=== PATIENT | male | born 1970 | race Caucasian/White ===

== ENCOUNTER 2020-07-18 14:45 | Emergency (ER) | payer MEDICAID, SELFPAY ==
--- NOTE | ~2020-07-18 | US_ITS ---
EXAMINATION: US VENOUS ULTRASOUND WITH DOPPLER LOWER EXTREMITY, BILATERAL CLINICAL INFORMATION: Bilateral lower extremity edema and pain COMPARISON: None TECHNIQUE: Ultrasound of the deep veins is performed from the hip to the calf with compression sonography and color and pulse Doppler assessment. Spectral analysis with color-flow imaging is performed. FINDINGS: RIGHT: There is normal venous compression and respiratory variation and augmented flow. The visualized common femoral vein, superficial femoral vein, profunda femoral vein, popliteal vein, and the trifurcation region shows no evidence of deep venous thrombosis. There is no significant popliteal fossa cyst. LEFT: There is normal venous compression and respiratory variation and augmented flow. The visualized common femoral vein, superficial femoral vein, profunda femoral vein, popliteal vein, and the trifurcation region shows no evidence of deep venous thrombosis. There is no significant popliteal fossa cyst. If the patient's symptoms persist, followup ultrasound in 5 days 7 days might be of value to exclude proximal propagation from a non-visualized calf vein. US/US venous duplex LE BI IMPRESSION: No DVT demonstrated in either lower extremity.
[2020-07-18 14:56] VITALS: BP 135/71; PULSE 97; RESP 18; TEMP 36.8; O2SAT 97; BMI 25.2
--- NOTE | 2020-07-18 15:02 | ED.GENADULT ---
HPI - General Adult General Chief complaint: General Medical <Armin Grullon NP - Last Filed: 07/18/20 16:54> Stated complaint: leg swelling <Armin Grullon NP - Last Filed: 07/18/20 16:54> Time Seen by Provider: 07/18/20 15:02 <Armin Grullon NP - Last Filed: 07/18/20 16:54> Source: patient <Armin Grullon NP - Last Filed: 07/18/20 16:54> Mode of arrival: ambulatory <Armin Grullon NP - Last Filed: 07/18/20 16:54> Limitations: no limitations <Armin Grullon NP - Last Filed: 07/18/20 16:54> History of Present Illness HPI narrative: Pleasant 50-year-old male with prior history of alcohol abuse has been sober for several weeks now he is in a senior living house and history of anxiety and depression who presents today with complaint of bilateral lower extremity swelling from the ankle down couple days and now up to his null. He otherwise denies any history of chest pain or shortness of breath, no redness or rash to the feet. No fever. No trouble with urination. No back pain. No headache or dizziness. <Armin Grullon NP - Last Filed: 07/18/20 16:54> Onset (ago): day(s) <Armin Grullon NP - Last Filed: 07/18/20 16:54> Location: lower extremity <Armin Grullon NP - Last Filed: 07/18/20 16:54> Radiation: non-radiation <Armin Grullon NP - Last Filed: 07/18/20 16:54> Severity: mild and moderate <Armin Grullon NP - Last Filed: 07/18/20 16:54> Quality: burning and aching <Armin Grullon NP - Last Filed: 07/18/20 16:54> Pain Consistency: constant <Armin Grullon NP - Last Filed: 07/18/20 16:54> Relieving factors: immobilization and other (Elevation) <Armin Grullon NP - Last Filed: 07/18/20 16:54> Exacerbating factors: none <Armin Grullon NP - Last Filed: 07/18/20 16:54> Associated symptoms: denies other symptoms <Armin Grullon NP - Last Filed: 07/18/20 16:54> Treatments prior to arrival: none <YADIRA Gaona Last Filed: 07/18/20 16:54> Related Data Home medications: Previous Rx's Medication Instructions Recorded furosemide [Lasix] 10 mg PO QAM #14 tab 07/18/20 <YADIRA Gaona Last Filed: 07/18/20 16:54> Allergies/adverse reactions: Allergies Allergy/AdvReac Type Severity Reaction Status Date / Time No Known Allergies Allergy Unverified 01/24/20 16:25 [No Known Allergies*] <YADIRA Gaona Last Filed: 07/18/20 16:54> Review of Systems Review of Systems: Constitutional: No Weight loss, No Fever, No Chills, No Night Sweats, No Fatigue, No Malaise ENT/Mouth: No Hearing loss, No Ear Pain, No Nasal Congestion, No Sinus Pain, No Hoarseness, No sore throat, No Rhinorrhea, No Swallowing Difficulty Eyes: No Eye Pain, No Swelling, No Redness, No Foreign Body, No Discharge, No Vision Changes Cardiovascular: No Chest Pain, No SOB, No Dyspnea on Exertion, No Orthopnea, No Palpitations Respiratory: No Cough, No Sputum, No Wheezing, No Smoke Exposure, No Dyspnea Gastrointestinal: No Nausea, No Vomiting, No Diarrhea, No Constipation, No abdominal Pain, No Hematochezia, No Melena Genitourinary: No Dysuria, No Urinary Frequency, No Hematuria, No Urinary Incontinence, No Urgency, No Flank Pain, No Urinary Flow Changes, No Hesitancy Musculoskeletal: No joint pain, No Myalgias, No Joint Swelling Skin: No Skin Lesions, No rash Neuro: No Weakness, No Numbness, No Paresthesias, No Loss of Consciousness, No Dizziness, No Headache Psych: No Anxiety/Panic, No Depression, No SI/HI/AH/VH, No Social Issues Heme/Lymph: No Bruising, No Bleeding,No Lymphadenopathy Endocrine: No Polyuria, No Polydipsia, No Temperature Intolerance <YADIRA Gaona Last Filed: 07/18/20 16:54> Yes all other systems are reviewed and are negative <Armin Grullon NP - Last Filed: 07/18/20 16:54> [facility] Past Medical History Medical History: Medical History (Updated 07/18/20 @ 17:40 by Alma Gomez NP) Alcohol abuse Anxiety Depression <Armin Grullon NP - Last Filed: 07/18/20 16:54> Social History Social History: Social History Advance Directives: No Advance Directives Information Provided: Yes <Armin rGullon NP - Last Filed: 07/18/20 16:54> Physical Exam Vital Signs: Vital Signs: Last Vital Signs Temp 98.2 F 07/18/20 14:56 Pulse 60 07/18/20 17:25 Resp 16 07/18/20 17:25 BP 142/69 H 07/18/20 17:25 Pulse Ox 98 07/18/20 17:25 Body Mass Index 25.2 Reviewed <Armin Grullon NP - Last Filed: 07/18/20 16:54> Vital Signs: Last Vital Signs Temp 98.2 F 07/18/20 14:56 Pulse 60 07/18/20 17:25 Resp 16 07/18/20 17:25 BP 142/69 H 07/18/20 17:25 Pulse Ox 98 07/18/20 17:25 Body Mass Index 25.2 <Alma Gomez NP - Last Filed: 07/18/20 17:46> Const: General: cooperative and healthy appearing; No acute distress or intoxicated appearing <Armin Grullon NP - Last Filed: 07/18/20 16:54> Nutritional Appearance: average body habitus <Armin Grullon NP - Last Filed: 07/18/20 16:54> Orientation/consciousness: patient oriented x3 <Armin Grullon NP - Last Filed: 07/18/20 16:54> HENMT: Head: Yes normal to inspection <Armin Grullon NP - Last Filed: 07/18/20 16:54> Ears: hearing grossly normal bilaterally <Armin Grullon NP - Last Filed: 07/18/20 16:54> Eyes: General: appearance normal, both eyes and all related structures <Armin Grullon NP - Last Filed: 07/18/20 16:54> Visual Enrique: normal visual enrique by confrontation <Armin Grullon NP - Last Filed: 07/18/20 16:54> Neck: Neck: Yes normal visual inspection, No positive Brudzinski's sign, No positive Kernig's sign and No tender <[facility] Mitchel - Last Filed: 07/18/20 16:54> Thyroid: Thyroid normal <[facility] Mitchel [facility] Last Filed: 07/18/20 16:54> Chest: Chest palpation & inspection: normal inspection of the chest <[facility] Grullon - Last Filed: 07/18/20 16:54> Resp: Effort & Inspection: normal respiratory effort <[facility] Grullon - Last Filed: 07/18/20 16:54> Auscultation: clear to auscultation bilaterally <[facility] Grullon - Last Filed: 07/18/20 16:54> Cardio: Jugular venous distension: no JVD <[facility] Mitchel [facility] Last Filed: 07/18/20 16:54> Rhythm: regular rhythm <[facility] Grullon - Last Filed: 07/18/20 16:54> Heart sounds: S1 normal heart sound present and S2 normal heart sound present [facility] Last Filed: 07/18/20 16:54> GI: Inspection: Yes normal to inspection <[facility] Grullon - Last Filed: 07/18/20 16:54> Palpation (GI): Soft to palpation [facility] - Last Filed: 07/18/20 16:54> Percussion: Yes normal to percussion <[facility] Grullon - Last Filed: 07/18/20 16:54> Auscultation: normal bowel sounds <[facility] - Last Filed: 07/18/20 16:54> : General: Yes no CVA tenderness <[facility] Grullon - Last Filed: 07/18/20 16:54> Back/Spine/Pelvis: Back: no CVA tenderness <[facility] Grullon - Last Filed: 07/18/20 16:54> Skin: General skin exam: no rashes or lesions noted <[facility] Grullon - Last Filed: 07/18/20 16:54> Neuro: General: patient oriented x3 <Armin Grullon NP - Last Filed: 07/18/20 16:54> Extrem: General: Yes normal to inspection <Armin Grullon NP - Last Filed: 07/18/20 16:54> Left lower extremity: full ROM, normal capillary refill and lower leg (Bilateral extremities skin tone, pulses and reflexes wnl. ) Details: non-pitting edema (Mid null down to the ankle bilateral lower extremity.) Details: 1+; no abrasions, no ecchymosis, no crepitus, no foreign bodies, no penetrating wound and no unusual warmth; no cyanosis <Armin Grullon NP - Last Filed: 07/18/20 16:54> Course Course Course Narrative: 5:30 p.m., discussion with patient regarding negative duplex and that he needs follow-up with primary care physician as he may need further diuresis for his bilateral lower extremity edema. Patient verbalized understanding of plan, states that he will do his best to make it to his primary care which may be complicated as he is in detox at this moment. Will prescribe Lasix 10 mg daily for the next 15 days. Patient does understand that he must follow up with PCP. Patient verbalized understanding of and agrees to plan of care discharge home. <Alma Gomez NP - Last Filed: 07/18/20 17:46> Reevaluation(s) Reevaluation #1: Does not report any nephrotoxic drugs, exam without any evidence of significant edema or infection. Will check labs, UA, bilateral lower extremity ultrasound rule out DVT. Differential diagnosis include but not limited to sodium retention, idiopathic venous obstruction versus sufficiency. <Armin Grullon NP - Last Filed: 07/18/20 16:54> Reevaluation #2: 1640 At this time ultrasound bilateral extremity are pending patient is in the ultrasound department labs otherwise look stable. UA without protein or ketone. Sign-out at this time pending the ultrasound results if this is negative anticipation will be for patient be discharged with elevation and sodium restriction. Case discussed with Swathi pending disposition. <Armin Grullon NP - Last Filed: 07/18/20 16:54> Medical Decision Making Lab Data Result diagrams: : 07/18/20 15:24 07/18/20 15:24 <Armin Grullon NP - Last Filed: 07/18/20 16:54> Labs: Lab Results 07/18/20 07/18/20 07/18/20 Range/Units 15:24 15:24 15:24 WBC 7.2 (4.8-10.8) X10*3/uL RBC 3.92 L (4.60-5.80) X10*6/uL Hgb 12.3 L (14.0-18.0) g/dl Hct 36.4 L (42-52) % MCV 92.9 (80-98) fL MCH 31.4 (27.0-33.0) pg MCHC 33.8 (31.0-36.0) g/dl RDW 14.0 (11.0-16.0) % Plt Count 248 (160-400) X10*3/uL MPV 8.7 L (9.4-12.4) fL Immature Gran % (Auto) 0.1 (0.0-0.4) % Neut % (Auto) 49.8 (45-73) % Lymph % (Auto) 37.8 (20-40) % [place] % (Auto) 8.3 (2-11) % Eos % (Auto) 3.3 (0-4) % Baso % (Auto) 0.7 (0-2) % Lymph # (Auto) 2.7 (1.2-4.9) X10*3/uL [place] # (Auto) 0.6 (0.1-1.2) X10*3/uL Eos # (Auto) 0.2 (0.0-0.4) X10*3/uL Baso # (Auto) 0.1 (0.0-0.2) X10*3/uL Abs Immat Gran (auto) 0.01 (0.00-0.03) X10*3/uL Absolute Neuts (auto) 3.6 (2.0-8.3) X10*3/uL Absolute Nucleated RBC 0.000 (0.0-0.012) X10*3/uL Nucleated RBC % (auto) 0.0 (0.0-0.2) /100WBC PT 11.0 (10.8-13.0) SEC INR 0.9 (0.9-1.1) APTT 33.9 (24.1-38.0) SEC Sodium 142 (135-145) mmol/L Potassium 4.2 (3.3-5.1) mmol/L Chloride 103 (96-108) mmol/L Carbon Dioxide 30 H (22-29) mmol/L Anion Gap 13 (12-20) BUN 22 H (9-16) mg/dL Creatinine 1.24 (0.5-1.4) mg/dL Estim Creat Clear Calc 67.4 Estimated GFR > 60 Random Glucose 99 (60-115) mg/dL Calcium 9.6 (8.4-10.2) mg/dL Magnesium 1.8 (1.6-2.6) mg/dL Total Bilirubin 0.2 (0.0-1.0) mg/dL AST 25 (5-37) U/L ALT 16 (0-40) U/L Alkaline Phosphatase 70 (39-117) U/L Total Creatine Kinase 187 H (38-174) U/L B-Natriuretic Peptide (<100) pg/mL Total Protein 7.1 (6.5-8.0) g/dL Albumin 4.4 (3.5-5.0) g/dL Urine Color Urine Appearance Urine pH (5.0-8.0) Ur Specific [place] (1.005-1.025) Urine Protein (NEG-TRACE) MG/DL Urine Glucose (UA) (NEG) MG/DL Urine Ketones (NEG) MG/DL Urine Blood (NEG) Urine Nitrite (NEG) Ur Leukocyte Esterase (NEG) Urine RBC (0) /HPF Urine WBC (0-4) /HPF Ur Squamous Epith Cells /LPF Urine Bacteria /LPF Urine Opiates Screen (Not Detect) Ur Barbiturates Screen (Not Detect) Ur Phencyclidine Scrn (Not Detect) Ur Amphetamines Screen (Not Detect) U Benzodiazepines Scrn (Not Detect) Urine Cocaine Screen (Not Detect) U Marijuana (THC) Screen (Not Detect) 07/18/20 07/18/20 07/18/20 Range/Units 15:24 15:31 15:31 WBC (4.8-10.8) X10*3/uL RBC (4.60-5.80) X10*6/uL Hgb (14.0-18.0) g/dl Hct (42-52) % MCV (80-98) fL MCH (27.0-33.0) pg MCHC (31.0-36.0) g/dl RDW (11.0-16.0) % Plt Count (160-400) X10*3/uL MPV (9.4-12.4) fL Immature Gran % (Auto) (0.0-0.4) % Neut % (Auto) (45-73) % Lymph % (Auto) (20-40) % [place] % (Auto) (2-11) % Eos % (Auto) (0-4) % Baso % (Auto) (0-2) % Lymph # (Auto) (1.2-4.9) X10*3/uL [place] # (Auto) (0.1-1.2) X10*3/uL Eos # (Auto) (0.0-0.4) X10*3/uL Baso # (Auto) (0.0-0.2) X10*3/uL Abs Immat Gran (auto) (0.00-0.03) X10*3/uL Absolute Neuts (auto) (2.0-8.3) X10*3/uL Absolute Nucleated RBC (0.0-0.012) X10*3/uL Nucleated RBC % (auto) (0.0-0.2) /100WBC PT (10.8-13.0) SEC INR (0.9-1.1) APTT (24.1-38.0) SEC Sodium (135-145) mmol/L Potassium (3.3-5.1) mmol/L Chloride (96-108) mmol/L Carbon Dioxide (22-29) mmol/L Anion Gap (12-20) BUN (9-16) mg/dL Creatinine (0.5-1.4) mg/dL Estim Creat Clear Calc Estimated GFR Random Glucose (60-115) mg/dL Calcium (8.4-10.2) mg/dL Magnesium (1.6-2.6) mg/dL Total Bilirubin (0.0-1.0) mg/dL AST (5-37) U/L ALT (0-40) U/L Alkaline Phosphatase (39-117) U/L Total Creatine Kinase (38-174) U/L B-Natriuretic Peptide 66 (<100) pg/mL Total Protein (6.5-8.0) g/dL Albumin (3.5-5.0) g/dL Urine Color YELLOW Urine Appearance CLEAR Urine pH 7.0 (5.0-8.0) Ur Specific [place] 1.010 (1.005-1.025) Urine Protein NEG (NEG-TRACE) MG/DL Urine Glucose (UA) NEG (NEG) MG/DL Urine Ketones NEG (NEG) MG/DL Urine Blood NEG (NEG) Urine Nitrite NEG (NEG) Ur Leukocyte Esterase NEG (NEG) Urine RBC 0 (0) /HPF Urine WBC 0 (0-4) /HPF Ur Squamous Epith Cells NONE /LPF Urine Bacteria NONE /LPF Urine Opiates Screen Not Detected (Not Detect) Ur Barbiturates Screen POSITIVE H (Not Detect) Ur Phencyclidine Scrn Not Detected (Not Detect) Ur Amphetamines Screen Not Detected (Not Detect) U Benzodiazepines Scrn Not Detected (Not Detect) Urine Cocaine Screen Not Detected (Not Detect) U Marijuana (THC) Screen Not Detected (Not Detect) <Armin Grullon, [employer] - Last Filed: 07/18/20 16:54> Lab Results 07/18/20 07/18/20 07/18/20 Range/Units 15:24 15:24 15:24 WBC 7.2 (4.8-10.8) X10*3/uL RBC 3.92 L (4.60-5.80) X10*6/uL Hgb 12.3 L (14.0-18.0) g/dl Hct 36.4 L (42-52) % MCV 92.9 (80-98) fL MCH 31.4 (27.0-33.0) pg MCHC 33.8 (31.0-36.0) g/dl RDW 14.0 (11.0-16.0) % Plt Count 248 (160-400) X10*3/uL MPV 8.7 L (9.4-12.4) fL Immature Gran % (Auto) 0.1 (0.0-0.4) % Neut % (Auto) 49.8 (45-73) % Lymph % (Auto) 37.8 (20-40) % [place] % (Auto) 8.3 (2-11) % Eos % (Auto) 3.3 (0-4) % Baso % (Auto) 0.7 (0-2) % Lymph # (Auto) 2.7 (1.2-4.9) X10*3/uL [place] # (Auto) 0.6 (0.1-1.2) X10*3/uL Eos # (Auto) 0.2 (0.0-0.4) X10*3/uL Baso # (Auto) 0.1 (0.0-0.2) X10*3/uL Abs Immat Gran (auto) 0.01 (0.00-0.03) X10*3/uL Absolute Neuts (auto) 3.6 (2.0-8.3) X10*3/uL Absolute Nucleated RBC 0.000 (0.0-0.012) X10*3/uL Nucleated RBC % (auto) 0.0 (0.0-0.2) /100WBC PT 11.0 (10.8-13.0) SEC INR 0.9 (0.9-1.1) APTT 33.9 (24.1-38.0) SEC Sodium 142 (135-145) mmol/L Potassium 4.2 (3.3-5.1) mmol/L Chloride 103 (96-108) mmol/L Carbon Dioxide 30 H (22-29) mmol/L Anion Gap 13 (12-20) BUN 22 H (9-16) mg/dL Creatinine 1.24 (0.5-1.4) mg/dL Estim Creat Clear Calc 67.4 Estimated GFR > 60 Random Glucose 99 (60-115) mg/dL Calcium 9.6 (8.4-10.2) mg/dL Magnesium 1.8 (1.6-2.6) mg/dL Total Bilirubin 0.2 (0.0-1.0) mg/dL AST 25 (5-37) U/L ALT 16 (0-40) U/L Alkaline Phosphatase 70 (39-117) U/L Total Creatine Kinase 187 H (38-174) U/L B-Natriuretic Peptide (<100) pg/mL Total Protein 7.1 (6.5-8.0) g/dL Albumin 4.4 (3.5-5.0) g/dL Urine Color Urine Appearance Urine pH (5.0-8.0) Ur Specific [place] (1.005-1.025) Urine Protein (NEG-TRACE) MG/DL Urine Glucose (UA) (NEG) MG/DL Urine Ketones (NEG) MG/DL Urine Blood (NEG) Urine Nitrite (NEG) Ur Leukocyte Esterase (NEG) Urine RBC (0) /HPF Urine WBC (0-4) /HPF Ur Squamous Epith Cells /LPF Urine Bacteria /LPF Urine Opiates Screen (Not Detect) Ur Barbiturates Screen (Not Detect) Ur Phencyclidine Scrn (Not Detect) Ur Amphetamines Screen (Not Detect) U Benzodiazepines Scrn (Not Detect) Urine Cocaine Screen (Not Detect) U Marijuana (THC) Screen (Not Detect) 07/18/20 07/18/20 07/18/20 Range/Units 15:24 15:31 15:31 WBC (4.8-10.8) X10*3/uL RBC (4.60-5.80) X10*6/uL Hgb (14.0-18.0) g/dl Hct (42-52) % MCV (80-98) fL MCH (27.0-33.0) pg MCHC (31.0-36.0) g/dl RDW (11.0-16.0) % Plt Count (160-400) X10*3/uL MPV (9.4-12.4) fL Immature Gran % (Auto) (0.0-0.4) % Neut % (Auto) (45-73) % Lymph % (Auto) (20-40) % [place] % (Auto) (2-11) % Eos % (Auto) (0-4) % Baso % (Auto) (0-2) % Lymph # (Auto) (1.2-4.9) X10*3/uL [place] # (Auto) (0.1-1.2) X10*3/uL Eos # (Auto) (0.0-0.4) X10*3/uL Baso # (Auto) (0.0-0.2) X10*3/uL Abs Immat Gran (auto) (0.00-0.03) X10*3/uL Absolute Neuts (auto) (2.0-8.3) X10*3/uL Absolute Nucleated RBC (0.0-0.012) X10*3/uL Nucleated RBC % (auto) (0.0-0.2) /100WBC PT (10.8-13.0) SEC INR (0.9-1.1) APTT (24.1-38.0) SEC Sodium (135-145) mmol/L Potassium (3.3-5.1) mmol/L Chloride (96-108) mmol/L Carbon Dioxide (22-29) mmol/L Anion Gap (12-20) BUN (9-16) mg/dL Creatinine (0.5-1.4) mg/dL Estim Creat Clear Calc Estimated GFR Random Glucose (60-115) mg/dL Calcium (8.4-10.2) mg/dL Magnesium (1.6-2.6) mg/dL Total Bilirubin (0.0-1.0) mg/dL AST (5-37) U/L ALT (0-40) U/L Alkaline Phosphatase (39-117) U/L Total Creatine Kinase (38-174) U/L B-Natriuretic Peptide 66 (<100) pg/mL Total Protein (6.5-8.0) g/dL Albumin (3.5-5.0) g/dL Urine Color YELLOW Urine Appearance CLEAR Urine pH 7.0 (5.0-8.0) Ur Specific [place] 1.010 (1.005-1.025) Urine Protein NEG (NEG-TRACE) MG/DL Urine Glucose (UA) NEG (NEG) MG/DL Urine Ketones NEG (NEG) MG/DL Urine Blood NEG (NEG) Urine Nitrite NEG (NEG) Ur Leukocyte Esterase NEG (NEG) Urine RBC 0 (0) /HPF Urine WBC 0 (0-4) /HPF Ur Squamous Epith Cells NONE /LPF Urine Bacteria NONE /LPF Urine Opiates Screen Not Detected (Not Detect) Ur Barbiturates Screen POSITIVE H (Not Detect) Ur Phencyclidine Scrn Not Detected (Not Detect) Ur Amphetamines Screen Not Detected (Not Detect) U Benzodiazepines Scrn Not Detected (Not Detect) Urine Cocaine Screen Not Detected (Not Detect) U Marijuana (THC) Screen Not Detected (Not Detect) <Alma Gomez NP - Last Filed: 07/18/20 17:46> Imaging Data Venous US: Attestation: I personally reviewed and interpreted this imaging study as follows: <Alma Gomez NP - Last Filed: 07/18/20 17:46> Radiologist's impression: EXAMINATION: US VENOUS ULTRASOUND WITH DOPPLER LOWER EXTREMITY, BILATERAL CLINICAL INFORMATION: Bilateral lower extremity edema and pain COMPARISON: None TECHNIQUE: Ultrasound of the deep veins is performed from the hip to the calf with compression sonography and color and pulse Doppler assessment. Spectral analysis with color-flow imaging is performed. FINDINGS: RIGHT: There is normal venous compression and respiratory variation and augmented flow. The visualized common femoral vein, superficial femoral vein, profunda femoral vein, popliteal vein, and the trifurcation region shows no evidence of deep venous thrombosis. There is no significant popliteal fossa cyst. LEFT: There is normal venous compression and respiratory variation and augmented flow. The visualized common femoral vein, superficial femoral vein, profunda femoral vein, popliteal vein, and the trifurcation region shows no evidence of deep venous thrombosis. There is no significant popliteal fossa cyst. If the patient's symptoms persist, followup ultrasound in 5 days 7 days might be of value to exclude proximal propagation from a non-visualized calf vein. US/US venous duplex LE BI IMPRESSION: No DVT demonstrated in either lower extremity. <Alma Gomez NP - Last Filed: 07/18/20 17:46> Discharge Plan Discharge Clinical Impression: Edema Qualifiers: Edema type: unspecified Qualified Code(s): R60.9 - Edema, unspecified <Armin Grullon NP - Last Filed: 07/18/20 16:54> Patient Disposition: Home, Self-Care <Armin Grullon NP - Last Filed: 07/18/20 16:54> Instructions: Edema (ED) <Armin Grullon NP - Last Filed: 07/18/20 16:54> Additional Instructions: You were evaluated for bilateral lower extremity edema. Your venous duplex is negative for blood clots. Please follow-up with your primary care physician. We prescribed Lasix, which is a diuretic. Please take this in the morning to help decrease lower leg swelling. You must make an appointment with your primary care physician for further care as you may need continued diuretics as well as continued follow-up for your lower extremity edema. Thank you for choosing this emergency department for evaluation. Please follow-up with primary care physician as needed. Return to the emergency department for any new, concerning, or worsening symptoms. <Armin Grullon NP - Last Filed: 07/18/20 16:54> Prescriptions: New furosemide [Lasix] 20 mg tablet 10 mg PO QAM Qty: 14 RF: 0 <Armin Grullon NP - Last Filed: 07/18/20 16:54>
[2020-07-18 15:28] LABS: MANUAL DIFF FLAG NO
[2020-07-18 15:31] LABS: Basophils Absolute Auto 0.1 X10*3/uL (0.0-0.2); Basophils Percent Auto 0.7 % (0-2); Eosinophils Absolute Auto 0.2 X10*3/uL (0.0-0.4); Eosinophils Percent Auto 3.3 % (0-4); Hematocrit 36.4 % (42-52); Hemoglobin 12.3 g/dl (14.0-18.0); Imm Gran Abs Auto 0.01 X10*3/uL (0.00-0.03); Imm Gran Pct Auto 0.1 % (0.0-0.4); Lymphocytes Absolute Auto 2.7 X10*3/uL (1.2-4.9); Lymphocytes Percent Auto 37.8 % (20-40); Mean Corpuscular HGB Conc 33.8 g/dl (31.0-36.0); Mean Corpuscular Hemoglobin 31.4 pg (27.0-33.0); Mean Corpuscular Volume 92.9 fL (80-98); Mean Platelet Volume 8.7 fL (9.4-12.4); Monocytes Absolute Auto 0.6 X10*3/uL (0.1-1.2); Monocytes Percent Auto 8.3 % (2-11); Neutrophils Absolute Auto 3.6 X10*3/uL (2.0-8.3); Neutrophils Percent Auto 49.8 % (45-73); Platelet Count 248 X10*3/uL (160-400); Red Blood Count 3.92 X10*6/uL (4.60-5.80); White Blood Count 7.2 X10*3/uL (4.8-10.8)
[2020-07-18 15:39] LABS: Glucose Urine UA NEG (NEG); Leukocyte Esterase Urine NEG (NEG); Nitrite Urine NEG (NEG); Urine Blood NEG (NEG); Urine Ketones NEG (NEG); Urine Protein NEG (NEG-TRACE)
[2020-07-18 15:45] LABS: Appearance Urine CLEAR; Color Urine YELLOW
[2020-07-18 15:49] LABS: INTERNATIONAL NORM RATIO 0.9 (0.9-1.1)
--- NOTE | 2020-07-18 15:49 | PC.NURSE ---
SLOW STEADY GAIT MOVING ALL EXTREMITIES TO BATHROOM AND BACK TO ROOM, AMBULATED 40 FT. NO SOB OR DIFF BREATHING, A+OX3, COOPERATIVE, AWAITING US.
[2020-07-18 15:52] LABS: Partial Thromboplastin Time 33.9 SEC (24.1-38.0)
[2020-07-18 15:54] LABS: RBC Urine 0 /HPF (0); WBC Urine 0 /HPF (0-4)
[2020-07-18 15:58] LABS: Alanine Aminotransferase 16 U/L (0-40); Albumin Level 4.4 g/dL (3.5-5.0); Alkaline Phosphatase 70 U/L (39-117); Anion Gap 13 (12-20); Aspartate Amino Transferase 25 U/L (5-37); Bilirubin Total 0.2 mg/dL (0.0-1.0); Blood Urea Nitrogen 22 mg/dL (9-16); Calcium 9.6 mg/dL (8.4-10.2); Carbon Dioxide 30 mmol/L (22-29); Chloride 103 mmol/L (96-108); Creatinine Clr Calc Pharmacy 67.4; Estimated Glomerular Filt Rate > 60; Glucose Random 99 mg/dL (60-115); Magnesium 1.8 mg/dL (1.6-2.6); Potassium 4.2 mmol/L (3.3-5.1); Sodium 142 mmol/L (135-145); Total Protein 7.1 g/dL (6.5-8.0)
[2020-07-18 16:02] LABS: B Type Natriuretic Peptide 66 pg/mL (<100)
[2020-07-18 16:08] LABS: Amphetamine Screen Urine Not Detected (Not Detect); Barbiturates, Urine POSITIVE (Not Detect); Benzodiazepines Screen Urine Not Detected (Not Detect); Cannabinoid Screen Urine Not Detected (Not Detect); Cocaine Screen Urine Not Detected (Not Detect); Opiate Screen Urine Not Detected (Not Detect); Phencyclidine Screen Urine Not Detected (Not Detect)
[2020-07-18 17:25] VITALS: BP 142/69; PULSE 60; RESP 16; O2SAT 98
== END 2020-07-18 17:54 | disposition home or self-care (01) ==
PROVIDERS: Nurse Practitioner Primary Care; Emergency Provider Emergency Medicine Emergency Medical Services; PCP Nurse Practitioner Family
DX: R60.0 Localized edema (principal); M79.662 Pain in left lower leg; M79.661 Pain in right lower leg; F10.10 Alcohol abuse, uncomplicated
CPT/HCPCS: 36415; 80053; 80307; 81001; 82550; 83735; 83880; 85025; 85610; 85730; 93970; 99284

== ENCOUNTER 2021-08-11 19:10 | Emergency (ER) | payer MEDICAID, SELFPAY ==
[2021-08-11 19:24] VITALS: BP 139/99; PULSE 100; RESP 18; TEMP 36.5; O2SAT 96; BMI 23.2
--- NOTE | 2021-08-11 19:28 | ED.PSYCH ---
HPI - Psych General Chief Complaint: Psychiatric Symptoms Stated Complaint: SECTION 12 BY THERAPIST,ETOH INTOX,CPD FOR SAFETY Source: patient Mode of arrival: ambulatory Limitations: no limitations History of Present Illness HPI Narrative: 51-year-old male history of depression brought to ED by police under Section 12 for further evaluation. Patient was sent by therapist due to patient making suicidal/homicidal ideations/statements during his therapy visit. As per police patient so far has been pleasant. Related Data Home Medications Medication Instructions Recorded Confirmed acamprosate 333 mg tablet,delayed 2 tab PO BID 08/11/21 08/11/21 release folic acid 1 mg tablet 1 tab PO QAM 08/11/21 08/11/21 hydroxyzine HCl 50 mg tablet 1 - 2 tab PO Q8H PRN 08/11/21 08/11/21 thiamine HCl (vitamin B1) 100 mg 1 tab PO DAILY 08/11/21 08/11/21 tablet Allergies Allergy/AdvReac Type Severity Reaction Status Date / Time No Known Allergies Allergy Unverified 01/24/20 16:25 [No Known Allergies*] Review of Systems Review of Systems: Suicidal/homicidal ideation Yes all other systems are reviewed and are negative [facility] Past Medical History Medical History (Updated 08/12/21 @ 00:05 by ANA Ochoa) Alcohol abuse Anxiety Depression Social History Social History Advance Directives: No Advance Directives Information Provided: Yes Physical Exam Vital Signs: Vital Signs: Last Vital Signs Temp 97.7 F 08/11/21 19:24 Pulse 100 08/11/21 19:24 Resp 18 08/11/21 19:24 BP 139/99 H 08/11/21 19:24 Pulse Ox 96 08/11/21 19:24 BMI result Body Mass Index 23.2 Const: General: cooperative, healthy appearing, comfortable, no acute distress, well developed, alert, awake and Physically active Orientation/consciousness: patient oriented x3 HEENT: Head: Yes normal to inspection, Yes No palpable skull fracture present, Yes normocephalic and No atraumatic Eyes: General: appearance normal, both eyes and all related structures Neck: Neck: Yes normal visual inspection, Yes full ROM, Yes no lymphadenopathy, Yes no meningeal signs, Yes trachea midline, Yes supple, No anterior neck swelling and No tender Chest: Chest palpation & inspection: normal inspection of the chest and normal palpation of entire chest wall Resp: Effort & Inspection: normal respiratory effort and able to speak in complete sentences Auscultation: clear to auscultation bilaterally Cardio: Jugular venous distension: no JVD Heart sounds: S1 normal heart sound present and S2 normal heart sound present GI: Inspection: Yes normal to inspection Palpation (GI): Soft to palpation, not firm, nontender, no guarding and not rigid : General: No CVA tenderness and Yes no CVA tenderness Back/Spine/Pelvis: Back: no CVA tenderness, No CVA tenderness and No back tenderness Skin: General skin exam: no rashes or lesions noted and elasticity normal Neuro: General: patient oriented x3, gait normal, no meningeal signs and CN's II-XI intact bilaterally Cranial nerves: Yes CN's II-XII intact bilaterally Extrem: General: Yes normal to inspection and Yes full ROM Psych: Appearance: grossly normal, well kempt and not disheveled Course Course Course Narrative: Will do basic labs and for crisis evaluation. Reevaluation(s) Reevaluation #1: Alcohol level 386. Patient rest of labs are normal. Patient waiting for [facility] evaluation Time: 00:05 [facility] - Psych Lab Data Result diagrams: 08/11/21 19:54 08/11/21 19:54 Labs: Lab Results 08/11/21 08/11/21 08/11/21 Range/Units 19:54 19:54 19:54 WBC 6.9 (4.8-10.8) X10*3/uL RBC 4.22 L (4.60-5.80) X10*6/uL Hgb 13.4 L (14.0-18.0) g/dl Hct 39.8 L (42.0-52.0) % MCV 94.3 (80.0-98.0) fL MCH 31.8 (27.0-33.0) pg MCHC 33.7 (31.0-36.0) g/dl RDW 15.4 (11.0-16.0) % Plt Count 247 (160-400) X10*3/uL MPV 9.0 L (9.4-12.4) fL Immature Gran % (Auto) 0.3 (0.0-0.4) % Neut % (Auto) 34.1 L (45-73) % Lymph % (Auto) 51.2 H (20-40) % [place] % (Auto) 8.2 (2-11) % Eos % (Auto) 5.2 H (0-4) % Baso % (Auto) 1.0 (0-2) % Lymph # (Auto) 3.5 (1.2-4.9) X10*3/uL [place] # (Auto) 0.6 (0.1-1.2) X10*3/uL Eos # (Auto) 0.4 (0.0-0.4) X10*3/uL Baso # (Auto) 0.1 (0.0-0.2) X10*3/uL Abs Immat Gran (auto) 0.02 (0.00-0.03) X10*3/uL Absolute Neuts (auto) 2.4 (2.0-8.3) x10*3/uL Absolute Nucleated RBC 0.000 (0.0-0.012) X10*3/uL Nucleated RBC % (auto) 0.0 (0.0-0.2) /100WBC Sodium 140 (135-145) mmol/L Potassium 4.2 (3.3-5.1) mmol/L Chloride 104 (96-108) mmol/L Carbon Dioxide 24 (22-29) mmol/L Anion Gap 16 (12-20) BUN 12 (9-16) mg/dL Creatinine 0.97 (0.5-1.4) mg/dL Estim Creat Clear Calc 85.2 Estimated GFR > 60 Random Glucose 115 (60-115) mg/dL Calcium 9.1 (8.4-10.2) mg/dL Magnesium 2.1 (1.6-2.6) mg/dL Total Bilirubin 0.3 (0.0-1.0) mg/dL Direct Bilirubin 0.2 (0.0-0.5) mg/dL AST 41 H D (5-37) U/L ALT 33 (0-40) U/L Alkaline Phosphatase 88 D (39-117) U/L Total Protein 8.3 H (6.5-8.0) g/dL Albumin 5.0 (3.5-5.0) g/dL Urine Color Urine Appearance Urine pH (5.0-8.0) Ur Specific [place] (1.005-1.025) Urine Protein (NEG-TRACE) MG/DL Urine Glucose (UA) (NEG) MG/DL Urine Ketones (NEG) MG/DL Urine Blood (NEG) Urine Nitrite (NEG) Ur Leukocyte Esterase (NEG) Urine RBC (0) /HPF Urine WBC (0-4) /HPF Ur Squamous Epith Cells /LPF Urine Bacteria /LPF Hyaline Casts /LPF Granular Casts /LPF Urine Mucus /LPF Salicylates < 5.0 L (15-30) mg/dL Urine Opiates Screen (Not Detect) Urine Fentanyl Screen (Not Detect) Acetaminophen < 1 (<30) mcg/mL Ur Barbiturates Screen (Not Detect) Ur Phencyclidine Scrn (Not Detect) Ur Amphetamines Screen (Not Detect) U Benzodiazepines Scrn (Not Detect) Urine Cocaine Screen (Not Detect) U Marijuana (THC) Screen (Not Detect) Ethyl Alcohol mg/dL COVID-19 ([facility]) Negative (Negative) COVID-19 Clin Com See Note 08/11/21 08/11/21 08/11/21 Range/Units 19:54 19:54 19:54 WBC (4.8-10.8) X10*3/uL RBC (4.60-5.80) X10*6/uL Hgb (14.0-18.0) g/dl Hct (42.0-52.0) % MCV (80.0-98.0) fL MCH (27.0-33.0) pg MCHC (31.0-36.0) g/dl RDW (11.0-16.0) % Plt Count (160-400) X10*3/uL MPV (9.4-12.4) fL Immature Gran % (Auto) (0.0-0.4) % Neut % (Auto) (45-73) % Lymph % (Auto) (20-40) % [place] % (Auto) (2-11) % Eos % (Auto) (0-4) % Baso % (Auto) (0-2) % Lymph # (Auto) (1.2-4.9) X10*3/uL [place] # (Auto) (0.1-1.2) X10*3/uL Eos # (Auto) (0.0-0.4) X10*3/uL Baso # (Auto) (0.0-0.2) X10*3/uL Abs Immat Gran (auto) (0.00-0.03) X10*3/uL Absolute Neuts (auto) (2.0-8.3) x10*3/uL Absolute Nucleated RBC (0.0-0.012) X10*3/uL Nucleated RBC % (auto) (0.0-0.2) /100WBC Sodium (135-145) mmol/L Potassium (3.3-5.1) mmol/L Chloride (96-108) mmol/L Carbon Dioxide (22-29) mmol/L Anion Gap (12-20) BUN (9-16) mg/dL Creatinine (0.5-1.4) mg/dL Estim Creat Clear Calc Estimated GFR Random Glucose (60-115) mg/dL Calcium (8.4-10.2) mg/dL Magnesium (1.6-2.6) mg/dL Total Bilirubin (0.0-1.0) mg/dL Direct Bilirubin (0.0-0.5) mg/dL AST (5-37) U/L ALT (0-40) U/L Alkaline Phosphatase (39-117) U/L Total Protein (6.5-8.0) g/dL Albumin (3.5-5.0) g/dL Urine Color YELLOW Urine Appearance CLEAR Urine pH 5.0 (5.0-8.0) Ur Specific [place] >= 1.030 H (1.005-1.025) Urine Protein 2+ H (NEG-TRACE) MG/DL Urine Glucose (UA) NEG (NEG) MG/DL Urine Ketones NEG (NEG) MG/DL Urine Blood TRACE (NEG) Urine Nitrite NEG (NEG) Ur Leukocyte Esterase NEG (NEG) Urine RBC 1-4 (0) /HPF Urine WBC 0-2 (0-4) /HPF Ur Squamous Epith Cells TRACE /LPF Urine Bacteria NONE /LPF Hyaline Casts >50 /LPF Granular Casts 1-4 /LPF Urine Mucus 1+ /LPF Salicylates (15-30) mg/dL Urine Opiates Screen Not Detected (Not Detect) Urine Fentanyl Screen Not Detected (Not Detect) Acetaminophen (<30) mcg/mL Ur Barbiturates Screen Not Detected (Not Detect) Ur Phencyclidine Scrn Not Detected (Not Detect) Ur Amphetamines Screen Not Detected (Not Detect) U Benzodiazepines Scrn POSITIVE H (Not Detect) Urine Cocaine Screen Not Detected (Not Detect) U Marijuana (THC) Screen POSITIVE H (Not Detect) Ethyl Alcohol 386 H* mg/dL COVID-19 ([facility]) (Negative) COVID-19 Clin Com Discharge Plan Discharge Clinical Impression: Depression Patient Disposition: Still a Patient Prescriptions: No Action thiamine HCl (vitamin B1) 100 mg tablet 1 tab PO DAILY 0RF hydroxyzine HCl 50 mg tablet 1 - 2 tab PO Q8H PRN (Reason: Anxiety) 0RF folic acid 1 mg tablet 1 tab PO QAM 0RF acamprosate 333 mg tablet,delayed release (DR/EC) 2 tab PO BID 0RF
[2021-08-11 20:01] LABS: MANUAL DIFF FLAG NO
[2021-08-11 20:03] LABS: Appearance Urine CLEAR; Basophils Absolute Auto 0.1 X10*3/uL (0.0-0.2); Color Urine YELLOW; Eosinophils Absolute Auto 0.4 X10*3/uL (0.0-0.4); Eosinophils Percent Auto 5.2 % (0-4); Glucose Urine UA NEG (NEG); Hematocrit 39.8 % (42.0-52.0); Hemoglobin 13.4 g/dl (14.0-18.0); Imm Gran Abs Auto 0.02 X10*3/uL (0.00-0.03); Imm Gran Pct Auto 0.3 % (0.0-0.4); Leukocyte Esterase Urine NEG (NEG); Lymphocytes Absolute Auto 3.5 X10*3/uL (1.2-4.9); Lymphocytes Percent Auto 51.2 % (20-40); Mean Corpuscular HGB Conc 33.7 g/dl (31.0-36.0); Mean Corpuscular Hemoglobin 31.8 pg (27.0-33.0); Mean Corpuscular Volume 94.3 fL (80.0-98.0); Monocytes Absolute Auto 0.6 X10*3/uL (0.1-1.2); Monocytes Percent Auto 8.2 % (2-11); Neutrophils Absolute Auto 2.4 x10*3/uL (2.0-8.3); Neutrophils Percent Auto 34.1 % (45-73); Nitrite Urine NEG (NEG); Platelet Count 247 X10*3/uL (160-400); Red Blood Count 4.22 X10*6/uL (4.60-5.80); Red Cell Distribution Width 15.4 % (11.0-16.0); Specific Gravity - Urine >= 1.030 (1.005-1.025); Urine Blood TRACE (NEG); Urine Ketones NEG (NEG); Urine Protein 2+ MG/DL (NEG-TRACE); White Blood Count 6.9 X10*3/uL (4.8-10.8)
[2021-08-11 20:16] LABS: COVID-19 Test Negative (Negative); Ethanol 386 mg/dL
[2021-08-11 20:19] LABS: Amphetamine Screen Urine Not Detected (Not Detect); Barbiturates, Urine Not Detected (Not Detect); Benzodiazepines Screen Urine POSITIVE (Not Detect); Cannabinoid Screen Urine POSITIVE (Not Detect); Cocaine Screen Urine Not Detected (Not Detect); Fentanyl, urine Not Detected (Not Detect); Opiate Screen Urine Not Detected (Not Detect); Phencyclidine Screen Urine Not Detected (Not Detect)
[2021-08-11 20:21] LABS: Acetaminophen LAB < 1 mcg/mL (<30); Alanine Aminotransferase 33 U/L (0-40); Alkaline Phosphatase 88 U/L (39-117); Anion Gap 16 (12-20); Aspartate Amino Transferase 41 U/L (5-37); Bilirubin Direct 0.2 mg/dL (0.0-0.5); Bilirubin Total 0.3 mg/dL (0.0-1.0); Blood Urea Nitrogen 12 mg/dL (9-16); Calcium 9.1 mg/dL (8.4-10.2); Carbon Dioxide 24 mmol/L (22-29); Chloride 104 mmol/L (96-108); Creatinine Clr Calc Pharmacy 85.2; Estimated Glomerular Filt Rate > 60; Glucose Random 115 mg/dL (60-115); Magnesium 2.1 mg/dL (1.6-2.6); Potassium 4.2 mmol/L (3.3-5.1); Salicylate < 5.0 mg/dL (15-30); Sodium 140 mmol/L (135-145); Total Protein 8.3 g/dL (6.5-8.0)
[2021-08-11 20:27] LABS: Hyaline Casts Urine >50 /LPF; Mucus Urine 1+ /LPF; Squamous Epithelial Cell Urine TRACE /LPF; WBC Urine 0-2 /HPF (0-4)
[2021-08-12] MEDS: hydrOXYzine HCL 50 MG TABLET PO ×2 (01:11→10:20)
[2021-08-12] MEDS: Folic Acid 1 MG TABLET PO ×2 (01:12→10:20)
[2021-08-12] MEDS: Acamprosate Calcium 333 MG TABLET.DR 666 MG PO ×2 (01:12→10:20)
[2021-08-12] MEDS: cloNIDine HCL 0.1 MG TABLET PO ×2 (01:12→10:19)
[2021-08-12 06:07] VITALS: BP 120/71; PULSE 71; RESP 17; TEMP 37; O2SAT 96
--- NOTE | 2021-08-12 07:01 | PC.NURSE ---
Report received, pt currently sleeping, respirations even and unlabored, in no apparent distress. Pt waiting to be seen by N.
[2021-08-12] MEDS: Thiamine HCL 100 MG TABLET PO (10:20)
[2021-08-12 10:24] VITALS: BP 128/75; PULSE 74; RESP 17; TEMP 36.6; O2SAT 97
--- NOTE | 2021-08-12 11:58 | MHC.CARE ---
CARE Team evaluated patient, he does not need inpatient psychiatric treatment at this time. Has outpatient providers, court tomorrow. Pathology Technician will speak with patient. Provider updated and written assessment to follow.
[2021-08-12] MEDS: Buprenorphine/Naloxone 2/0.5mg FILM 2 FILM SUBLINGUAL (12:05)
--- NOTE | 2021-08-12 12:07 | PC.NURSE ---
PT reports that he takes 2mg suboxone daily, instead of his prescribed 4 mg. Pt accepted one 2mg/0.5mg suboxone film.
--- NOTE | 2021-08-12 13:31 | MHC.RECOVSUP ---
? Reason for consult:recovery Support o Current location:[facility] o Identified substance use concern: ETOH - Support ? Intervention : None ? Plan: o Patient to follow up with [facility] after discharge ? Additional information: Patient uncooperative, failed to participate in any type of interview. States: He has a Bale Piler already with [facility]. Will F/u this evening.
--- NOTE | 2021-08-13 09:54 | MHC.CARE ---
CARE Team Topology Professor made follow-up call with pt. Pt. stated that he is feeling pissed off and frustrated due to his meeting at court later today. He stated that there has been a mix up and he should not have to go to court. The pt. reported that he has a therapist and field hockey and lacrosse coach that he will be in contact with later this day to help manage his emotions. CARE Team dental internship let the pt. know that if he is still feeling frustrated and angry, he can call CARE Team later on if needed.
== END 2021-08-12 15:00 | disposition home or self-care (01) ==
PROVIDERS: Physician Assistant; Emergency Provider Internal Medicine
DX: F32.A Depression, unspecified (principal); F10.10 Alcohol abuse, uncomplicated; Y90.8 Blood alcohol level of 240 mg/100 ml or more; R45.851 Suicidal ideations; R45.850 Homicidal ideations; F41.9 Anxiety disorder, unspecified; Z20.822 Contact with and (suspected) exposure to COVID-19; Z79.899 Other long term (current) drug therapy
CPT/HCPCS: 36415; 80048; 80076; 80143; 80179; 80307; 81001; 82077; 83735; 85025; 87635; 99284

== ENCOUNTER 2021-10-28 11:13 | Inpatient (IN) | payer MEDICAID, SELFPAY ==
--- NOTE | ~2021-10-28 | CT_ITS ---
EXAMINATION: CT HEAD WITHOUT CONTRAST CLINICAL INFORMATION: EtOH,Trauma. Seizure. COMPARISON: None TECHNIQUE: Contiguous axial imaging was performed from the skull base to vertex without intravenous administration of contrast. This CT examination was performed using dose optimization techniques as appropriate, variously including the following: *Automated exposure control *Adjustment of mA and/or kV according to patient size (this includes techniques or standardized protocols for targeted exams where dose is matched to indication/reason for exam; i.e. extremities or head) *Use of iterative reconstruction technique DLP: 730 mGy-cm FINDINGS: There is no evidence of acute intracranial hemorrhage or territorial infarction. No abnormal mass effect or midline shift is seen. Baker to white matter differentiation is well preserved. No extra-axial fluid collections are identified. There is a large anterior interhemispheric meningeal calcification. The ventricles are normal in size. There is no abnormal attenuation within the brain parenchyma. The osseous structures and soft tissues are normal. There is mild mucoperiosteal thickening bilateral frontal and ethmoid sinuses. CT/CT head/brain wo con IMPRESSION: No acute intracranial process seen. Chronic bilateral frontal and anterior ethmoid sinus inflammatory changes.
--- NOTE | 2021-10-28 11:23 | ECG_ITS ---
Test Reason : tachycardia Blood Pressure : / mmHG Vent. Rate : 104 BPM Atrial Rate : 104 BPM P-R Int : 146 ms QRS Dur : 100 ms QT Int : 388 ms P-R-T Axes : 045 010 041 degrees QTc Int : 510 ms Sinus tachycardia Otherwise normal ECG When compared with ECG of 20-JUN-2018 19:09, Vent. rate has increased BY 45 BPM Referred By: Isis Tran Electronically Signed By:ORA ARRIETA MD
--- NOTE | 2021-10-28 11:23 | ED_ITS ---
HPI - General Adult General Chief complaint: Psychiatric Symptoms Stated complaint: SZ,?PSYCH,NOT COOPERATIVE PER EMS Time Seen by Provider: 10/28/21 11:17 Source: EMS Limitations: no limitations History of Present Illness HPI narrative: Patient comes to the emergency room by EMS. Per bystanders, around 08:45, patient was found seizing, once the seizure stopped, by standard took the patient to his apartment. Per EMS, patient was initially calm, cooperative but gradually became agitated. By the Time EMS got there, initially patient was angry, seems that he was only alert and oriented x1, gradually became aggressive. Per EMS, the patient has been hallucinating, seems that he is seeing and hearing things, patient has history of schizophrenia. The patient had called earlier today his psychiatrist. Made unclear SI statements. On arrival to the emergency room, patient is alert and oriented x1, agitated, uncooperative, unable to provide any history. Patient does not take any medications for seizures. Related Data Home Medications Medication Instructions Recorded Confirmed acamprosate 333 mg tablet,delayed 2 tab PO BID 08/11/21 08/11/21 release folic acid 1 mg tablet 1 tab PO QAM 08/11/21 08/11/21 hydroxyzine HCl 50 mg tablet 1 - 2 tab PO Q8H PRN Anxiety 08/11/21 08/11/21 thiamine HCl (vitamin B1) 100 mg 1 tab PO DAILY 08/11/21 08/11/21 tablet buprenorphine 2 mg-naloxone 0.5 mg 2 film buccal DAILY 08/12/21 08/12/21 sublingual film (Suboxone) clonidine HCl 0.1 mg tablet 1 - 2 tab PO TID 08/12/21 08/12/21 Allergies Allergy/AdvReac Type Severity Reaction Status Date / Time No Known Allergies Allergy Unverified 01/24/20 16:25 [No Known Allergies*] Review of Systems Review of Systems: Yes Unobtainable due to mental condition PMFSH Past Medical History Medical History (Updated 10/28/21 @ 11:34 by Isis Tran MD) Adjustment disorder Alcohol abuse Schizophrenia Seizure disorder Social History Social History Advance Directives: No Advance Directives Information Provided: No Physical Exam ED Vital Signs: Vital Signs - 24 hr 10/28/21 11:30 10/28/21 14:13 Temperature 98.6 F 97.4 F Pulse Rate 115 H 93 Respiratory Rate 18 Blood Pressure 178/88 H 114/80 Pulse Oximetry 99 95 Oxygen Delivery Method Room Air Nasal Cannula Oxygen Flow Rate 1 BMI result Body Mass Index 22.7 Const Other: Appearance: Alert. Oriented X1. Agitated, combative Eyes: Pupils equal, round and reactive to light. ENT: Pharynx normal. Neck: Normal inspection. Neck supple. No lymph nodes noted. No crepitus CVS: Normal heart rate and rhythm. Pulses normal. Normal S1 and S2 Respiratory: No respiratory distress. Breath sounds normal. No Wheezing. No rales Abdomen: Soft and nontender. No rigidity. No distention. Skin: Skin warm and dry. Normal skin color. Normal skin turgor. Extremities: No lower extremity edema. No Lacerations. No Rash Neuro: Oriented X1. No motor deficit. No sensory deficit. Moving all extremities. No slurred speech. CN 2 through 12 grossly intact Psych: Combative, uncooperative Course Course Course Narrative: At this time, it is unclear if patient if SI, since that he made vague SI statements. Also, patient may be psychotic versus postictal versus ETOH intoxication. Patient is uncooperative, throwing punches, trying to get out of bed. Patient had to be chemically restrained with IM Benadryl 50 mg, Ativan 2 mg, Haldol 5 mg. Patient's white blood cell count and lactic acid are elevated, likely secondary to the seizure. Sepsis is not suspected. Patient is getting at loading dose of Keppra 1500 mg and IV fluids Unclear if the seizure was an epileptic seizure versus withdrawal seizure. As part of patient's chemical sedation, patient received Ativan I discussed the patient with Dr. Bess, patient being admitted. Medical Decision Making Lab Data Result diagrams: 10/28/21 12:13 10/28/21 12:13 Labs: Lab Results 10/28/21 10/28/21 10/28/21 Range/Units 12:13 12:13 12:13 WBC 16.5 H (4.8-10.8) X10*3/uL RBC 4.71 (4.60-5.80) X10*6/uL Hgb 13.8 L (14.0-18.0) g/dl Hct 40.4 L (42.0-52.0) % MCV 85.8 (80.0-98.0) fL MCH 29.3 (27.0-33.0) pg MCHC 34.2 (31.0-36.0) g/dl RDW 11.9 (11.0-16.0) % Plt Count 234 (160-400) X10*3/uL MPV 8.9 L (9.4-12.4) fL Immature Gran % (Auto) 0.4 (0.0-0.4) % Neut % (Auto) 84.2 H (45-73) % Lymph % (Auto) 10.2 L (20-40) % [place] % (Auto) 4.5 (2-11) % Eos % (Auto) 0.2 (0-4) % Baso % (Auto) 0.5 (0-2) % Lymph # (Auto) 1.7 (1.2-4.9) X10*3/uL [place] # (Auto) 0.7 (0.1-1.2) X10*3/uL Eos # (Auto) 0.0 (0.0-0.4) X10*3/uL Baso # (Auto) 0.1 (0.0-0.2) X10*3/uL Abs Immat Gran (auto) 0.07 H (0.00-0.03) X10*3/uL Absolute Neuts (auto) 13.9 H (2.0-8.3) x10*3/uL Absolute Nucleated RBC 0.000 (0.0-0.012) X10*3/uL Nucleated RBC % (auto) 0.0 (0.0-0.2) /100WBC Sodium 142 (135-145) mmol/L Potassium 3.9 (3.3-5.1) mmol/L Chloride 102 (96-108) mmol/L Carbon Dioxide 17 L (22-29) mmol/L Anion Gap 27 H (12-20) BUN 18 H (9-16) mg/dL Creatinine 1.09 (0.5-1.4) mg/dL Estim Creat Clear Calc 72.9 Estimated GFR > 60 Random Glucose 61 D (60-115) mg/dL Lactic Acid 7.1 H* (0.5-2.0) mmol/L Calcium 9.3 (8.4-10.2) mg/dL Magnesium 1.8 (1.6-2.6) mg/dL Total Bilirubin 0.4 (0.0-1.0) mg/dL Direct Bilirubin 0.2 (0.0-0.5) mg/dL AST 91 H (5-37) U/L ALT 43 H (0-40) U/L Alkaline Phosphatase 79 (39-117) U/L Total Protein 7.8 (6.5-8.0) g/dL Albumin 4.9 (3.5-5.0) g/dL Ethyl Alcohol mg/dL COVID-19 ([facility]) (Negative) COVID-19 Clin Com 10/28/21 10/28/21 Range/Units 12:13 12:13 WBC (4.8-10.8) X10*3/uL RBC (4.60-5.80) X10*6/uL Hgb (14.0-18.0) g/dl Hct (42.0-52.0) % MCV (80.0-98.0) fL MCH (27.0-33.0) pg MCHC (31.0-36.0) g/dl RDW (11.0-16.0) % Plt Count (160-400) X10*3/uL MPV (9.4-12.4) fL Immature Gran % (Auto) (0.0-0.4) % Neut % (Auto) (45-73) % Lymph % (Auto) (20-40) % [place] % (Auto) (2-11) % Eos % (Auto) (0-4) % Baso % (Auto) (0-2) % Lymph # (Auto) (1.2-4.9) X10*3/uL [place] # (Auto) (0.1-1.2) X10*3/uL Eos # (Auto) (0.0-0.4) X10*3/uL Baso # (Auto) (0.0-0.2) X10*3/uL Abs Immat Gran (auto) (0.00-0.03) X10*3/uL Absolute Neuts (auto) (2.0-8.3) x10*3/uL Absolute Nucleated RBC (0.0-0.012) X10*3/uL Nucleated RBC % (auto) (0.0-0.2) /100WBC Sodium (135-145) mmol/L Potassium (3.3-5.1) mmol/L Chloride (96-108) mmol/L Carbon Dioxide (22-29) mmol/L Anion Gap (12-20) BUN (9-16) mg/dL Creatinine (0.5-1.4) mg/dL Estim Creat Clear Calc Estimated GFR Random Glucose (60-115) mg/dL Lactic Acid (0.5-2.0) mmol/L Calcium (8.4-10.2) mg/dL Magnesium (1.6-2.6) mg/dL Total Bilirubin (0.0-1.0) mg/dL Direct Bilirubin (0.0-0.5) mg/dL AST (5-37) U/L ALT (0-40) U/L Alkaline Phosphatase (39-117) U/L Total Protein (6.5-8.0) g/dL Albumin (3.5-5.0) g/dL Ethyl Alcohol 207 mg/dL COVID-19 ([facility]) Negative (Negative) COVID-19 Clin Com See Note Imaging Data CT scan - head: Radiologist's impression: FINDINGS: There is no evidence of acute intracranial hemorrhage or territorial infarction. No abnormal mass effect or midline shift is seen. Baker to white matter differentiation is well preserved. No extra-axial fluid collections are identified. There is a large anterior interhemispheric meningeal calcification. The ventricles are normal in size. There is no abnormal attenuation within the brain parenchyma. The osseous structures and soft tissues are normal. There is mild mucoperiosteal thickening bilateral frontal and ethmoid sinuses. CT/CT head/brain wo con IMPRESSION: No acute intracranial process seen. ? Chronic bilateral frontal and anterior ethmoid sinus inflammatory changes. ? Discharge Plan Discharge Clinical Impression: Seizure, Alcohol abuse Patient Disposition: Admitted As Inpatient
[2021-10-28] MEDS: Haloperidol Lactate 5 MG/ML VIAL IM (11:25)
[2021-10-28] MEDS: LORazepam 2 MG/ML VIAL IM (11:27)
[2021-10-28] MEDS: diphenhydrAMINE HCL 50 MG/ML VIAL IM (11:29)
[2021-10-28 11:30] VITALS: BP 178/88; PULSE 115; RESP 18; TEMP 37; O2SAT 99; BMI 22.7
[2021-10-28 12:18] LABS: MANUAL DIFF FLAG NO
[2021-10-28 12:19] LABS: Basophils Absolute Auto 0.1 X10*3/uL (0.0-0.2); Basophils Percent Auto 0.5 % (0-2); Eosinophils Percent Auto 0.2 % (0-4); Hematocrit 40.4 % (42.0-52.0); Hemoglobin 13.8 g/dl (14.0-18.0); Imm Gran Abs Auto 0.07 X10*3/uL (0.00-0.03); Imm Gran Pct Auto 0.4 % (0.0-0.4); Lymphocytes Absolute Auto 1.7 X10*3/uL (1.2-4.9); Lymphocytes Percent Auto 10.2 % (20-40); Mean Corpuscular HGB Conc 34.2 g/dl (31.0-36.0); Mean Corpuscular Hemoglobin 29.3 pg (27.0-33.0); Mean Corpuscular Volume 85.8 fL (80.0-98.0); Mean Platelet Volume 8.9 fL (9.4-12.4); Monocytes Absolute Auto 0.7 X10*3/uL (0.1-1.2); Monocytes Percent Auto 4.5 % (2-11); Neutrophils Absolute Auto 13.9 x10*3/uL (2.0-8.3); Neutrophils Percent Auto 84.2 % (45-73); Platelet Count 234 X10*3/uL (160-400); Red Blood Count 4.71 X10*6/uL (4.60-5.80); Red Cell Distribution Width 11.9 % (11.0-16.0); White Blood Count 16.5 X10*3/uL (4.8-10.8)
[2021-10-28 12:33] LABS: COVID-19 Test Negative (Negative); IDNOW Serial# 16C4AD1C
[2021-10-28 12:35] LABS: Ethanol 207 mg/dL
[2021-10-28 13:16] LABS: Lactic Acid 7.1 mmol/L (0.5-2.0)
[2021-10-28 13:53] LABS: Alanine Aminotransferase 43 U/L (0-40); Albumin Level 4.9 g/dL (3.5-5.0); Alkaline Phosphatase 79 U/L (39-117); Aspartate Amino Transferase 91 U/L (5-37); Bilirubin Direct 0.2 mg/dL (0.0-0.5); Bilirubin Total 0.4 mg/dL (0.0-1.0); Blood Urea Nitrogen 18 mg/dL (9-16); Calcium 9.3 mg/dL (8.4-10.2); Creatinine Clr Calc Pharmacy 72.9; Estimated Glomerular Filt Rate > 60; Glucose Random 61 mg/dL (60-115); Magnesium 1.8 mg/dL (1.6-2.6); Total Protein 7.8 g/dL (6.5-8.0)
[2021-10-28 14:05] LABS: Anion Gap 27 (12-20); Carbon Dioxide 17 mmol/L (22-29); Chloride 102 mmol/L (96-108); Potassium 3.9 mmol/L (3.3-5.1); Sodium 142 mmol/L (135-145)
[2021-10-28 14:13] VITALS: BP 114/80; PULSE 93; TEMP 36.3; O2SAT 95
[2021-10-28 14:17] LABS: Reflex Lactate? Lactic Acid Added
[2021-10-28] MEDS: levETIRAcetam in NaCl (iso-os) 1,500 MG/100 ML PIGGYBACK 400 MG IV (15:05)
[2021-10-28] MEDS: 0.9 % Sodium Chloride 1,000 ML 999 ML IVCONT (15:07)
[2021-10-28 15:20] LABS: ~Lactic Acid-LAB USE ONLY 3.8 mmol/L (0.5-2.0)
--- NOTE | 2021-10-28 15:28 | PHA.MEDREC ---
Pharmacy Consult ? Medication Reconciliation Pharmacy has completed the medication reconciliation.Pt sedated at time of med rec, best effort made to obtain fill history, [facility], no claim history since then
--- NOTE | 2021-10-28 15:40 | PM.IMHP ---
History of Present Illness Date of Service: 10/28/21 Chief Complaint: seizure 51 years old with past medical history of alcohol abuse, alcohol withdrawal seizure, opiate abuse, gout, anxiety and depression, alcoholic pancreatitis came to the ER for seizure. He has history alcohol withdrawal seizure with hospitalization at [facility] in july for similar presentation. He was found by a bystander who found having seizure, bystander reported took him to his apartment and called EMS. He was initially calm but then became very agitated combative and had to be sedate with B-52 (Benadryl, Haldol 5 mg and 2 mg of Ativan). When I saw her in the ED he was totally sedated and therefore history obtained from chart review and discussion with ED provider. His vital are stable. Review of Systems Review of Systems: Yes Unobtainable due to mental status [facility] Medical History (Updated 10/28/21 @ 16:34 by Cheko Crenshaw MD) Adjustment disorder Alcohol abuse Alcohol withdrawal seizure Anxiety Chronic back pain Depression Drug dependence Gout Schizophrenia Seizure disorder Family History (Updated 10/28/21 @ 16:35 by Cheko Crenshaw MD) Other Cancer Dementia Stroke Social History Alcohol intake: current Alcohol intake frequency: 3 or more drinks per day Alcohol type: hard liquor Patient Tobacco Use Status: Current everyday Tobacco user Smoked in Last 30 Days: Yes Use of substances other than those prescribed or required for medical reasons: No Advance Directives: No Advance Directives Information Provided: No Meds Allergies Allergy/AdvReac Type Severity Reaction Status Date / Time No Known Allergies Allergy Unverified 01/24/20 16:25 [No Known Allergies*] Active Medications: Current Medications Levetiracetam (Keppra) 1,500 mg in 100 mls @ 400 mls/hr IV Q12H [facility] Last Admin: 10/28/21 15:05 Dose: 400 mls/hr Pharmacy Consult (Consult Rx Perform Med Rec) 1 each MISCELLANE ONCE PRN PRN Reason: Consult order Home Medications Medication Instructions Recorded Confirmed Last Taken Type folic acid 1 mg tablet 1 tab PO DAILY 08/11/21 10/28/21 Unknown History hydroxyzine HCl 50 mg tablet 1 - 2 tab PO Q8H PRN Anxiety 08/11/21 10/28/21 Unknown History thiamine HCl (vitamin B1) 100 mg 1 tab PO DAILY 08/11/21 10/28/21 Unknown History tablet buprenorphine 2 mg-naloxone 0.5 mg 1 film buccal DAILY 08/12/21 10/29/21 08/11/21 History sublingual film (Suboxone) clonidine HCl 0.1 mg tablet 1 - 2 tab PO TID 08/12/21 10/28/21 Unknown History nicotine 14 mg/24 hr daily 1 patch topical DAILY 10/28/21 10/28/21 Unknown History transdermal patch Physical Exam Vital Signs and Narrative: Vital Signs: Last Vital Signs Temp 97.4 F 10/28/21 14:13 Pulse 93 10/28/21 14:13 Resp 18 10/28/21 11:30 BP 114/80 10/28/21 14:13 Pulse Ox 95 10/28/21 14:13 O2 Del Method 10/28/21 14:13 O2 Flow Rate 1 10/28/21 14:13 BMI result Body Mass Index 22.7 Const: Other: Constitutional: sedated Mental Status: unable to obtain Eyes: Pupils are equal, round and reactive to light. Ear, Nose and Throat: Oropharynx clear, mucous membranes moist. Ears and nose without deformities. Trachea midline. Respiratory: Clear to auscultation. No wheezing, rales or rhonchi. Cardiovascular: S1 S2 regular. No murmurs, rubs or gallops. Gastrointestinal: Abdomen soft, non-distended. Normal bowel sounds.? Neurologic: Cranial nerves not able to assess, ? Skin: No rashes or lesions.? Musculoskeletal: No cyanosis or clubbing. Psychiatric: not able to assess Results Labs CBC and Chem 7: 10/28/21 12:13 10/28/21 12:13 Labs: Laboratory Results - last 24 hr 10/28/21 10/28/21 10/28/21 12:13 12:13 12:13 MCV 85.8 MCH 29.3 MCHC 34.2 RDW 11.9 Plt Count 234 MPV 8.9 L Immature Gran % (Auto) 0.4 Neut % (Auto) 84.2 H Lymph % (Auto) 10.2 L Cascade % (Auto) 4.5 Eos % (Auto) 0.2 Baso % (Auto) 0.5 Lymph # (Auto) 1.7 Cascade # (Auto) 0.7 Eos # (Auto) 0.0 Baso # (Auto) 0.1 Abs Immat Gran (auto) 0.07 H Absolute Neuts (auto) 13.9 H Absolute Nucleated RBC 0.000 Nucleated RBC % (auto) 0.0 Anion Gap 27 H Estim Creat Clear Calc 72.9 Estimated GFR > 60 Random Glucose 61 D Lactic Acid 7.1 H* Lactic Acid F/U @ 2Hr Calcium 9.3 Magnesium 1.8 Total Bilirubin 0.4 Direct Bilirubin 0.2 AST 91 H ALT 43 H Alkaline Phosphatase 79 Total Protein 7.8 Albumin 4.9 Ethyl Alcohol COVID-19 ([facility]) COVID-19 Clin Com 10/28/21 10/28/21 10/28/21 12:13 12:13 14:53 MCV MCH MCHC RDW Plt Count MPV Immature Gran % (Auto) Neut % (Auto) Lymph % (Auto) Cascade % (Auto) Eos % (Auto) Baso % (Auto) Lymph # (Auto) Cascade # (Auto) Eos # (Auto) Baso # (Auto) Abs Immat Gran (auto) Absolute Neuts (auto) Absolute Nucleated RBC Nucleated RBC % (auto) Anion Gap Estim Creat Clear Calc Estimated GFR Random Glucose Lactic Acid Lactic Acid F/U @ 2Hr 3.8 H* Calcium Magnesium Total Bilirubin Direct Bilirubin AST ALT Alkaline Phosphatase Total Protein Albumin Ethyl Alcohol 207 COVID-19 ([facility]) Negative COVID-19 Clin Com See Note Imaging Radiologist's Impressions: Impressions Head CT 10/28/21 14:33 IMPRESSION: No acute intracranial process seen. Chronic bilateral frontal and anterior ethmoid sinus inflammatory changes. Assessment and Plan (1) Seizure: Status: Acute (2) Alcohol abuse: Status: Acute (3) Depression: Status: Acute (4) Anxiety: Status: Acute Plan 51 year old male with alcohol use desorder, history of alcohol withdrawal seizure, substance abuse.. here with seizure likely alcohol withdrawal seizure with post ictal agiation Plan: Seizure/ aspiration precaution, Ativan PRN for seizure, Phenobarbital for alcohol withdrawal once awake, sitter consult for report he may have made so SI comments. Lactic acidosis Quality Stroke Does the patient have a stroke diagnosis?: No VTE Prior VTE?: No VTE Risk Level:: Medical - low VTE Device Contraindication: N/A - Device Ordered VTE Drug Contraindication: Treatment Not Indicated
[2021-10-28 16:56] LABS: Reflex Lactate? 2 Y
[2021-10-28 18:01] LABS: ~Lactic Acid-LAB USE ONLY 2.8 mmol/L (0.5-2.0)
--- NOTE | 2021-10-28 18:29 | PC.NURSE ---
pt resting comfortably with constant jig box operator in place. Will continue to monitor.
--- NOTE | 2021-10-28 18:36 | PC.NURSE ---
pt being admitted for neurological changes for unknown downtime for seizure he had this morning
[2021-10-28] MEDS: Dextrose 5 % and 0.45 % NaCl 1,000 ML 100 ML IVCONT (20:47)
[2021-10-28 20:53] VITALS: BP 130/69; PULSE 89; RESP 18; O2SAT 97
[2021-10-29] MEDS: levETIRAcetam in NaCl (iso-os) 1,500 MG/100 ML PIGGYBACK 400 MG IV ×2 (03:13→14:54)
[2021-10-29 05:18] LABS: Appearance Urine CLEAR; Color Urine YELLOW; Glucose Urine UA NEG (NEG); Leukocyte Esterase Urine NEG (NEG); Nitrite Urine NEG (NEG); PH 5.5 (5.0-8.0); Specific Gravity - Urine >= 1.030 (1.005-1.025); Urine Blood NEG (NEG); Urine Ketones >=80 MG/DL (NEG); Urine Protein NEG (NEG-TRACE)
[2021-10-29 05:32] LABS: Amphetamine Screen Urine Not Detected (Not Detect); Barbiturates, Urine Not Detected (Not Detect); Benzodiazepines Screen Urine Not Detected (Not Detect); Cannabinoid Screen Urine Not Detected (Not Detect); Cocaine Screen Urine POSITIVE (Not Detect); Fentanyl, urine POSITIVE (Not Detect); Opiate Screen Urine Not Detected (Not Detect); Phencyclidine Screen Urine POSITIVE (Not Detect)
[2021-10-29 07:03] VITALS: BP 114/73; PULSE 61; RESP 10; TEMP 37.2; O2SAT 94
[2021-10-29] MEDS: Dextrose 5 % and 0.45 % NaCl 1,000 ML 100 ML IVCONT ×3 (07:43→18:27)
[2021-10-29] MEDS: Folic Acid 1 MG TABLET PO (08:07)
[2021-10-29] MEDS: cloNIDine HCL 0.1 MG TABLET PO ×3 (08:07→21:04)
[2021-10-29] MEDS: Thiamine HCL 100 MG TABLET PO (08:07)
[2021-10-29] MEDS: Buprenorphine/Naloxone 2/0.5mg FILM 1 FILM SUBLINGUAL (09:44)
[2021-10-29 11:40] VITALS: BP 114/57; PULSE 55; RESP 10; TEMP 36.6; O2SAT 92
--- NOTE | 2021-10-29 12:14 | PC.NURSE ---
pt is sleeping, sitter at bedside, marketing business analyst intact, vss, ivf running per order, no seizure activity noted, continue to monitor.
--- NOTE | 2021-10-29 12:46 | P.PNIM_ITS ---
Subjective Subjective Date of Service: 10/29/21 Interval History: f/u on alcohol withdrawal seizure interval history: no further seizure, no signs of withdrawal and denying si Review of Systems no seizure, noSI Physical Exam Vital Signs: Vital Signs: Last Vital Signs Temp 97.8 F 10/29/21 11:40 Pulse 55 10/29/21 11:40 Resp 10 L 10/29/21 11:40 BP 114/57 L 10/29/21 11:40 Pulse Ox 92 10/29/21 11:40 O2 Del Method 10/29/21 11:40 O2 Flow Rate 1 10/29/21 11:40 BMI result Body Mass Index 22.7 Const: Other: General: AO X 3, no acute distress Resp: CTA bilateral CVS: S1,S2,RRR GI: +BS, NT, no distention Skin: No rash Neuro: motor grossly intact Psych: appropriate affect Objective Data Active Medications Acetaminophen (Acetaminophen 325 Mg Tablet) 650 mg PO Q6H PRN PRN Reason: Pain, Mild (Pain Scale 1-3) Buprenorphine/Naloxone (Buprenorphine/Naloxone 2/0.5mg Film) 1 film SUBLINGUAL DAILY [facility] Last Admin: 10/29/21 09:44 Dose: 1 film Documented By: SAMIRA Clonidine HCl (Clonidine Hcl 0.1 Mg Tablet) 0.1 mg PO TID [facility]; Protocol Last Admin: 10/29/21 08:07 Dose: 0.1 mg Documented By: SAMIRA Folic Acid (Folic Acid 1 Mg Tablet) 1 mg PO DAILY [facility] Last Admin: 10/29/21 08:07 Dose: 1 mg Documented By: SAMIRA Hydroxyzine HCl (Hydroxyzine Hcl 50 Mg Tablet) 50 mg PO Q8H PRN PRN Reason: Anxiety Levetiracetam (Keppra) 1,500 mg in 100 mls @ 400 mls/hr IV Q12H [facility] Last Infusion: 10/29/21 03:47 Dose: 0 mls/hr Documented By: ALVERTO Dextrose/Sodium Chloride (D51/2ns) 1,000 mls @ 100 mls/hr IVCONT .Q10H [facility] Last Admin: 10/29/21 11:59 Dose: 100 mls/hr Documented By: MONTY Melatonin (Melatonin 3 Mg Tablet) 6 mg PO BEDTIME PRN PRN Reason: Insomnia Nicotine (Nicotine 14 Mg Patch.Td24) 14 mg TRANSDERMA DAILY [facility] Last Admin: 10/29/21 08:07 Dose: Not Given Documented By: SAMIRA Non-Admin Reason: Patient Refused Ondansetron HCl (Ondansetron Hcl 4 Mg/2 Ml Vial) 4 mg IVPUSH Q8H PRN PRN Reason: Nausea and Vomiting Pharmacy Consult (Consult Rx Perform Med Rec) 1 each MISCELLANE ONCE PRN PRN Reason: Consult order Sodium Chloride (0.9 % Sodium Chloride Flush 3 Ml Syringe) 3 ml IVFLUSH QSHIFT [facility] Last Admin: 10/29/21 07:06 Dose: Not Given Documented By: SAMIRA Non-Admin Reason: IV Running Thiamine HCl (Thiamine Hcl 100 Mg Tablet) 100 mg PO DAILY [facility] Last Admin: 10/29/21 08:07 Dose: 100 mg Documented By: SAMIRA Labs CBC & Chem 7: 10/28/21 12:13 10/28/21 12:13 Labs: Laboratory Results - last 24 hr 10/28/21 10/28/21 10/28/21 12:13 12:13 14:53 Anion Gap 27 H Estim Creat Clear Calc 72.9 Estimated GFR > 60 Random Glucose 61 D Lactic Acid 7.1 H* Lactic Acid F/U @ 2Hr 3.8 H* Lactic Acid F/U @ 4Hr Calcium 9.3 Magnesium 1.8 Total Bilirubin 0.4 Direct Bilirubin 0.2 AST 91 H ALT 43 H Alkaline Phosphatase 79 Total Protein 7.8 Albumin 4.9 Urine Color Urine Appearance Urine pH Ur Specific [place] Urine Protein Urine Glucose (UA) Urine Ketones Urine Blood Urine Nitrite Ur Leukocyte Esterase Urine Opiates Screen Urine Fentanyl Screen Ur Barbiturates Screen Ur Phencyclidine Scrn Ur Amphetamines Screen U Benzodiazepines Scrn Urine Cocaine Screen U Marijuana (THC) Screen 10/28/21 10/29/21 10/29/21 17:35 05:12 05:12 Anion Gap Estim Creat Clear Calc Estimated GFR Random Glucose Lactic Acid Lactic Acid F/U @ 2Hr Lactic Acid F/U @ 4Hr 2.8 H* Calcium Magnesium Total Bilirubin Direct Bilirubin AST ALT Alkaline Phosphatase Total Protein Albumin Urine Color YELLOW Urine Appearance CLEAR Urine pH 5.5 Ur Specific [place] >= 1.030 H Urine Protein NEG Urine Glucose (UA) NEG Urine Ketones >=80 Urine Blood NEG Urine Nitrite NEG Ur Leukocyte Esterase NEG Urine Opiates Screen Not Detected Urine Fentanyl Screen POSITIVE H Ur Barbiturates Screen Not Detected Ur Phencyclidine Scrn POSITIVE H Ur Amphetamines Screen Not Detected U Benzodiazepines Scrn Not Detected Urine Cocaine Screen POSITIVE H U Marijuana (THC) Screen Not Detected Assessment and Plan (1) Seizure: Status: Acute (2) Alcohol abuse: Status: Acute (3) Depression: Status: Acute (4) Anxiety: Status: Acute Plan 1/Alcohol withdrawal seizure--this is not his first time, started on Keppra in ED, check with neuro if still needs this 2/Alcohol dependence/alcohol withdrawal--no sings of withdrawal, Phenobarbital 3/opioid dependence--Suboxone 4/? SI--BHN/Crisis eval Quality Stroke Does the patient have a stroke diagnosis?: No VTE Prior VTE?: No VTE Risk Level:: Medical - low VTE Device Contraindication: N/A - Device Ordered VTE Drug Contraindication: Treatment Not Indicated
[2021-10-29 15:14] VITALS: BP 119/59; PULSE 49; RESP 11; TEMP 36.7; O2SAT 96
--- NOTE | 2021-10-29 16:25 | P.CNNE_ITS ---
History of Present Illness Data of Consult Service Date: 10/29/21 Primary Care Provider: Unknown Physician HPI Reason for consult: Seizure disorder 51 years old man with underlying history of alcohol abuse and seizure disorder was brought to hospital after a bystander found him apparently seizing. He did not know much detail. He said that he was not drinking and only had taken couple of naps. His tox screen was positive for cocaine and phencyclidine. Review of Systems Review of Systems: No recent cold or flu-like illness PMFSH Past Medical History Medical History (Updated 10/28/21 @ 16:34 by Cheko Crenshaw MD) Adjustment disorder Alcohol abuse Alcohol withdrawal seizure Anxiety Chronic back pain Depression Drug dependence Gout Schizophrenia Seizure disorder Family History Family History (Updated 10/28/21 @ 16:35 by Cheko Crenshaw MD) Other Cancer Dementia Stroke Social History Social History Alcohol intake: current Alcohol intake frequency: 3 or more drinks per day Alcohol type: hard liquor Patient Tobacco Use Status: Current everyday Tobacco user Smoked in Last 30 Days: Yes Use of substances other than those prescribed or required for medical reasons: No Advance Directives: No Advance Directives Information Provided: No Meds Allergies Allergy/AdvReac Type Severity Reaction Status Date / Time No Known Allergies Allergy Unverified 01/24/20 16:25 [No Known Allergies*] Active Medications: Current Medications Acetaminophen (Acetaminophen 325 Mg Tablet) 650 mg PO Q6H PRN PRN Reason: Pain, Mild (Pain Scale 1-3) Buprenorphine/Naloxone (Buprenorphine/Naloxone 2/0.5mg Film) 1 film SUBLINGUAL DAILY [facility] Last Admin: 10/29/21 09:44 Dose: 1 film Clonidine HCl (Clonidine Hcl 0.1 Mg Tablet) 0.1 mg PO TID [facility]; Protocol Last Admin: 10/29/21 14:53 Dose: 0.1 mg Folic Acid (Folic Acid 1 Mg Tablet) 1 mg PO DAILY [facility] Last Admin: 10/29/21 08:07 Dose: 1 mg Hydroxyzine HCl (Hydroxyzine Hcl 50 Mg Tablet) 50 mg PO Q8H PRN PRN Reason: Anxiety Levetiracetam (Keppra) 1,500 mg in 100 mls @ 400 mls/hr IV Q12H [facility] Last Infusion: 10/29/21 16:20 Dose: Infused Dextrose/Sodium Chloride (D51/2ns) 1,000 mls @ 100 mls/hr IVCONT .Q10H [facility] Last Admin: 10/29/21 11:59 Dose: 100 mls/hr Melatonin (Melatonin 3 Mg Tablet) 6 mg PO BEDTIME PRN PRN Reason: Insomnia Nicotine (Nicotine 14 Mg Patch.Td24) 14 mg TRANSDERMA DAILY [facility] Last Admin: 10/29/21 08:07 Dose: Not Given Ondansetron HCl (Ondansetron Hcl 4 Mg/2 Ml Vial) 4 mg IVPUSH Q8H PRN PRN Reason: Nausea and Vomiting Pharmacy Consult (Consult Rx Perform Med Rec) 1 each MISCELLANE ONCE PRN PRN Reason: Consult order Sodium Chloride (0.9 % Sodium Chloride Flush 3 Ml Syringe) 3 ml IVFLUSH QSHIFT [facility] Last Admin: 10/29/21 16:21 Dose: Not Given Thiamine HCl (Thiamine Hcl 100 Mg Tablet) 100 mg PO DAILY [facility] Last Admin: 10/29/21 08:07 Dose: 100 mg Home Medications Medication Instructions Recorded Confirmed Last Taken Type folic acid 1 mg tablet 1 tab PO DAILY 08/11/21 10/28/21 Unknown History hydroxyzine HCl 50 mg tablet 1 - 2 tab PO Q8H PRN Anxiety 08/11/21 10/28/21 Unknown History thiamine HCl (vitamin B1) 100 mg 1 tab PO DAILY 08/11/21 10/28/21 Unknown History tablet buprenorphine 2 mg-naloxone 0.5 mg 1 film buccal DAILY 08/12/21 10/29/21 08/11/21 History sublingual film (Suboxone) clonidine HCl 0.1 mg tablet 1 - 2 tab PO TID 08/12/21 10/28/21 Unknown History nicotine 14 mg/24 hr daily 1 patch topical DAILY 10/28/21 10/28/21 Unknown History transdermal patch Physical Exam Vital Signs: Vital Signs: Last Vital Signs Temp 98.0 F 10/29/21 15:14 Pulse 49 L 10/29/21 15:14 Resp 11 L 10/29/21 15:14 BP 119/59 L 10/29/21 15:14 Pulse Ox 96 10/29/21 15:14 O2 Del Method 10/29/21 15:14 O2 Flow Rate 1 10/29/21 15:14 BMI result Body Mass Index 22.7 Neuro: Other: Alert and awake with normal spontaneity of speech fluency and comprehension and flat affect. Face was symmetrical. There was mild [id number] ataxia. Visual hastings are full. Deep tendon reflexes were absent with flexor plantars. Speech was normal Results Labs CBC & Chem 7: 10/28/21 12:13 10/28/21 12:13 Labs: Urine 10/29/21 Range/Units 05:12 Urine Color YELLOW Urine Appearance CLEAR Urine pH 5.5 (5.0-8.0) Ur Specific [place] >= 1.030 H (1.005-1.025) Urine Protein NEG (NEG-TRACE) MG/DL Urine Glucose (UA) NEG (NEG) MG/DL Noncontrast head CT revealed mild cerebellar atrophy. Assessment and Plan (1) Seizure: Status: Acute Probably seizure disorder either caused by or triggered by alcohol and drug of abuse. With positive tox screen for cocaine, it is difficult to start him on any anti epileptic as cocaine might have been the reason for seizure. If not done before, a routine EEG is recommended to rule out any epileptic tendency. Otherwise mainstay of management is drug rehab vitamins and appropriate nutrition. He should be advised not to drive and not be involved in any activity that could put his life in danger. Procedures Date of Service Date of Service: 10/29/21
--- NOTE | 2021-10-29 17:35 | PC.NURSE ---
Resumed patient care at 1500- Patient resting comfortably, easily arousable. No seizure activity noted. Sinus emilia on monitor. Remaining vitals WNL. IVF running per order. Patient has no complaints at this time.
--- NOTE | 2021-10-29 19:26 | PC.NURSE ---
Addendum entered by Leonora Floyd 10/30/21 06:49: Report given to CHRIS Crooks Addendum entered by Leonora Floyd 10/30/21 05:34: spoke to nurse discharge planner at 2100 regarding sitter status, unable to find sitter coverage after 2300 spoke to nursing railroad supervisor of engines around 0000 regarding sitter status, per nursing railroad supervisor of engines pt will remain with no sitter due to no staff Addendum entered by Leonora Floyd 10/29/21 19:46: pt resting in bed. on continuous cardiac monitoring. sleeping. breathing equally unlabored. no signs of acute distress notice Original Note: report received from CHRIS Hernandez
[2021-10-29 19:40] VITALS: BP 94/51; PULSE 57; RESP 13; TEMP 36.8; O2SAT 93
[2021-10-29] MEDS: hydrOXYzine HCL 50 MG TABLET PO (21:04)
[2021-10-30] MEDS: levETIRAcetam in NaCl (iso-os) 1,500 MG/100 ML PIGGYBACK 400 MG IV (01:03)
--- NOTE | 2021-10-30 05:48 | PC.NURSE ---
This RN alerted by primary RN that pt is SI without a sitter. This RN contacting the nursing city dispatch supervisor, per sup, pt has been denying SI/HI in most recent hospitalists note therefore no need for a sitter @ this time. Primary RN aware.
[2021-10-30 06:05] VITALS: BP 100/54; PULSE 50; RESP 12; TEMP 36.4; O2SAT 96
[2021-10-30 08:00] VITALS: BP 141/77; PULSE 56; RESP 18; TEMP 36.8; O2SAT 98
[2021-10-30] MEDS: Folic Acid 1 MG TABLET PO (09:03)
[2021-10-30] MEDS: Thiamine HCL 100 MG TABLET PO (09:03)
[2021-10-30] MEDS: cloNIDine HCL 0.1 MG TABLET PO ×2 (09:03→14:51)
[2021-10-30] MEDS: Buprenorphine/Naloxone 2/0.5mg FILM 1 FILM SUBLINGUAL (09:04)
[2021-10-30] MEDS: 0.9 % Sodium Chloride Flush 3 ML SYRINGE IVFLUSH (09:04)
[2021-10-30] MEDS: Dextrose 5 % and 0.45 % NaCl 1,000 ML 100 ML IVCONT (09:23)
--- NOTE | 2021-10-30 11:04 | PM.DS ---
DS: Providers Provider Date of Service: 10/30/21 Date of admission: 10/28/21 16:42 Primary care physician: Unknown Physician Consults: 10/29/21 12:51 BHN [Consult to Crisis] Stat Reason for consultation: SI, medically ready Has provider been notified: No 10/29/21 12:52 Consult to Neurology Routine Consulting Provider: [facility] [facility] Reason for consultation: seizures Has provider been notified: No DS: Diagnosis Discharge Diagnosis (1) Seizure: Status: Acute DS: Summary Hospital Course Hospital Course: Chief Complaint: seizure 51 years old? with past medical history of alcohol abuse, alcohol withdrawal seizure, opiate abuse, gout, anxiety and depression, alcoholic pancreatitis came to the ER for? seizure.? He has history alcohol withdrawal seizure with [place] [facility] [place] for similar presentation.? He was found by a bystander who found having seizure, bystander reported took him to his apartment and called EMS. He was initially calm but then became very agitated combative and had to be sedate with B-52 (Benadryl, Haldol 5 mg and 2 mg of Ativan). When I saw her in the ED he was totally sedated and therefore history obtained from chart review and discussion with ED provider. His vital are stable. hospital course: he was observed in the hospital without further episode of seizure or alcohol withdrawal, was seen by Neuro and recommended EEG if not done before... he has had EEG before. Crisis has seen and cleared him, he denies suicidal ideation Time Spent with Patient Time attestation: Total time spent providing and/or coordinating discharge services: Discharge coordination time: Greater than 30 minutes Quality: Safe Use of Opioids Does Pt have an Active Cancer Diagnosis on the Problem List?: No Quality: Stroke Does the patient have a stroke diagnosis?: No Physical Exam Vital Signs: Vital Signs: Last Vital Signs Temp 98.2 F 10/30/21 08:00 Pulse 56 10/30/21 08:00 Resp 18 10/30/21 08:00 BP 141/77 H 10/30/21 08:00 Pulse Ox 98 10/30/21 08:00 O2 Del Method 10/30/21 08:00 O2 Flow Rate 1 10/30/21 06:05 BMI result Body Mass Index 22.7 Discharge Plan Discharge Anticipated Discharge Date/Time: 10/30/21 10:24 Patient Disposition: Home, Self-Care Discharge Diagnosis: Alcohol withdrawal Seizure Referrals: Physician,Unknown J [Primary Care Provider] - 1 Week Discharge Medications: Continued thiamine HCl (vitamin B1) 100 mg tablet 1 tab PO DAILY hydroxyzine HCl 50 mg tablet 1 - 2 tab PO Q8H PRN (Reason: Anxiety) folic acid 1 mg tablet 1 tab PO DAILY clonidine HCl 0.1 mg tablet 1 - 2 tab PO TID buprenorphine-naloxone [Suboxone] 2-0.5 mg Film 1 film [facility]CCAL DAILY Label Comments: pt reports he takes 1 film daily Rx Instructions: place 1 strip/tab under (each) side of tongue nicotine 14 mg/24 hr patch 24 hour 1 patch topical DAILY Diet: advance to usual diet Activity on Discharge: As tolerated Stand Alone Forms: Patient Portal Discharge page Care Plan Goals: Prevent rehospitalization for seizure Health Concerns: alcohol dependency, drug Plan of Treatment: Stay away from alcohol, NO Driving for at least 6 months without having seizures Assessment: as above
[2021-10-30 11:10] LABS: Glucose, Whole Blood 113 mg/dL (60-115)
[2021-10-30 11:26] VITALS: BP 124/66; PULSE 55; RESP 18; TEMP 36.8; O2SAT 96
--- NOTE | 2021-10-30 12:46 | MHC.RECOVRN ---
1130- Met with pt in 483 along with NGUYEN Dias, to discuss substance use and discharge planning. Pt reports having recently been at [facility] for a short while when a reoccurrence with alcohol occurred. Pt was transitioned to the [facility] to stabilize. Pt reports staying 20+ days and then decided to discharge. 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 Pt is looking to re-enter into treatment. Pts first choice is returning to [facility], second choice would be [facility], and third choice would be the [facility]. Pt informed [facility] would likely not be an option due to recent alcohol use. 1215-Returned to inform pt that due to recent alcohol use, [facility] can not accept back at this time, however, would be able to go to the [facility] early next week. [facility] does not have availability. When asked if pt would like to return to the [facility], pt states It's either that or a .22. Pt asked if he felt like he was going to hurt himself, pt stated No, I just want to get out of here. Pt willing to be discharged to a jail to await bed at the [facility]. T/w will send referral to [facility]. Discussed with Clinical Tobacco Warehouse Manager Nieves Hightower.
--- NOTE | 2021-10-30 12:59 | MHC.CARE ---
Late Entry- CARE Team met with Pt who presented to [facility] ED with alcohol intoxication and subsequently medically admitted. Pt was referred to CARE Team due to an inconsistent report if Pt made an SI statement. Pt is now medically cleared alert and orientated x4. Pt denies current SI/HI/AH/VH. Pt denies history of SA or gestures. Pt reports he was at sober living, relapsed then [facility] prior to completion due to not liking it there and had a subsequent relapse resulting in his medical admission. Pt reports he has a therapist thorough CHD and no psych meds. PT reports on suboxone for pain management. Pt interested in speaking with the recovery support team. Dr. Den mcclellan. Pt provided with [facility] Crisis information.
--- NOTE | 2021-10-30 14:26 | MHC.CM.PN ---
Male 51 DX Seizure Patient is presently Homeless. He had been at the [facility], recently discharged. He relapsed, ETOH, and was found actively seizing. He has been seen by N and Recovery team. DP return to [facility] next week. [facility]ci until [facility] admit. He will arrange for transport at discharge.
--- NOTE | 2021-10-30 14:39 | MHC.RECOVRN ---
If discharged to the Living Room, please notify Ann Jason at [phone]. Ann will notify and attempt to facilitate pts admission to the [facility] over the weekend.
[2021-10-30 15:06] VITALS: BP 102/45; PULSE 49; RESP 18; TEMP 36.2; O2SAT 98
--- NOTE | 2021-10-30 15:40 | MHC.RECOVRN ---
Pt discharging to the Living Room, [address] [place] [address] in [place], to await a bed at the [facility]. Ann Bakerg from [facility] notified. CM to arrange cab for transport.
[2021-10-30 16:01] LABS: Glucose, Whole Blood 107 mg/dL (60-115)
== END 2021-10-30 16:59 | disposition home or self-care (01) | DRG 773 ==
LOC: HO.ED 15:01 → HO.EDOVER 16:57 → HO.IMC 10-30 06:48
PROVIDERS: Admitting Provider Internal Medicine; Emergency Provider Emergency Medicine; Visit Provider Internal Medicine
DX: F10.139 Alcohol abuse with withdrawal, unspecified (principal); F11.20 Opioid dependence, uncomplicated; R56.9 Unspecified convulsions; F17.210 Nicotine dependence, cigarettes, uncomplicated; F41.9 Anxiety disorder, unspecified; F32.A Depression, unspecified; Z71.6 Tobacco abuse counseling; Z79.899 Other long term (current) drug therapy
CPT/HCPCS: 36415; 70450; 80048; 80076; 80307; 81003; 82077; 82947; 83605; 83735; 85025; 87635; 93005; 96361; 96372; 96374; 99285; J1200; J1953; J2060

== ENCOUNTER 2023-12-28 17:11 | Inpatient (IN) | payer MEDICAID, SELFPAY ==
--- NOTE | ~2023-12-28 | US_ITS ---
Ultrasound-guided aspiration of left rectus sheath fluid collection Indication: Left rectus sheath fluid collection Procedure: Informed consent was obtained from the patient prior to the procedure. During this process, the procedure and potential alternatives were explained, along with the intended outcome and benefits. The risks of the procedure, as well as the risks of not doing the procedure, were discussed. The patient was given the opportunity to ask questions regarding the procedure and appeared competent to make medical decisions. A signed consent form which documents this discussion was placed in the medical record. A timeout was performed in the room. The abdomen was prepped and draped in routine sterile fashion. 1% lidocaine was used as anesthetic. Under real-time ultrasound guidance, a 25-gauge needle was advanced into the left rectus sheath fluid collection. A total of 3cc of dark nonclotting blood tinged fluid was aspirated and sent for culture. The patient tolerated the procedure well with no immediate complications. A dry dressing was applied. Permanent ultrasound images were archived to the procedure. US/US guided fine needle asp Impression: Ultrasound-guided aspiration of left rectus sheath fluid collection. This procedure was performed by Jake Fowler PA-C, and directly supervised by Dr. Mariano Electronically signed by: Jovany Mariano MD 01/12/2024 12:30 PM EDT
--- NOTE | ~2023-12-28 | CT_ITS ---
EXAMINATION: CT ABDOMEN AND PELVIS WITH CONTRAST CLINICAL INFORMATION: Abdominal pain, overdose COMPARISON: None available. TECHNIQUE: Multidetector volumetric images were obtained from the superior aspect of the liver through the pubic symphysis following administration 85 mL of Omnipaque 350 intravenous contrast. Sagittal and coronal reformatted images were obtained on the technologist's workstation. Oral contrast: No This CT examination was performed using dose optimization techniques as appropriate, variously including the following: *Automated exposure control *Adjustment of mA and/or kV according to patient size (this includes techniques or standardized protocols for targeted exams where dose is matched to indication/reason for exam; i.e. extremities or head) *Use of iterative reconstruction technique DLP: 809 mGy-cm FINDINGS: LUNG BASES: Patchy opacities in lung bases favoring atelectasis versus aspiration. LIVER, GALLBLADDER, AND BILIARY TREE: Diffuse hepatic steatosis. No focal hepatic lesions. No intrahepatic biliary ductal dilatation. The gallbladder is unremarkable with no evidence of radiopaque gallstones, gallbladder wall thickening, or obvious pericholecystic inflammatory changes. PANCREAS: Unremarkable. SPLEEN: Unremarkable. ADRENAL GLANDS: Unremarkable. KIDNEYS AND URETERS: The kidneys are normal in size, shape, and attenuation. No hydronephrosis, hydroureter, or calculi seen. No perinephric stranding. BLADDER: There is a punctate focus of nondependent gas in the bladder, correlate with truncation, and urinalysis. GASTROINTESTINAL TRACT: The small and large bowel are unremarkable. The appendix is unremarkable. ABDOMINAL WALL: There is asymmetric enlargement of the left rectus muscle with an ill-defined low-attenuation collection within the left rectus muscle measuring approximately 3.3 x 1.9 x 3.0 cm. LYMPH NODES: Normal. VASCULAR: Unremarkable. PELVIC VISCERA: Unremarkable. OSSEOUS STRUCTURES: Unremarkable. CT/CT abdomen pelvis w IV con IMPRESSION: 1. There is asymmetric enlargement of the left rectus muscle with an ill-defined low-attenuation collection within the muscle measuring approximately 3.3 x 1.9 x 3.0 cm. This may represent an intramuscular hematoma versus infectious process, correlate clinically. 2. Punctate focus of nondependent gas in the bladder, correlate with truncation, and urinalysis. 3. Patchy opacities in the lung bases favoring atelectasis versus aspiration. 4. Hepatic steatosis. Fleischner guidelines were followed. Electronically signed by: Zane Cano MD 12/29/2023 01:16 AM EDT RP
[2023-12-28 06:00] VITALS: BMI 17.2
[2023-12-28 17:18] VITALS: BP 117/68; PULSE 70; RESP 22; TEMP 36.6; O2SAT 96; BMI 17.2
--- NOTE | 2023-12-28 17:20 | ECG_ITS ---
Test Reason : OVERDOSE Blood Pressure : / mmHG Vent. Rate : 066 BPM Atrial Rate : 066 BPM P-R Int : 164 ms QRS Dur : 094 ms QT Int : 436 ms P-R-T Axes : 062 043 053 degrees QTc Int : 457 ms Sinus rhythm with marked sinus arrhythmia Otherwise normal ECG When compared with ECG of 28-OCT-2021 11:42, Vent. rate has decreased BY 38 BPM Nonspecific T wave abnormality no longer evident in Inferior leads T wave amplitude has increased in Anterolateral leads QT has shortened Referred By: Isis Tran Electronically Signed By:ROMULO TINAJERO
--- NOTE | 2023-12-28 17:24 | ED.GENADULT ---
HPI - General Adult General Chief complaint: Overdose Stated complaint: sect. 12, SI, took 40 clonidine Time Seen by Provider: 12/28/23 17:13 Source: EMS Mode of arrival: EMS Limitations: altered mental status History of Present Illness ED Provider: Dr. Isis Tran HPI narrative: patient comes to the emergency room via EMS. According to EMS, patient was talking to his therapist over the phone, patient told his therapist that he took 40 tablets of clonidine 0.1mg, then patient went unresponsive while he was still in the phone with his therapist. The patient's therapist called 911. On arrival, patient was unresponsive but woke up with a sternal rub. Seems that patient took clonidine and whiskey. patient came in on a Section 12. According to EMS, patient's blood pressure was in the mid 80s. On arrival, 117/68. Patient wakes up the sternal rub, tries to talk, not making much sense. Patient under the influence of alcohol versus drugs Related Data Home Medications ?Medication ?Instructions ?Recorded ?Confirmed folic acid 1 mg tablet 1 tab PO DAILY 08/11/21 10/28/21 hydroxyzine HCl 50 mg tablet 1 - 2 tab PO Q8H PRN Anxiety 08/11/21 10/28/21 thiamine HCl (vitamin B1) 100 mg 1 tab PO DAILY 08/11/21 10/28/21 tablet buprenorphine 2 mg-naloxone 0.5 mg 1 film buccal DAILY 08/12/21 10/29/21 sublingual film (Suboxone) clonidine HCl 0.1 mg tablet 1 - 2 tab PO TID 08/12/21 10/28/21 nicotine 14 mg/24 hr daily 1 patch topical DAILY 10/28/21 10/28/21 transdermal patch Allergies Allergy/AdvReac Type Severity Reaction Status Date / Time No Known Allergies Allergy Verified 12/28/23 17:20 [No Known Allergies*] Review of Systems Review of Systems: Yes Unobtainable due to mental condition PMFSH Past Medical History Medical History Chronic back pain Drug dependence Depression Gout Alcohol withdrawal seizure Anxiety Alcohol abuse Seizure disorder Adjustment disorder Schizophrenia Alcohol abuse Depression Anxiety Family History Family History (Updated 10/28/21 @ 16:35 by Cheko Crenshaw MD) Other Cancer Dementia Stroke Social History Social History Household Members: None Housing: Homeless Do you presently have visiting nurse or other home services: No Alcohol intake: current Alcohol intake frequency: 3 or more drinks per day Alcohol type: hard liquor Patient Tobacco Use Status: Current everyday Tobacco user Tobacco use type: Cigarette Cigarette Packs Per Day: 0.5 Cigarettes Per Day: 10.0 Second Hand Smoke Exposure: No Advance Directives: No Advance Directives Information Provided: No Do you have a plan to hurt others: No Plan service: No Current occupational status: other Physical Exam ED Vital Signs: Vital Signs - 24 hr 12/28/23 17:18 12/28/23 18:38 12/28/23 20:15 Temperature 98 F Pulse Rate 70 53 51 Respiratory Rate 22 H 18 18 Blood Pressure 117/68 93/53 L 81/48 L Pulse Oximetry 96 100 96 Oxygen Delivery Method Room Air Oxymizer Oxymizer Oxygen Flow Rate 2 2 12/28/23 22:18 12/28/23 23:24 Temperature 94.8 F L Pulse Rate 53 47 L Respiratory Rate 14 11 L Blood Pressure 97/59 L 74/44 L Pulse Oximetry 99 98 Oxygen Delivery Method Oxymizer Nasal Cannula Oxygen Flow Rate 2 2 BMI result Body Mass Index 17.2 Const Other: Appearance: somnolent, arousable to sternal rub, intoxicated versus under the influence of drugs Eyes: pinpoint pupils bilaterally, Pupils equal, round and reactive to light. ENT: Pharynx normal. Neck: Normal inspection. Neck supple. No lymph nodes noted. No crepitus CVS: Normal heart rate and rhythm. Pulses normal. Normal S1 and S2 Respiratory: No respiratory distress. Breath sounds normal. No Wheezing. No rales Abdomen: Soft and nontender. No rigidity. No distention. Skin: Skin warm and dry. Normal skin color. Normal skin turgor. Extremities: No lower extremity edema. No Lacerations. No Rash Neuro: moving all extremities, intoxicated Psych: calm, intoxicated Course Course Course Narrative: - all of patient's labs pending - poison control has been contacted Medications Administered Discontinued Medications Generic Name Dose Route Start Last Admin Trade Name Freq PRN Reason Stop Dose Admin Sodium Chloride 1,000 mls @ 999 mls/hr 12/28/23 17:20 12/28/23 19:03 Ns IVCONT 12/28/23 18:20 Infused .Q1H1M ONE Infusion Sodium Chloride 1,000 mls @ 999 mls/hr 12/28/23 20:08 12/28/23 20:11 Ns IVCONT 12/28/23 21:08 999 mls/hr .Q1H1M ONE Administration Sodium Chloride 1,000 mls @ 999 mls/hr 12/28/23 21:14 12/28/23 21:38 Ns IVCONT 12/28/23 22:14 999 mls/hr .Q1H1M ONE Administration Medical Decision Making Medical Decision Making [facility] Narrative: - my interpretation of EKG: Sinus rhythm with marked arrhythmia, heart rate 66, no ST segment depression or elevation, no T-wave inversion, QTC 457 - poison control was contacted: Recommendations, EKG checks for QTC and also check for hypotension - my interpretation of labs: Hematology and chemistry at baseline. Patient's lipase a bit elevated, 294. No previous lipase levels for comparison. Patient has no abdominal pain. Discussed with our ICU PA, we will go ahead and order a CT scan. - patient has been relatively stable with a blood pressure in the low 90s. Patient has had a total of 3 L normal saline. However, patient's blood pressure is starting to tank. Patient's blood pressure in the high 60s/low 70s despite being on the 4 L of normal saline. Levophed has been started. This is not sepsis, this is a side effect of the medication overdose. - I discussed the patient with Dr. Reilly, patient being admitted to the ICU Differential Diagnosis Differential Diagnoses: The differential diagnosis associated with the presentation includes ( clonidine overdose, polysubstance abuse, alcohol abuse) Admission/Observation Consideration of admission/observation: Escalation of care including admission/observation considered Consult Healthcare Provider Management of the patient was discussed with: [employer] Lab Data [facility] Lab Attestation statement: I reviewed the patient's lab results. 12/28/23 17:46 12/28/23 17:46 Labs: Lab Results 12/28/23 12/28/23 12/28/23 Range/Units 17:21 17:46 17:51 WBC 4.4 L (4.8-10.8) X10*3/uL RBC 4.02 L (4.60-5.80) X10*6/uL Hgb 13.1 L (14.0-18.0) g/dl Hct 36.8 L (42.0-52.0) % MCV 91.5 (80.0-98.0) fL MCH 32.6 (27.0-33.0) pg MCHC 35.6 (31.0-36.0) g/dl RDW 14.6 (11.0-16.0) % Plt Count 195 (160-400) X10*3/uL MPV 8.6 L (9.4-12.4) fL Immature Gran % (Auto) 0.5 H (0.0-0.4) % Neut % (Auto) 60.9 (45-73) % Lymph % (Auto) 20.2 (20-40) % [place] % (Auto) 13.8 H (2-11) % Eos % (Auto) 3.9 (0-4) % Baso % (Auto) 0.7 (0-2) % Lymph # (Auto) 0.9 L (1.2-4.9) X10*3/uL [place] # (Auto) 0.6 (0.1-1.2) X10*3/uL Eos # (Auto) 0.2 (0.0-0.4) X10*3/uL Baso # (Auto) 0.0 (0.0-0.2) X10*3/uL Abs Immat Gran (auto) 0.02 (0.00-0.03) X10*3/uL Absolute Neuts (auto) 2.7 (2.0-8.3) x10*3/uL Absolute Nucleated RBC 0.000 (0.0-0.012) X10*3/uL Nucleated RBC % (auto) 0.0 (0.0-0.2) /100WBC VBG pH 7.39 (7.32-7.43) VBG pCO2 45 mmHg VBG pO2 61 mmHg VBG HCO3 28 H (22-26) mmol/L VBG O2 Saturation 93.0 % VBG Base Excess 2.9 mmol/L Sodium 142 (135-145) mmol/L Potassium 4.2 (3.3-5.1) mmol/L Chloride 106 (96-108) mmol/L Carbon Dioxide 27 (22-29) mmol/L Anion Gap 13 (12-20) BUN 12 (9-16) mg/dL Creatinine 0.85 (0.5-1.4) mg/dL Estim Creat Clear Calc 75.5 Estimated GFR > 60 POC Glucose 181 H (60-115) mg/dL Random Glucose 183 H (60-115) mg/dL Calcium 8.6 D (8.4-10.2) mg/dL Magnesium 1.9 (1.6-2.6) mg/dL Total Bilirubin 0.3 (0.0-1.0) mg/dL Direct Bilirubin 0.1 (0.0-0.5) mg/dL AST 22 (5-37) U/L ALT 10 (0-40) U/L Alkaline Phosphatase 76 (39-117) U/L Troponin I High Sens < 2.7 (<3.5-35.0) ng/L Total Protein 6.4 L (6.5-8.0) g/dL Albumin 3.9 (3.5-5.0) g/dL Lipase 294 H (8-78) U/L Urine Color Urine Appearance Urine pH (5.0-9.0) Ur Specific E[place] (1.005-1.025) Urine Protein (Neg-Trace) mg/dL Urine Glucose (UA) (Negative) mg/dL Urine Ketones (Negative) mg/dL Urine Blood (Negative) Urine Nitrite (Negative) Ur Leukocyte Esterase (Negative) Urine RBC (0-2) /HPF Urine WBC (0-5) /HPF Ur Squamous Epith Cells (0-2) /HPF Urine Bacteria (None Seen) Hyaline Casts (0-2) /LPF Salicylates < 5.0 L (15-30) mg/dL Urine Opiates Screen (Not Detect) Ur Buprenorphine Scrn (Not Detect) ng/mL Ur Oxycodone Screen (Not Detect) ng/mL Urine Methadone Screen (Not Detect) ng/mL Urine Fentanyl Screen (Not Detect) Acetaminophen < 3 (<30) mcg/mL Ur Barbiturates Screen (Not Detect) Ur Phencyclidine Scrn (Not Detect) Ur Amphetamines Screen (Not Detect) U Benzodiazepines Scrn (Not Detect) Urine Cocaine Screen (Not Detect) U Marijuana (THC) Screen (Not Detect) Ethyl Alcohol 300 H* mg/dL COVID-19 (IRINA) Negative (Negative) COVID-19 Clin Com See Note 12/28/23 Range/Units 18:01 WBC (4.8-10.8) X10*3/uL RBC (4.60-5.80) X10*6/uL Hgb (14.0-18.0) g/dl Hct (42.0-52.0) % MCV (80.0-98.0) fL MCH (27.0-33.0) pg MCHC (31.0-36.0) g/dl RDW (11.0-16.0) % Plt Count (160-400) X10*3/uL MPV (9.4-12.4) fL Immature Gran % (Auto) (0.0-0.4) % Neut % (Auto) (45-73) % Lymph % (Auto) (20-40) % [place] % (Auto) (2-11) % Eos % (Auto) (0-4) % Baso % (Auto) (0-2) % Lymph # (Auto) (1.2-4.9) X10*3/uL [place] # (Auto) (0.1-1.2) X10*3/uL Eos # (Auto) (0.0-0.4) X10*3/uL Baso # (Auto) (0.0-0.2) X10*3/uL Abs Immat Gran (auto) (0.00-0.03) X10*3/uL Absolute Neuts (auto) (2.0-8.3) x10*3/uL Absolute Nucleated RBC (0.0-0.012) X10*3/uL Nucleated RBC % (auto) (0.0-0.2) /100WBC VBG pH (7.32-7.43) VBG pCO2 mmHg VBG pO2 mmHg VBG HCO3 (22-26) mmol/L VBG O2 Saturation % VBG Base Excess mmol/L Sodium (135-145) mmol/L Potassium (3.3-5.1) mmol/L Chloride (96-108) mmol/L Carbon Dioxide (22-29) mmol/L Anion Gap (12-20) BUN (9-16) mg/dL Creatinine (0.5-1.4) mg/dL Estim Creat Clear Calc Estimated GFR POC Glucose (60-115) mg/dL Random Glucose (60-115) mg/dL Calcium (8.4-10.2) mg/dL Magnesium (1.6-2.6) mg/dL Total Bilirubin (0.0-1.0) mg/dL Direct Bilirubin (0.0-0.5) mg/dL AST (5-37) U/L ALT (0-40) U/L Alkaline Phosphatase (39-117) U/L Troponin I High Sens (<3.5-35.0) ng/L Total Protein (6.5-8.0) g/dL Albumin (3.5-5.0) g/dL Lipase (8-78) U/L Urine Color Yellow Urine Appearance Clear Urine pH 8.0 (5.0-9.0) Ur Specific [place] <= 1.005 (1.005-1.025) Urine Protein Negative (Neg-Trace) mg/dL Urine Glucose (UA) Negative (Negative) mg/dL Urine Ketones Negative (Negative) mg/dL Urine Blood Moderate (2+) H (Negative) Urine Nitrite Negative (Negative) Ur Leukocyte Esterase Negative (Negative) Urine RBC 0-2 (0-2) /HPF Urine WBC 0-5 (0-5) /HPF Ur Squamous Epith Cells 0-2 (0-2) /HPF Urine Bacteria None Seen (None Seen) Hyaline Casts 0-2 (0-2) /LPF Salicylates (15-30) mg/dL Urine Opiates Screen Not Detected (Not Detect) Ur Buprenorphine Scrn Positive H (Not Detect) ng/mL Ur Oxycodone Screen Not Detected (Not Detect) ng/mL Urine Methadone Screen Not Detected (Not Detect) ng/mL Urine Fentanyl Screen Not Detected (Not Detect) Acetaminophen (<30) mcg/mL Ur Barbiturates Screen Not Detected (Not Detect) Ur Phencyclidine Scrn Not Detected (Not Detect) Ur Amphetamines Screen Not Detected (Not Detect) U Benzodiazepines Scrn Not Detected (Not Detect) Urine Cocaine Screen POSITIVE H (Not Detect) U Marijuana (THC) Screen Not Detected (Not Detect) Ethyl Alcohol mg/dL COVID-19 (IRINA) (Negative) COVID-19 Clin Com Independent Interpretation I performed an independent interpretation of an: EKG Critical Care Time Critical Care Time Critical Care Time: Yes Total Critical Care Time: 90 Attestation: I have personally provided critical care time. Time includes review of lab data, radiology results, discussion with consultants, and monitoring for potential decompensation. Intervention performed as documented. Discharge Plan Discharge Clinical Impression: Drug overdose, Hypotension Patient Disposition: Admitted As Inpatient Prescriptions: No Action thiamine HCl (vitamin B1) 100 mg tablet 1 tab PO DAILY hydroxyzine HCl 50 mg tablet 1 - 2 tab PO Q8H PRN (Reason: Anxiety) folic acid 1 mg tablet 1 tab PO DAILY clonidine HCl 0.1 mg tablet 1 - 2 tab PO TID buprenorphine-naloxone [Suboxone] 2-0.5 mg Film 1 film BUCCAL DAILY Patient Comments: pt reports he takes 1 film daily Rx Instructions: place 1 strip/tab under (each) side of tongue nicotine 14 mg/24 hr patch 24 hour 1 patch topical DAILY Print Language: [place]
[2023-12-28] MEDS: 0.9 % Sodium Chloride 1,000 ML 999 ML IVCONT ×3 (17:37→21:38)
[2023-12-28 17:38] LABS: Glucose, Whole Blood 181 mg/dL (60-115)
[2023-12-28 17:51] LABS: MANUAL DIFF FLAG NO
[2023-12-28 17:56] LABS: VBG Base Excess 2.9 mmol/L; VBG HCO3 28 mmol/L (22-26); VBG pCO2 45 mmHg; VBG pH 7.39 (7.32-7.43); VBG pO2 61 mmHg
[2023-12-28 17:58] LABS: Venous Blood Gas Refer to POC result
[2023-12-28 18:04] LABS: Ethanol 300 mg/dL
[2023-12-28 18:08] LABS: Acetaminophen LAB < 3 mcg/mL (<30); Salicylate < 5.0 mg/dL (15-30)
[2023-12-28 18:14] LABS: Alanine Aminotransferase 10 U/L (0-40); Albumin Level 3.9 g/dL (3.5-5.0); Alkaline Phosphatase 76 U/L (39-117); Anion Gap 13 (12-20); Aspartate Amino Transferase 22 U/L (5-37); Basophils Percent Auto 0.7 % (0-2); Bilirubin Direct 0.1 mg/dL (0.0-0.5); Bilirubin Total 0.3 mg/dL (0.0-1.0); Blood Urea Nitrogen 12 mg/dL (9-16); Calcium 8.6 mg/dL (8.4-10.2); Carbon Dioxide 27 mmol/L (22-29); Chloride 106 mmol/L (96-108); Creatinine Clr Calc Pharmacy 75.5; Eosinophils Absolute Auto 0.2 X10*3/uL (0.0-0.4); Eosinophils Percent Auto 3.9 % (0-4); Estimated Glomerular Filt Rate > 60; Glucose Random 183 mg/dL (60-115); Hematocrit 36.8 % (42.0-52.0); Hemoglobin 13.1 g/dl (14.0-18.0); Imm Gran Abs Auto 0.02 X10*3/uL (0.00-0.03); Imm Gran Pct Auto 0.5 % (0.0-0.4); Lymphocytes Absolute Auto 0.9 X10*3/uL (1.2-4.9); Lymphocytes Percent Auto 20.2 % (20-40); Magnesium 1.9 mg/dL (1.6-2.6); Mean Corpuscular HGB Conc 35.6 g/dl (31.0-36.0); Mean Corpuscular Hemoglobin 32.6 pg (27.0-33.0); Mean Corpuscular Volume 91.5 fL (80.0-98.0); Mean Platelet Volume 8.6 fL (9.4-12.4); Monocytes Absolute Auto 0.6 X10*3/uL (0.1-1.2); Monocytes Percent Auto 13.8 % (2-11); Neutrophils Absolute Auto 2.7 x10*3/uL (2.0-8.3); Neutrophils Percent Auto 60.9 % (45-73); Platelet Count 195 X10*3/uL (160-400); Potassium 4.2 mmol/L (3.3-5.1); Red Blood Count 4.02 X10*6/uL (4.60-5.80); Red Cell Distribution Width 14.6 % (11.0-16.0); Sodium 142 mmol/L (135-145); Total Protein 6.4 g/dL (6.5-8.0); White Blood Count 4.4 X10*3/uL (4.8-10.8)
[2023-12-28 18:18] LABS: Troponin-I High Sensitivity < 2.7 ng/L (<3.5-35.0)
[2023-12-28 18:20] LABS: Amphetamine Screen Urine Not Detected (Not Detect); Barbiturates, Urine Not Detected (Not Detect); Benzodiazepines Screen Urine Not Detected (Not Detect); Buprenorphine Scr Positive (Not Detect); Cannabinoid Screen Urine Not Detected (Not Detect); Cocaine Screen Urine POSITIVE (Not Detect); Fentanyl, urine Not Detected (Not Detect); Methadone Screen, Urine Not Detected (Not Detect); Opiate Screen Urine Not Detected (Not Detect); Oxycodone Screen Urine Not Detected (Not Detect); Phencyclidine Screen Urine Not Detected (Not Detect)
[2023-12-28 18:20] LABS: COVID-19 Test Negative (Negative); IDNOW Serial# 58CA691E
[2023-12-28 18:27] LABS: Lipase 294 U/L (8-78)
[2023-12-28 18:27] LABS: Appearance Urine Clear; Color Urine Yellow; Glucose Urine UA Negative (Negative); Leukocyte Esterase Urine Negative (Negative); Nitrite Urine Negative (Negative); Specific Gravity - Urine <= 1.005 (1.005-1.025); UMIC TRIGGER UACC YES; Urine Blood Moderate (2+) (Negative); Urine Ketones Negative (Negative); Urine Protein Negative (Neg-Trace)
[2023-12-28 18:38] VITALS: BP 93/53; PULSE 53; RESP 18; O2SAT 100
[2023-12-28 18:42] LABS: Bacteria Urine None Seen (None Seen); Hyaline Casts Urine 0-2 /LPF (0-2); RBC Urine 0-2 /HPF (0-2); Squamous Epithelial Cell Urine 0-2 /HPF (0-2); WBC Urine 0-5 /HPF (0-5)
--- NOTE | 2023-12-28 19:01 | MHC.RECOVSUP ---
? Reason for consult Recovery Support o Current location: ED22 o Identified substance use concern: Heroin - Overdose - Support ? Intervention: <del>o</del> <del>ATS</del> <del>bed</del> <del>search</del> <del>started/completed/in</del> <del>process</del> <del>o</del> <del>MAT</del> <del>started</del> <del>or</del> <del>to</del> <del>be</del> <del>started</del> <del>o</del> <del>Community</del> <del>resources</del> <del>provided</del> <del>o</del> <del>Harm</del> <del>reduction</del> <del>discussion</del> <del>?</del> <del>Plan:</del> <del>o</del> <del>Referral</del> <del>to</del> <del>[facility]</del> <del>o</del> <del>Bed</del> <del>search</del> <del>in</del> <del>progress</del> <del>to</del> <del>o</del> <del>Follow</del> <del>up</del> <del>tomorrow</del> <del>o</del> <del>Patient</del> <del>awaiting</del> <del>crisis</del> <del>evaluation</del> <del>o</del> <del>Patient</del> <del>to</del> <del>follow</del> <del>up</del> <del>with</del> <del>[facility]</del> <del>after</del> <del>discharge</del> ? Additional information: Attempt to interview but Patient was not alert.
--- NOTE | 2023-12-28 19:04 | ECG_ITS ---
Test Reason : HYPOTENSIVE Blood Pressure : / mmHG Vent. Rate : 047 BPM Atrial Rate : 101 BPM P-R Int : 000 ms QRS Dur : 100 ms QT Int : 564 ms P-R-T Axes : 008 043 038 degrees QTc Int : 499 ms Sinus tachycardia with 2nd degree A-V block (Mobitz I) Prolonged QT Abnormal ECG When compared with ECG of 28-DEC-2023 17:23, Sinus rhythm is now with 2nd degree A-V block (Mobitz I) Referred By: Isis Tran Electronically Signed By:ROMULO TINAJERO
--- NOTE | 2023-12-28 19:06 | PC.NURSE ---
poison control contacted, monitor for hypotension, give IV fluids, narcan also OK. EKG q2hr x2 then ekg q4hr, monitor overnight on tele
--- NOTE | 2023-12-28 20:13 | PC.NURSE ---
BP low, MD aware, this rn placed pt in trendelenberg and started 1LNS per MDorder.
[2023-12-28 20:15] VITALS: BP 81/48; PULSE 51; RESP 18; O2SAT 96
[2023-12-28 22:18] VITALS: BP 97/59; PULSE 53; RESP 14; O2SAT 99
[2023-12-28 23:24] VITALS: BP 74/44; PULSE 47; RESP 11; TEMP 34.9; O2SAT 98
[2023-12-29] VITALS (23 sets, daily range): BP systolic 89–164; BP diastolic 56–102; PULSE 39–92; RESP 12–20; TEMP 34.4–38.5; O2SAT 95–100; BMI 21.1
--- NOTE | 2023-12-29 | ECG_ITS ---
Test Reason : mobitz type 1 Blood Pressure : / mmHG Vent. Rate : 066 BPM Atrial Rate : 066 BPM P-R Int : 132 ms QRS Dur : 086 ms QT Int : 390 ms P-R-T Axes : -05 033 035 degrees QTc Int : 408 ms Normal sinus rhythm with sinus arrhythmia Normal ECG When compared with ECG of 28-DEC-2023 23:27, Sinus rhythm is no longer with 2nd degree A-V block (Mobitz I) QT has shortened Referred By: Kathy Paz Electronically Signed By:ROMULO TINAJERO
[2023-12-29] MEDS: iohexoL 350 MG/ML 100 ML INFUS..BTL 85 ML IV (00:09)
--- NOTE | 2023-12-29 00:18 | PC.NURSE ---
pt placed on rectal temp probe
[2023-12-29] MEDS: Norepinephrine Bitartrate/D5W 8 MG/250 ML PLAST..BAG 5.1 MG IV (00:36)
[2023-12-29] MEDS: Heparin Sodium,Porcine 5,000 UNIT/ML VIAL 5000 UNIT SUBCUT ×4 (02:12→23:25)
--- NOTE | 2023-12-29 02:43 | P.HPCC_ITS ---
History of Present Illness Date of Service: 12/29/23 Attending physician on admission: Bernardo Reilly Chief Complaint: Overdose Mr. May is a 53-year-old male with history of? alcohol abuse, alcohol withdrawal with seizures, schizophrenia, adjustment disorder, anxiety /depression? who was brought in by ambulance for a clonidine overdose.? According to EMS, the patient told his therapist over the phone that he took 40 tablets of clonidine 0.1 mg. He became unresponsive and the therapist then called 911. The patient was brought in on a section 12. On arrival to the emergency room, the patient's blood pressure was 117/68, heart rate 70, temp 98.0. O2 Sat 96% on room air.? Laboratory data remarkable for a lipase of 294,?alcohol 300, tox screen positive for buprenorphine and cocaine. Imaging: CT/CT abdomen pelvis w IV con: 1.? There is asymmetric enlargement of the left rectus muscle with an ill-defined low-attenuation collection within the muscle measuring approximately 3.3 x 1.9 x 3.0 cm. This may represent an intramuscular hematoma versus infectious process, correlate clinically. 2.? Punctate focus of nondependent gas in the bladder, correlate with truncation, and urinalysis. 3.? Patchy opacities in the lung bases favoring atelectasis versus aspiration. 4.? Hepatic steatosis. ED course: ?The patient received 3 L normal saline.? He became hypothermic and was placed on a Nava Hugger.? He became hypotensive refractory to IV fluids and was started on Levophed. Review of Systems 2 Review of Systems: Yes all other systems are reviewed and are negative Constitutional: Constitutional: Reports no additional constitutional complaints Psychiatric: Psychiatric: Reports no additional psychiatric complaints [facility] Past Medical History Medical History Chronic back pain Drug dependence Depression Gout Alcohol withdrawal seizure Anxiety Alcohol abuse Seizure disorder Adjustment disorder Schizophrenia Alcohol abuse Depression Anxiety Family History Family History Other Cancer Dementia Stroke Social History Social History Household Members: None Housing: Unknown / Unable to assess Do you presently have visiting nurse or other home services: No Alcohol intake: current Alcohol intake frequency: 3 or more drinks per day Alcohol type: hard liquor Patient Tobacco Use Status: Current everyday Tobacco user Tobacco use type: Cigarette Cigarette Packs Per Day: 0.5 Cigarettes Per Day: 10 Smoked in Last 30 Days: Yes Patient Interested in Nicotine Replacement: No Second Hand Smoke Exposure: No Use of substances other than those prescribed or required for medical reasons: No Advance Directives: No Advance Directives Information Provided: No Suicidal Behavior: History of suicide attemps Current/Past Psychiatric Disorders: Alcohol abuse, Psychotic disorder and Substance abuse Do you have a plan to hurt others: No Plan Recently lost weight without trying: Yes How much weight loss: Unsure Nutrition Risks: No Nutritional Risk service: No Current occupational status: other Meds Allergies Allergy/AdvReac Type Severity Reaction Status Date / Time No Known Allergies Allergy Verified 12/28/23 17:20 [No Known Allergies*] Active Medications: Current Medications Heparin Sodium (Porcine) (Heparin Sodium,Porcine 5,000 Unit/Ml Vial) 5,000 unit SUBCUT Q8H [facility] Last Admin: 12/29/23 02:12 Dose: 5,000 unit Norepinephrine Bitartrate (Levophed) 8 mg in 250 mls @ 0 mls/hr IV .Q0M [facility]; Protocol Last Admin: 12/29/23 00:36 Dose: 0.05 mcg/kg/min, 5.1 mls/hr Home Medications ?Medication ?Instructions ?Recorded ?Confirmed ?Last Taken ?Type Unobtainable 12/29/23 12/29/23 Unknown History Physical Exam 2 Vital Signs: Vital Signs: Last Vital Signs Temp 93.9 F L 12/29/23 01:21 Pulse 39 L 12/29/23 01:21 Resp 14 12/29/23 01:21 BP 136/83 12/29/23 01:21 Pulse Ox 97 12/29/23 01:21 O2 Del Method Room Air 12/29/23 01:21 O2 Flow Rate 2 12/28/23 23:24 BMI result Body Mass Index 17.2 Const: General: no acute distress, alert and awake O rientation/consciousness: patient oriented x3 (answering appropriately.) L imitations: no limitations HEENT: Head: Yes normocephalic and Yes atraumatic General nose exam: Normal external nose present (Nares patent, septum midline, sinuses nontender bilaterally.) Mouth: Normal oral and palatal mucosa present (No thrush, tongue in midline, mucosa moist.) Throat: Yes other (No erythema, no exudate.) Neck: Neck: Yes supple (no thyromegaly, trachea midline.) Carotids: normal carotid upstroke Resp: Auscultation: clear to auscultation bilaterally (normal work of breathing, no accessory muscle use), no rales, no rhonchi and no wheezes Cardio: Jugular venous distension: no JVD Rate: bradycardic Rhythm: r egular rhythm Heart sounds: no gallops, no murmurs and no rubs Peripheral pulses: Peripheral pulses 2+ throughout GI: Inspection: Yes normal to inspection Palpation (GI): Soft to palpation (nondistended.) and nontender Skin: General skin exam: no rashes or lesions noted Neuro: General: patient oriented x3 (answering appropriately.) Cognition (Neuro): normal cognition Extrem: General: Yes full ROM, Yes capillary refill normal and Yes no clubbing, cyanosis or edema Psych: Speech and movement: Normal speech and movement present Affect: B lunted affect present Attitude: cooperative Thought content: Suicidality present Results Labs 12/29/23 06:02 12/29/23 06:02 Labs: Laboratory Results - last 24 hr 12/28/23 12/28/23 12/28/23 17:21 17:46 17:51 MCV 91.5 MCH 32.6 MCHC 35.6 RDW 14.6 Plt Count 195 MPV 8.6 L Immature Gran % (Auto) 0.5 H Neut % (Auto) 60.9 Lymph % (Auto) 20.2 [place] % (Auto) 13.8 H Eos % (Auto) 3.9 Baso % (Auto) 0.7 Lymph # (Auto) 0.9 L [place] # (Auto) 0.6 Eos # (Auto) 0.2 Baso # (Auto) 0.0 Abs Immat Gran (auto) 0.02 Absolute Neuts (auto) 2.7 Absolute Nucleated RBC 0.000 Nucleated RBC % (auto) 0.0 VBG pH 7.39 VBG pCO2 45 VBG pO2 61 VBG HCO3 28 H VBG O2 Saturation 93.0 VBG Base Excess 2.9 Anion Gap 13 Estim Creat Clear Calc 75.5 Estimated GFR > 60 POC Glucose 181 H Random Glucose 183 H Calcium 8.6 D Magnesium 1.9 Total Bilirubin 0.3 Direct Bilirubin 0.1 AST 22 ALT 10 Alkaline Phosphatase 76 Troponin I High Sens < 2.7 Total Protein 6.4 L Albumin 3.9 Lipase 294 H Urine Color Urine Appearance Urine pH Ur Specific [place] Urine Protein Urine Glucose (UA) Urine Ketones Urine Blood Urine Nitrite Ur Leukocyte Esterase Urine RBC Urine WBC Ur Squamous Epith Cells Urine Bacteria Hyaline Casts Salicylates < 5.0 L Urine Opiates Screen Ur Buprenorphine Scrn Ur Oxycodone Screen Urine Methadone Screen Urine Fentanyl Screen Acetaminophen < 3 Ur Barbiturates Screen Ur Phencyclidine Scrn Ur Amphetamines Screen U Benzodiazepines Scrn Urine Cocaine Screen U Marijuana (THC) Screen Ethyl Alcohol 300 H* COVID-19 ([facility]) Negative COVID-19 Clin Com See Note 12/28/23 18:01 MCV MCH MCHC RDW Plt Count MPV Immature Gran % (Auto) Neut % (Auto) Lymph % (Auto) [place] % (Auto) Eos % (Auto) Baso % (Auto) Lymph # (Auto) [place] # (Auto) Eos # (Auto) Baso # (Auto) Abs Immat Gran (auto) Absolute Neuts (auto) Absolute Nucleated RBC Nucleated RBC % (auto) VBG pH VBG pCO2 VBG pO2 VBG HCO3 VBG O2 Saturation VBG Base Excess Anion Gap Estim Creat Clear Calc Estimated GFR POC Glucose Random Glucose Calcium Magnesium Total Bilirubin Direct Bilirubin AST ALT Alkaline Phosphatase Troponin I High Sens Total Protein Albumin Lipase Urine Color Yellow Urine Appearance Clear Urine pH 8.0 Ur Specific Wal[place] <= 1.005 Urine Protein Negative Urine Glucose (UA) Negative Urine Ketones Negative Urine Blood Moderate (2+) H Urine Nitrite Negative Ur Leukocyte Esterase Negative Urine RBC 0-2 Urine WBC 0-5 Ur Squamous Epith Cells 0-2 Urine Bacteria None Seen Hyaline Casts 0-2 Salicylates Urine Opiates Screen Not Detected Ur Buprenorphine Scrn Positive H Ur Oxycodone Screen Not Detected Urine Methadone Screen Not Detected Urine Fentanyl Screen Not Detected Acetaminophen Ur Barbiturates Screen Not Detected Ur Phencyclidine Scrn Not Detected Ur Amphetamines Screen Not Detected U Benzodiazepines Scrn Not Detected Urine Cocaine Screen POSITIVE H U Marijuana (THC) Screen Not Detected Ethyl Alcohol COVID-19 ([facility]) COVID-19 Clin Com Imaging Radiologist's Impressions: Impressions Abdomen/Pelvis CT 12/28/23 23:47 IMPRESSION: 1. There is asymmetric enlargement of the left rectus muscle with an ill-defined low-attenuation collection within the muscle measuring approximately 3.3 x 1.9 x 3.0 cm. This may represent an intramuscular hematoma versus infectious process, correlate clinically. 2. Punctate focus of nondependent gas in the bladder, correlate with truncation, and urinalysis. 3. Patchy opacities in the lung bases favoring atelectasis versus aspiration. 4. Hepatic steatosis. Fleischner guidelines were followed. Electronically signed by: Zane Cano MD 12/29/2023 01:16 AM EDT RP Assessment and Plan (1) Drug overdose: Qualifiers: Encounter type: initial encounter Injury intent: intentional self-harm Qualified Code(s): T50.902A - Poisoning by unspecified drugs, medicaments and biological substances, intentional self-harm, initial encounter Status: Acute (2) Hypotension: Qualifiers: Hypotension type: hypotension due to drug Qualified Code(s): I95.2 - Hypotension due to drugs Status: Acute (3) Bradycardia: Status: Acute Plan 53-year-old male with history of alcohol abuse, alcohol withdrawal with seizures, schizophrenia, adjustment disorder, anxiety /depression ? Brought in on a section 12 admitted with drug overdose, hypotension, bradycardia. Neuro: No acute issues. Cardiac: Hypotension, bradycardia due to clonidine overdose. Continue Levophed. Closely monitor HR and BP. Pulmonary: No acute issues. Renal:? No acute issues. Endo: No acute issues.? GI: Hepatic steatosis, possible infectious process noted on CT. Monitor hepatic function, trend lipase.? ID: No acute issues. Heme/Onc: No acute issues. Psych:? Underlying schizophrenia, adjustment disorder, anxiety/depression. Patient is section 12,?suicidal ideation. Suicide precautions, one-to-one sitter at bedside. ETOH 300. CIWA. Psych consult, addiction medicine consult placed. Miscellaneous:? No acute issues. Prophylaxis: pneumatic boots, heparin? Diet: NPO Case discussed with attending Dr. Reilly. Total time managing care of this patient today: 60 minutes.
[2023-12-29 06:08] LABS: Venous Blood Gas Refer to POC result
[2023-12-29 06:11] LABS: MANUAL DIFF FLAG NO
[2023-12-29 06:12] LABS: Basophils Percent Auto 0.5 % (0-2); Eosinophils Absolute Auto 0.1 X10*3/uL (0.0-0.4); Eosinophils Percent Auto 3.3 % (0-4); Hematocrit 34.5 % (42.0-52.0); Imm Gran Abs Auto 0.01 X10*3/uL (0.00-0.03); Imm Gran Pct Auto 0.3 % (0.0-0.4); Lymphocytes Absolute Auto 1.3 X10*3/uL (1.2-4.9); Lymphocytes Percent Auto 32.6 % (20-40); Mean Corpuscular HGB Conc 34.8 g/dl (31.0-36.0); Mean Corpuscular Hemoglobin 32.4 pg (27.0-33.0); Mean Corpuscular Volume 93.2 fL (80.0-98.0); Monocytes Absolute Auto 0.5 X10*3/uL (0.1-1.2); Monocytes Percent Auto 13.5 % (2-11); Neutrophils Percent Auto 49.8 % (45-73); Platelet Count 166 X10*3/uL (160-400); Red Cell Distribution Width 14.6 % (11.0-16.0); White Blood Count 3.9 X10*3/uL (4.8-10.8)
[2023-12-29 06:12] LABS: VBG Base Excess -1.9 mmol/L; VBG HCO3 19 mmol/L (22-26); VBG pCO2 25 mmHg; VBG pH 7.49 (7.32-7.43); VBG pO2 137 mmHg
[2023-12-29 06:27] LABS: Lipase 95 U/L (8-78); Phosphorus 3.3 mg/dL (2.7-4.5)
[2023-12-29 06:47] LABS: Anion Gap 17 (12-20)
[2023-12-29 06:58] LABS: Alanine Aminotransferase 18 U/L (0-40); Albumin Level 3.4 g/dL (3.5-5.0); Alkaline Phosphatase 72 U/L (39-117); Aspartate Amino Transferase 42 U/L (5-37); Bilirubin Total 0.2 mg/dL (0.0-1.0); Blood Urea Nitrogen 10 mg/dL (9-16); Calcium 8.3 mg/dL (8.4-10.2); Creatinine Clr Calc Pharmacy 104.9; Estimated Glomerular Filt Rate > 60; Glucose Random 117 mg/dL (60-115); Magnesium 1.7 mg/dL (1.6-2.6); Total Protein 5.6 g/dL (6.5-8.0)
[2023-12-29 07:09] LABS: Carbon Dioxide 18 mmol/L (22-29); Chloride 110 mmol/L (96-108); Potassium 4.2 mmol/L (3.3-5.1); Sodium 140 mmol/L (135-145)
--- NOTE | 2023-12-29 09:23 | PHA.MEDREC ---
Addendum entered by Jimena Schwab RPh 12/29/23 09:29: Reviewed by [facility] Original Note: Pharmacy Consult ? Medication Reconciliation Pharmacy has completed the medication reconciliation. Med list unattainable. Unable to speak to patient due to patient unresponsive. Contact phone not in service and no recant claim history since 09-12-23 for Suboxone, however was only a 14 day supply.
[2023-12-29] MEDS: cefEPime HCl 2 GM in 0.9 % Sodium Chloride 50 ML IV (09:28)
--- NOTE | 2023-12-29 10:19 | PHA.PROG ---
Admission Date/Time: December 28, 2023 23:59 Indication: OTHER Weight in k.7 kg Adjusted body weight in Kg: [place] body weight in Kg: Obesity Dosing Indication % IBW: Serum Creatinine - Last 168 Hours 12/28/23 12/29/23 17:46 06:02 Creatinine 0.85 0.75 Estimated CrCl and GFR - Last 168 Hours 12/28/23 12/29/23 17:46 06:02 Estim Creat Clear Calc 75.5 104.9 Estimated GFR > 60 > 60 Vancomycin Loading Dose: 2000 MG Current Vancomycin Dosing Regimen: 1000 MG Q12H Vancomycin Monitoring using AUC goal of 400 - 600 range with trough as surrogate marker: UJK=471 TROUGH=14.8 Date and Time for next Vancomycin Level to be drawn: 12/30/23 @1900 Pharmacist Comments on Vancomycin Plan: Vancomycin dosing will take advantage of [employer] as a clinical decision support tool that uses Bayesian modeling to calculate individual patient's pharmacokinetic parameters and forecast the patient's drug concentration time course with the target goal AUC 24 range of 400 - 600 mg/L/hr.
--- NOTE | 2023-12-29 12:27 | MHC.CM.PN ---
Met w/pt to review d/c planning needs: Pt resides alone, has no PCP but has a mental health counselor. No services or DME used. Pt will need to be seen by [facility] when medically cleared for ? INPT psych need. Pt would like to return to home - will need transportation. Declined HCP. CM to follow
--- NOTE | 2023-12-29 12:53 | PM.PROC ---
Brief Operative Note Date of procedure: 12/29/23 Pre-op diagnosis: Left rectus sheath fluid collection Post-op diagnosis: other (Left rectus old hematoma) Procedure: Images show complex fluid collection in the rectus sheath. 25 g aspiration performed under US. 3 cc dark non clotting blood tinged fluid aspirated and sent for culture. No immediate complications Anesthesia: local
[2023-12-29] MEDS: Lidocaine HCl 1 % MPF 5 ML VIAL SUBCUT (13:09)
[2023-12-29] MEDS: PHENobarbitaL sodium 130 MG/ML IM ONCE 215 MG IM (15:11)
--- NOTE | 2023-12-29 15:13 | PM.CCN ---
Critical Care Event Note Summary Date of Service: 12/29/23 Code activated: No Narrative: 53-year-old gentleman with underlying alcohol abuse with prior alcohol withdrawal, schizophrenia, substance abuse admitted on 12/29/23 with intentional clonidine overdose with hypotension poorly responsive to initial IV fluid resuscitation briefly requiring pressor support and monitored in the intensive care unit. CT scan with rectus she has fluid collection, aspirated by intervention Radiology and noted consists of partially clotted blood, likely rectus sheath hematoma. Now awake and alert with early withdrawal symptoms started on phenobarbital protocol being transferred to the telemetry dietrich. Critical Care Time (minutes): 0
[2023-12-29] MEDS: Piperacillin Sodium/Tazobactam 3.375 GM in 0.9 % Sodium Chloride 50 ML IV ×2 (16:32→23:24)
[2023-12-29] MEDS: Acetaminophen 325 MG TABLET 650 MG PO (17:58)
[2023-12-29] MEDS: PHENobarbitaL sodium 130 MG/ML VIAL IM Q3Hx2 160 MG IM ×2 (17:58→20:57)
--- NOTE | 2023-12-29 18:17 | PM.EVENT ---
Event Note Date of Service: 12/29/23 Event Note: Patient was downgraded from ICU today afternoon. Seen and examined-by ICU this morning. As per ICU note: 53-year-old gentleman with underlying alcohol abuse with prior alcohol withdrawal, schizophrenia, substance abuse admitted on 12/29/23 with intentional clonidine overdose with hypotension poorly responsive to initial IV fluid resuscitation briefly requiring pressor support and monitored in the intensive care unit. CT scan with rectus she has fluid collection, aspirated by intervention Radiology and noted consists of partially clotted blood, likely rectus sheath hematoma. Patient seen again-has some cough otherwise denies any new symptoms. Has some anxious and mild tremulous Fever possible sec to hematoma vs atelactasis . No tachycardia tachypnea wbc count 3.[address] chest shows -possible aspiration no sepsis. plan : Management discussed with ICU-will add Zosyn for possible aspiration pneumonitis ekg intial shows mobitz type 1 , will repeat ekg moniter on tele also added cardiology eval for am Time Spent With Patient Time: Total time managing care of this patient today ____ minutes.
[2023-12-29] MEDS: Lactated Ringers 1,000 ML 100 ML IVCONT (18:35)
[2023-12-29 19:25] LABS: Thyroid Stimulating Hormone 1.88 uIU/mL (0.32-4.0)
[2023-12-30] VITALS (7 sets, daily range): BP systolic 112–140; BP diastolic 65–72; PULSE 52–65; RESP 18–20; TEMP 36.4–37.7; O2SAT 95–98
[2023-12-30] MEDS: Piperacillin Sodium/Tazobactam 3.375 GM in 0.9 % Sodium Chloride 50 ML IV ×4 (05:00→21:37)
[2023-12-30] MEDS: Lactated Ringers 1,000 ML 100 ML IVCONT ×2 (05:07→13:56)
[2023-12-30 07:16] LABS: Alanine Aminotransferase 13 U/L (0-40); Albumin Level 3.1 g/dL (3.5-5.0); Alkaline Phosphatase 80 U/L (39-117); Anion Gap 11 (12-20); Aspartate Amino Transferase 23 U/L (5-37); Bilirubin Total 0.7 mg/dL (0.0-1.0); Blood Urea Nitrogen 10 mg/dL (9-16); Calcium 7.9 mg/dL (8.4-10.2); Carbon Dioxide 25 mmol/L (22-29); Chloride 103 mmol/L (96-108); Creatinine Clr Calc Pharmacy 100.9; Estimated Glomerular Filt Rate > 60; Glucose Random 85 mg/dL (60-115); Magnesium 1.4 mg/dL (1.6-2.6); Potassium 3.6 mmol/L (3.3-5.1); Sodium 135 mmol/L (135-145); Total Protein 5.2 g/dL (6.5-8.0)
[2023-12-30] MEDS: Potassium Chloride ER 20 MEQ TAB.ER.PRT PO (08:04)
[2023-12-30] MEDS: PHENobarbitaL 15 MG TABLET 45 MG PO ×2 (08:05→21:37)
[2023-12-30] MEDS: Magnesium Sulfate/H2O 2 GM/50 ML PIGGYBACK IV (08:05)
[2023-12-30] MEDS: Heparin Sodium,Porcine 5,000 UNIT/ML VIAL 5000 UNIT SUBCUT ×2 (08:05→15:30)
[2023-12-30] MEDS: Magnesium Oxide 400 MG TABLET 800 MG PO (08:05)
[2023-12-30 08:39] LABS: Hematocrit 34.3 % (42.0-52.0); Hemoglobin 12.1 g/dl (14.0-18.0); Mean Corpuscular HGB Conc 35.3 g/dl (31.0-36.0); Mean Corpuscular Hemoglobin 31.9 pg (27.0-33.0); Mean Corpuscular Volume 90.5 fL (80.0-98.0); Mean Platelet Volume 9.4 fL (9.4-12.4); Platelet Count 152 X10*3/uL (160-400); Red Blood Count 3.79 X10*6/uL (4.60-5.80); Red Cell Distribution Width 13.9 % (11.0-16.0); White Blood Count 7.8 X10*3/uL (4.8-10.8)
[2023-12-30 09:11] LABS: Adenovirus PCR Not Detected (Not Detect.); Bordetella parapertussis PCR Not Detected (Not Detect.); Bordetella pertussis PCR Not Detected (Not Detect.); Chlamydia pneumoniae PCR Not Detected (Not Detect.); Coronavirus 229E PCR Not Detected (Not Detect.); Coronavirus HKU1 PCR Not Detected (Not Detect.); Coronavirus NL63 PCR Not Detected (Not Detect.); Coronavirus OC43 PCR Not Detected (Not Detect.); Human metapneumovirus PCR Not Detected (Not Detect.); Influenza A PCR Not Detected (Not Detect.); Influenza B PCR Not Detected (Not Detect.); Mycoplasma pneumoniae PCR Not Detected (Not Detect.); Parainfluenza 1 PCR Not Detected (Not Detect.); Parainfluenza 2 PCR Not Detected (Not Detect.); Parainfluenza 3 PCR Not Detected (Not Detect.); Parainfluenza 4 PCR Not Detected (Not Detect.); RSV PCR Not Detected (Not Detect.); Rhino/Enterovirus PCR Not Detected (Not Detect.); SARS-CoV-2 PCR Not Detected (Not Detect.)
--- NOTE | 2023-12-30 12:35 | MHC.CM.PN ---
EMR REVIEWED, PT W/INTENTIONAL OD OF CLONIDINE W/ETOH, PT ICU STEPDOWN AND NOT READY FOR DC, PT WILL NEED [facility]N/CARE TEAM TO DETERMINE IF HE WILL NEED IPLOC, CM WILL CONT TO FOLLOW DC NEEDS.
--- NOTE | 2023-12-30 15:31 | PM.EVENT ---
Event Note Date of Service: 12/30/23 Event Note: Addiction consult placed for patient with AUD currently admitted following intentional clonidine overdose AUD consult deferred at this time Will follow up after BH evaluation completed Time Spent With Patient Time: Total time managing care of this patient today ____ minutes.
--- NOTE | 2023-12-30 16:51 | P.PNIM_ITS ---
Subjective Subjective Date of Service: 12/30/23 Interval History: clonidine overdose Review of Systems has cough also soarness in hematoma area no fevers Physical Exam 2 Vital Signs: Vital Signs: Last Vital Signs Temp 98.2 F 12/30/23 15:36 Pulse 65 12/30/23 15:36 Resp 20 12/30/23 15:36 BP 140/72 H 12/30/23 15:36 Pulse Ox 98 12/30/23 15:36 O2 Del Method Room Air 12/30/23 15:36 O2 Flow Rate 2 12/28/23 23:24 BMI result Body Mass Index 21.1 Appearance: Alert.? Oriented X3.? . cvs: rrr, [id number] , no murmur res: air entry fair ,slightly diminshed at bases. abd: no rebound or guarding ,nt, bs present. ext pulses present , no cyanosis . neuro: axo3 , nonfocal. Objective Data Active Medications Acetaminophen (Acetaminophen 325 Mg Tablet) 650 mg PO Q6H PRN PRN Reason: Fever >100.4 Last Admin: 12/29/23 17:58 Dose: 650 mg Documented By: GEOVANI Heparin Sodium (Porcine) (Heparin Sodium,Porcine 5,000 Unit/Ml Vial) 5,000 unit SUBCUT Q8H [facility] Last Admin: 12/30/23 15:30 Dose: 5,000 unit Documented By: YVONNE Piperacillin Sod/Tazobactam (Sod 3.375 gm/ Sodium Chloride) 50 mls @ 100 mls/hr IV Q6H [facility] Last Infusion: 12/30/23 16:10 Dose: Infused Documented By: YVONNE Lactated Ringer's (Lr) 1,000 mls @ 100 mls/hr IVCONT .Q10H [facility] Last Admin: 12/30/23 13:56 Dose: 100 mls/hr Documented By: YVONNE Magnesium Oxide (Magnesium Oxide 400 Mg Tablet) 800 mg PO DAILY [facility] Last Admin: 12/30/23 08:05 Dose: 800 mg Documented By: DAVI Pharmacy Consult (Consult Rx Etoh Phenob Im/Po) 1 each MISCELLANE ONCE PRN; Protocol PRN Reason: Consult order Phenobarbital (Phenobarbital 15 Mg Tablet) 45 mg PO BID [facility]; Protocol Stop: 12/31/23 21:01 Last Admin: 12/30/23 08:05 Dose: 45 mg Documented By: HAFSAKEYSHAWN Phenobarbital (Phenobarbital 30 Mg Tablet) 30 mg PO BID [facility]; Protocol Stop: 01/02/24 21:01 Phenobarbital (Phenobarbital 30 Mg Tablet) 30 mg PO DAILY [facility]; Protocol Stop: 01/04/24 09:01 Labs 12/30/23 08:22 12/30/23 06:17 Labs: Laboratory Results - last 24 hr 12/29/23 12/29/23 12/30/23 06:02 18:45 06:17 MCV MCH MCHC RDW Plt Count MPV Absolute Nucleated RBC Nucleated RBC % (auto) Hold Purple Top SEE NOTE Anion Gap 11 L Estim Creat Clear Calc 100.9 Estimated GFR > 60 Random Glucose 85 Calcium 7.9 L Magnesium 1.4 L* Total Bilirubin 0.7 AST 23 ALT 13 Alkaline Phosphatase 80 Total Protein 5.2 L Albumin 3.1 L TSH 1.88 Respiratory Panel [place]iley See Note Adenovirus (Rapid PCR) Not Detected B.pert (TEM-PCR) Not Detected B.parapertussis DNA PCR Not Detected C. pneumoniae DNA (PCR) Not Detected Coronavirus OC43 (PCR) Not Detected Coronavirus HKU1 (PCR) Not Detected Coronavirus 229E (PCR) Not Detected Coronavirus NL63 (PCR) Not Detected Human Metapneumovir PCR Not Detected Influenza A (RT-PCR) Not Detected Influenza B (RT-PCR) Not Detected M. pneumoniae (PCR) Not Detected Parainfluenza 1 (PCR) Not Detected Parainfluenza 2 (PCR) Not Detected Parainfluenza 3 (PCR) Not Detected Parainfluenza 4 (PCR) Not Detected RSV (PCR) Not Detected Entero/Rhino (PCR) Not Detected SARS-CoV-2 RNA (RT-PCR) Not Detected 12/30/23 08:22 MCV 90.5 MCH 31.9 MCHC 35.3 RDW 13.9 Plt Count 152 L MPV 9.4 Absolute Nucleated RBC 0.000 Nucleated RBC % (auto) 0.0 Hold Purple Top Anion Gap Estim Creat Clear Calc Estimated GFR Random Glucose Calcium Magnesium Total Bilirubin AST ALT Alkaline Phosphatase Total Protein Albumin TSH Respiratory Panel [place]iley Adenovirus (Rapid PCR) B.pert (TEM-PCR) B.parapertussis DNA PCR C. pneumoniae DNA (PCR) Coronavirus OC43 (PCR) Coronavirus HKU1 (PCR) Coronavirus 229E (PCR) Coronavirus NL63 (PCR) Human Metapneumovir PCR Influenza A (RT-PCR) Influenza B (RT-PCR) M. pneumoniae (PCR) Parainfluenza 1 (PCR) Parainfluenza 2 (PCR) Parainfluenza 3 (PCR) Parainfluenza 4 (PCR) RSV (PCR) Entero/Rhino (PCR) SARS-CoV-2 RNA (RT-PCR) Microbiology Microbiology Results: Microbiology 12/29/23 12:41 Gram Stain - Final Abdomen - Abdominal Routine Culture - Preliminary No growth to date. Anaerobic Culture - Preliminary No growth to date. Assessment and Plan (1) Drug overdose: Status: Acute (2) Aspiration into airway: Status: Acute Assessment and Plan: 53-year-old gentleman with underlying alcohol abuse with prior alcohol withdrawal, schizophrenia, substance abuse admitted on 12/29/23 with intentional clonidine overdose with hypotension poorly responsive to initial IV fluid resuscitation briefly requiring pressor support and monitored in the intensive care unit. CT scan with rectus she has fluid collection, aspirated by intervention Radiology and noted consists of partially clotted blood, likely rectus sheath hematoma. Alcohol withdrawals: moniter ciwa phenobarbital possible aspiration pneumonia: Started on IV antibiotic zosyn abnormal ekg: reviewed with cardiology dr gibson -no phuongitz 1 ,sinus rythem. rectus muscle hematoma -has soaness moniter h/h s/p needle aspiration , culture pending Underlying schizophrenia, adjustment disorder, anxiety/depression. Patient is section 12as per icu note ,?suicidal ideation.one-to-one sitter at bedside. need n clearence. ongoing hospitlisation need: alcohol withdrwals-on phenobarbital protocol, asp pneumonia -on antibiotics , Quality Stroke Does the patient have a stroke diagnosis?: No VTE Prior VTE?: No VTE Risk Level:: Medical - moderate - high VTE Device Contraindication: N/A - Device Ordered VTE Drug Contraindication: N/A - Med Ordered
[2023-12-30] MEDS: Acetaminophen 325 MG TABLET 650 MG PO (21:39)
[2023-12-31] MEDS: Heparin Sodium,Porcine 5,000 UNIT/ML VIAL 5000 UNIT SUBCUT ×2 (01:56→09:28)
[2023-12-31] MEDS: Lactated Ringers 1,000 ML 100 ML IVCONT ×2 (01:57→09:34)
[2023-12-31 04:00] VITALS: BP 161/82; PULSE 58; RESP 18; TEMP 36.1; O2SAT 100
[2023-12-31] MEDS: Piperacillin Sodium/Tazobactam 3.375 GM in 0.9 % Sodium Chloride 50 ML IV ×2 (05:53→09:28)
[2023-12-31 06:00] VITALS: BMI 21.8
[2023-12-31 07:15] VITALS: BP 142/74; PULSE 61; RESP 20; TEMP 36.7; O2SAT 95
[2023-12-31 08:34] LABS: Creatinine Clr Calc Pharmacy 105.7; Estimated Glomerular Filt Rate > 60
[2023-12-31 08:35] LABS: Magnesium 1.9 mg/dL (1.6-2.6)
[2023-12-31] MEDS: PHENobarbitaL 15 MG TABLET 45 MG PO (09:27)
[2023-12-31] MEDS: hydrOXYzine HCL 25 MG TABLET PO (09:27)
[2023-12-31] MEDS: Magnesium Oxide 400 MG TABLET 800 MG PO (09:27)
--- NOTE | 2023-12-31 10:44 | PC.NURSE ---
Security confirmed pt's belongings remain in the pod in locker #9
--- NOTE | 2023-12-31 10:59 | PM.DS ---
DS: Providers Provider Date of Service: 12/31/23 Date of admission: 12/28/23 23:59 Date of discharge: 12/31/23 Primary care physician: Unknown Physician Consults: 12/29/23 03:16 Addiction Medicine Routine Consulting Provider: Addiction Covering Reason for consultation: etoh abuse Has provider been notified: Yes 12/29/23 04:13 Addiction Medicine Stat Consulting Provider: Addiction Covering Reason for consultation: overdose Has provider been notified: No 12/29/23 04:14 Consult to Psychiatry Stat Consulting Provider: Psych Covering Reason for consultation: SI, overdose, section 12 Has provider been notified: No 12/31/23 08:40 Consult to Care Team Routine Comment: Reason for consultation: Med clear 12/31/23 08:42 Consult to Psychiatry Routine Consulting Provider: Psych Covering Reason for consultation: Anxiety / schizophrenia Attending physician on discharge: Kathy Paz Discharging clinician: Kathy Paz DS: Diagnosis Discharge Diagnosis (1) Drug overdose: Status: Acute (2) Aspiration into airway: Status: Acute DS: Summary Hospital Course Hospital Course: 53-year-old male with history of? alcohol abuse, alcohol withdrawal with seizures, schizophrenia, adjustment disorder, anxiety /depression? who was brought in by ambulance for a clonidine overdose.? According to EMS, the patient told his therapist over the phone that he took 40 tablets of clonidine 0.1 mg. He became unresponsive and the therapist then called 911. The patient was brought in on a section 12. On arrival to the emergency room, the patient's blood pressure was 117/68, heart rate 70, temp 98.0. O2 Sat 96% on room air.? Laboratory data remarkable for a lipase of 294,?alcohol 300, tox screen positive for buprenorphine and cocaine. Imaging: CT/CT abdomen pelvis w IV con: 1.? There is asymmetric enlargement of the left rectus muscle with an ill-defined low-attenuation collection within the muscle measuring approximately 3.3 x 1.9 x 3.0 cm. This may represent an intramuscular hematoma versus infectious process, correlate clinically. 2.? Punctate focus of nondependent gas in the bladder, correlate with truncation, and urinalysis. 3.? Patchy opacities in the lung bases favoring atelectasis versus aspiration. 4.? Hepatic steatosis. ED course: ?The patient received 3 L normal saline.? He became hypothermic and was placed on a Nava Hugger.? He became hypotensive refractory to IV fluids and was started on Levophed. Hospital course: Patient was admitted to the hospital because of clonidine overdose found to have hypotension -was monitored in ICU:53-year y/o M alcohol abuse with prior alcohol withdrawal, schizophrenia, substance abuse admitted on 12/29/23 with intentional clonidine overdose with hypotension poorly responsive to initial IV fluid resuscitation briefly requiring pressor support and monitored in the intensive care unit. CT scan with rectus she has fluid collection, aspirated by intervention Radiology and noted consists of partially clotted blood, likely rectus sheath hematoma. culture from needle aspiration of hematoma -no growth @2 days,In addition patient was treated for alcohol withdrawal with phenobarb protocol, CIWA is 0. Patient also has drug use history on? Suboxone injection gets every few weeks, Addiction Team is following. Patient is still very anxious -will likely benefit from Addiction Team follow-up and may need a Suboxone.given dose subaxone. Addiction is on board and psych is aware. hypomagenesemia -repleted and resolved , check bmp and magnesium in 1 week.continue magnesium 800 mg daily until repeat labs. In addition patient also had mild fever and cough and abdominal CT shows aspiration pneumonia: Patient was started on Zosyn now switched to Augmentin for 5 more days. Above management discussed with the psych in Addiction detail length, assessment plan coordination time spent 40 minute. Time Attestation Total time managing care of this patient today: 40 mintues. Discharge Coordination Time (in mins): 40 min Quality: Safe Use of Opioids Does Pt have an Active Cancer Diagnosis on the Problem List?: No Quality: Stroke Does the patient have a stroke diagnosis?: No Physical Exam Vital Signs: Vital Signs: Last Vital Signs Temp 98.0 F 12/31/23 07:15 Pulse 61 12/31/23 07:15 Resp 20 12/31/23 07:15 BP 142/74 H 12/31/23 07:15 Pulse Ox 95 12/31/23 07:15 O2 Del Method Room Air 12/31/23 07:15 O2 Flow Rate 2 12/28/23 23:24 BMI result Body Mass Index 21.8 Appearance: Alert.? Oriented X3.? cvs: rrr, [id number] , no murmur res: clear to auscultation ,no rhonchii or wheezing abd: no rebound or guarding ,nt, bs present. hemtoma area -no flactulant , no discharge or pain or erythema ext pulses present , no cyanosis. neuro: axo3 , nonfocal. DS: Data Data Completed and Pending Completed studies during hospitalization [Text1]: Procedures Detoxification Services for Substance Abuse Treatment (10/28/21) Labs on day of discharge: Laboratory Results - last 24 hr 12/31/23 07:54 Creatinine 0.77 Estim Creat Clear Calc 105.7 Estimated GFR > 60 Magnesium 1.9 Preliminary micro results at discharge 12/29/23 12:41 Anaerobic Culture - Preliminary Abdomen - Abdominal No growth to date. Imaging Chest x-ray: Radiologist's impression: ITS Impressions Abdomen/Pelvis CT 12/28/23 23:47 IMPRESSION: 1. There is asymmetric enlargement of the left rectus muscle with an ill-defined low-attenuation collection within the muscle measuring approximately 3.3 x 1.9 x 3.0 cm. This may represent an intramuscular hematoma versus infectious process, correlate clinically. 2. Punctate focus of nondependent gas in the bladder, correlate with truncation, and urinalysis. 3. Patchy opacities in the lung bases favoring atelectasis versus aspiration. 4. Hepatic steatosis. Fleischner guidelines were followed. Electronically signed by: Zane Cano MD 12/29/2023 01:16 AM EDT Discharge Plan Discharge Anticipated Discharge Date/Time: 12/31/23 10:36 Patient Disposition: Xfer Psychiatric Hosp Discharge Diagnosis: clonidine overdose Referrals: Physician,Unknown J [Primary Care Provider] - 1 Week Discharge Medications: New magnesium oxide 400 mg (241.3 mg magnesium) Tablet 800 mg PO DAILY Qty: 1 0RF ondansetron 4 mg Tablet,Disintegrating 4 mg translingual Q6H PRN (Reason: Nausea And Vomiting) Qty: 1 0RF amoxicillin-pot clavulanate 875-125 mg Tablet 1 tab PO BID Qty: 10 0RF Discharge Orders: Discharge Order (Routine); Ordered 12/31/23 Ordered By: Kathy Paz Diet: Advance to usual diet Activity on Discharge: As tolerated Stand Alone Forms: Patient Portal Discharge page Print Language: Lithuanian Plan of Treatment: Patient was admitted to the hospital because of clonidine overdose found to have hypotension -was monitored in ICU:53-year y/o M alcohol abuse with prior alcohol withdrawal, schizophrenia, substance abuse admitted on 12/29/23 with intentional clonidine overdose with hypotension poorly responsive to initial IV fluid resuscitation briefly requiring pressor support and monitored in the intensive care unit. CT scan with rectus she has fluid collection, aspirated by intervention Radiology and noted consists of partially clotted blood, likely rectus sheath hematoma. In addition patient was treated for alcohol withdrawal with phenobarb protocol, CIWA is 0. Patient also has drug use history on? Suboxone injection gets every few weeks, Addiction Team is following. Patient is still very anxious -will likely benefit from Addiction Team follow-up and may need a Suboxone.given i dose subaxone. hypomagenesemia -repleted and resolved , check bmp and magnesium in 1 week.continue magnesium 800 mg daily until repeat labs. In addition patient also had mild fever and cough and abdominal CT shows aspiration pneumonia: Patient was started on Zosyn now switched to Augmentin for 5 more days.
[2023-12-31] MEDS: Buprenorphine/Naloxone 8/2 mg FILM 1 FILM SUBLINGUAL (11:04)
[2023-12-31] MEDS: diphenhydrAMINE HCL 25 MG CAPSULE 50 MG PO (11:04)
--- NOTE | 2023-12-31 11:49 | MHC.CM.PN ---
PT WILL TRANSFER TO INPATIENT PSYCH TODAY
--- NOTE | 2023-12-31 13:15 | PC.NURSE ---
Pt in alert and oriented. Care team (Kaci) update patient on section 12 hold and inpatient psych transfer. Patient quickly escalated with agitation being vocally frustrated using fowl language directed toward staff. Patient stated he is refusing to for to inpatient psych and threaten to leave. Patient was explained he was on a section 12 and therefore his safety can not leave. Security called at 10:30 am to assist with agitated patient. Nursing Instructor [employer] called to assist with expediting inpatient bed on [facility]. Doctor updated on situation and provided medication to help with patient agitation and anxiety. See Medical Mar for administration. At 12:30 patient discharged to nurse Stacy RN with it security administrator to [facility].
== END 2023-12-31 12:35 | DRG 750 ==
LOC: HO.ED 12-29 00:08 → HO.EDOVER 12-29 00:16 → HO.ICU 12-29 02:12 → HO.IMC 12-29 18:08
PROVIDERS: Internal Medicine Pulmonary Disease; Admitting Provider Nurse Practitioner Family; Emergency Provider Emergency Medicine; Visit Provider Internal Medicine
DX: F20.9 Schizophrenia, unspecified (principal); J69.0 Pneumonitis due to inhalation of food and vomit; I95.2 Hypotension due to drugs; K76.0 Fatty (change of) liver, not elsewhere classified; T46.5X2A Poisoning by other antihypertensive drugs, intentional self-harm, initial encounter; S30.1XXA Contusion of abdominal wall, initial encounter; X58.XXXA Exposure to other specified factors, initial encounter; F10.129 Alcohol abuse with intoxication, unspecified; R00.1 Bradycardia, unspecified; F11.20 Opioid dependence, uncomplicated; F10.139 Alcohol abuse with withdrawal, unspecified; Z20.822 Contact with and (suspected) exposure to COVID-19; Y90.8 Blood alcohol level of 240 mg/100 ml or more; Z79.899 Other long term (current) drug therapy
CPT/HCPCS: 10005; 36415; 74177; 80048; 80053; 80076; 80143; 80179; 80307; 81001; 82565; 82803; 82947; 83690; 83735; 84100; 84443; 84484; 85025; 85027; 87070; 87073; 87205; 87633; 87635; 93005; 99285; J0692; J1644; J2543; J2560; J3370; J3475; J7120; Q9967; S9485

== ENCOUNTER 2023-12-28 23:59 | Outpatient (BNV) | payer MEDICAID, SELFPAY | END 2023-12-29 12:54 | PROVIDERS: Admitting Provider Nurse Practitioner Family; Emergency Provider Emergency Medicine; Visit Provider Student in an Organized Health Care Education/Training Program | DX: M79.81 Nontraumatic hematoma of soft tissue (principal) | CPT/HCPCS: 49405 ==

== ENCOUNTER → 2023-12-28 23:59 | Outpatient (BNV) | payer MEDICAID, SELFPAY | PROVIDERS: Admitting Provider Nurse Practitioner Family; Emergency Provider Emergency Medicine; Visit Provider Internal Medicine | DX: T50.902A Poisoning by unspecified drugs, medicaments and biological substances, intentional self-harm, initial encounter (principal); T17.908A Unspecified foreign body in respiratory tract, part unspecified causing other injury, initial encounter | CPT/HCPCS: 99231; 99239; 99499 ==

== ENCOUNTER → 2023-12-28 23:59 | Outpatient (BNV) | payer MEDICAID, SELFPAY | PROVIDERS: Admitting Provider Nurse Practitioner Family; Emergency Provider Emergency Medicine; Visit Provider Nurse Practitioner Family | DX: T50.902A Poisoning by unspecified drugs, medicaments and biological substances, intentional self-harm, initial encounter (principal); I95.2 Hypotension due to drugs; R00.1 Bradycardia, unspecified | CPT/HCPCS: 99233 ==

== ENCOUNTER → 2023-12-28 23:59 | Outpatient (BNV) | payer MEDICAID, SELFPAY | PROVIDERS: Admitting Provider Nurse Practitioner Family; Emergency Provider Emergency Medicine; Visit Provider Internal Medicine Pulmonary Disease | DX: T50.901A Poisoning by unspecified drugs, medicaments and biological substances, accidental (unintentional), initial encounter (principal) | CPT/HCPCS: 99221 ==

== ENCOUNTER 2023-12-31 13:14 | Inpatient (IN) | payer OTHER, SELFPAY ==
--- NOTE | 2023-12-31 11:30 | HO.PSYADMNOT ---
HPI Date of Service: 01/01/24 Chief Complaint: Depression Alcohol Abuse Sources of Information: patient interviewed, chart reviewed and crisis/core team assessment reviewed HPI Subjective Notes: 3 Day Healthcare Proxy: No Guardianship: No Medical Problems Affecting Mental Status: No Narrative: 53 yo wm reports he hurt a muscle with swelling. 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) he didn't want to lose his job so - he started etoh/nips and that lead to od on clonidine- he denies it was planned out- Apparently on phone with his therapist (RADHA) he nodded out and they called ambulance- He denies past psychiatric history though he was hospitalized before- denies prior suicide attempt [facility] seen for anxiety on hydroxyzine and clonidine- doesn't know prescriber USed heroin for 6 months got hooked and now been on MAT which he wants to get off of- was tapering injectable sub to every 6 wks whenthis thing happened Past Psychiatric History: 1 prior psych hosp would not elaborate Medical Evaluation Reviewed: Yes (was seen thru imc after od) aspiration pneumonia thought- was put on abiotics- he is having diarrhea now and doesn't want to continue abiotics- [facility] Medical History (Updated 01/01/24 @ 19:40 by Kaci Perez MD) Chronic back pain Drug dependence Depression Gout Alcohol withdrawal seizure Anxiety Alcohol abuse Seizure disorder Adjustment disorder Schizophrenia Alcohol abuse Depression Anxiety Family History: denies family hx bipolar or suicides Social History: works at physical labor Substance History: MAT for opiates, hx etoh, had been mostly sober- Trauma History: likely - not reviewed he is too irritable to barely get hx from , annoyed to be here Diagnostics Labs 01/01/24 08:28 Meds/Allergies Meds Narrative: hydroxyzine, clonidine - Allergies Allergies Allergy/AdvReac Type Severity Reaction Status Date / Time No Known Allergies Allergy Verified 12/28/23 17:20 [No Known Allergies*] Mental Status Exam Mental Status Exam Patient Appearance: Fatigued and Unkempt Patient Orientation: Person, Place, Time and Situation Level of Consciousness: Awake Patient Behavior: Guarded and Resistive to Care Mood Description: Angry Affect Description: Angry Patient Cognition Impaired: No Ability to Follow Directions: Fair Speech Pattern: Clear Hallucinations: None Delusions: Not Present and Paranoid Ideation (?) Thought Process: Intact and Goal Oriented Thought Content: positive for Evasive Depressive Symptoms: Muscle Tension and Increased Irritability Judgement: Fair Assessment & Plan Assessment & Plan (1) Drug overdose: Status: Acute Qualifiers: Encounter type: initial encounter Injury intent: intentional self-harm Qualified Code(s): T50.902A - Poisoning by unspecified drugs, medicaments and biological substances, intentional self-harm, initial encounter Code(s): T50.901A - Poisoning by unspecified drugs, medicaments and biological substances, accidental (unintentional), initial encounter Assessment and Plan: not really accidental - (2) Aspiration into airway: Status: Acute Code(s): T17.908A - Unspecified foreign body in respiratory tract, part unspecified causing other injury, initial encounter Assessment and Plan: ? refusing abiotics now- diarrhea ? of stool for checking cdiff (3) Opiate dependence: Status: Acute Code(s): F11.20 - Opioid dependence, uncomplicated Assessment and Plan: wants to taper off offered [facility] consult but pt has own at his outpatient treatment- Plan r/o mood do - given irritability but might be post od reaction- or personality or substance cravings- only wants 1 suboxone /day to cover though refused pm dose yesterday I think he will struggle to engage in care- Patient educated on: medication risk/benefits and medical condition Informed Consent: further education needed Reason for continued inpatient stay Substantial Risk for: harm to self, rapid decompensation and med/psych decompensation Statement Statement: I have reviewed the history and physical and performed a pertinent examination on my patient. No changes have occurred unless specified. If the History and Physical was not performed prior to admission, the Hospitalist's service will be consulted for completing the admission physical. Time Spent With Patient Time: Total time managing care of this patient today ____ minutes.
[2023-12-31] MEDS: Ondansetron ODT 8 MG TAB.RAPDIS TRANSLINGU (13:20)
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
[2023-12-31] MEDS: Magnesium Oxide 400 MG TABLET PO (18:10)
[2023-12-31] MEDS: Diphenoxylate/Atrop 2.5/0.025 TABLET 1 TAB PO ×2 (18:10→23:40)
[2023-12-31 19:31] VITALS: BMI 21.9
[2023-12-31 19:45] VITALS: BP 100/55; PULSE 54; RESP 14; TEMP 36.9; O2SAT 95
[2023-12-31] MEDS: PHENobarbitaL 15 MG TABLET 45 MG PO (20:21)
[2023-12-31] MEDS: hydrOXYzine HCL 25 MG TABLET PO (20:26)
[2024-01-01 07:20] VITALS: BP 112/55; PULSE 52; RESP 12; TEMP 36.6; O2SAT 96
[2024-01-01] MEDS: Magnesium Oxide 400 MG TABLET PO ×2 (08:35→18:19)
[2024-01-01] MEDS: PHENobarbitaL 30 MG TABLET PO ×2 (08:35→20:24)
[2024-01-01] MEDS: Buprenorphine/Naloxone 8/2 mg FILM 1 FILM SUBLINGUAL (08:35)
[2024-01-01] MEDS: Diphenoxylate/Atrop 2.5/0.025 TABLET 1 TAB PO (08:35)
[2024-01-01 09:08] LABS: Alanine Aminotransferase 18 U/L (0-40); Albumin Level 3.7 g/dL (3.5-5.0); Alkaline Phosphatase 99 U/L (39-117); Anion Gap 12 (12-20); Aspartate Amino Transferase 24 U/L (5-37); Bilirubin Total 0.4 mg/dL (0.0-1.0); Blood Urea Nitrogen 10 mg/dL (9-16); Calcium 8.6 mg/dL (8.4-10.2); Carbon Dioxide 29 mmol/L (22-29); Chloride 102 mmol/L (96-108); Cholesterol 155 mg/dL (<200); Creatinine Clr Calc Pharmacy 90.8; Estimated Glomerular Filt Rate > 60; Glucose Fasting 82 mg/dL (60-99); HDL Cholesterol 69 mg/dL (>40); LDL Cholesterol Calculated 62 mg/dL (<100); Potassium 3.5 mmol/L (3.3-5.1); Sodium 139 mmol/L (135-145); Total Protein 6.4 g/dL (6.5-8.0); Triglycerides 123 mg/dL (<150)
[2024-01-01] MEDS: Diphenoxylate/Atrop 2.5/0.025 TABLET 2 TAB PO ×2 (14:31→18:19)
[2024-01-01 19:27] VITALS: BP 150/77; PULSE 51; TEMP 36.4; O2SAT 98
[2024-01-01] MEDS: hydrOXYzine HCL 25 MG TABLET PO (20:24)
[2024-01-02 07:33] VITALS: BP 174/83; PULSE 60; TEMP 36.6; O2SAT 100
[2024-01-02] MEDS: PHENobarbitaL 30 MG TABLET PO (09:02)
[2024-01-02] MEDS: Magnesium Oxide 400 MG TABLET PO ×2 (09:02→18:25)
[2024-01-02] MEDS: Buprenorphine/Naloxone 8/2 mg FILM 1 FILM SUBLINGUAL (09:04)
[2024-01-02] MEDS: Diphenoxylate/Atrop 2.5/0.025 TABLET 2 TAB PO ×3 (09:25→22:21)
[2024-01-02 19:14] VITALS: BP 126/62; PULSE 54; RESP 16; TEMP 36.5; O2SAT 100
[2024-01-02] MEDS: hydrOXYzine HCL 25 MG TABLET PO (20:53)
[2024-01-02] MEDS: traZODone HCL 50 MG TABLET PO ×2 (20:53→22:21)
[2024-01-03 07:25] VITALS: BP 118/62; PULSE 56; RESP 18; TEMP 36.9; O2SAT 98
[2024-01-03 08:00] VITALS: BP 118/62; PULSE 56; RESP 18; TEMP 36.9; O2SAT 98
[2024-01-03] MEDS: Magnesium Oxide 400 MG TABLET PO ×2 (09:09→17:06)
[2024-01-03] MEDS: PHENobarbitaL 30 MG TABLET PO (09:10)
[2024-01-03] MEDS: Buprenorphine/Naloxone 8/2 mg FILM 1 FILM SUBLINGUAL (09:11)
--- NOTE | 2024-01-03 10:10 | HO.PSYCHPN ---
Subjective Subjective Date of Service: 01/02/24 Reason For Visit: Depression Alcohol Abuse Subjective Notes: Conditional Voluntary and 3 Day Interim History: Pt slept through the night. He continues to denied any thoughts of wanting to hurt himself or others. No psychosis or delusions. He reports being on the unit is not helpful and wants to get back to work. He reports OD was impulsive and he was intoxicated. He was guarded about collateral information but discussed seriousness of OD and events leading to this admission. Pt then agree to let team speak with his therapist who was the person he called when he OD and she called 911 for wellness check. He also agreed for us to speak with family. Overall he does seem to minimize events leading to this admission. Diagnostics Vital Signs (24Hr): Vital Signs - 24 hr 01/02/24 19:14 01/03/24 07:25 01/03/24 08:00 Temperature 97.7 F 98.5 F 98.5 F Pulse Rate 54 56 56 Respiratory Rate 16 18 18 Blood Pressure 126/62 118/62 118/62 Pulse Oximetry 100 98 98 Oxygen Delivery Method Room Air Room Air Room Air BMI result Body Mass Index 21.9 Labs 01/01/24 08:28 Medications Medications Current Medications Acetaminophen (Acetaminophen 325 Mg Tablet) 650 mg PO Q6H PRN PRN Reason: Headache/Pain Mild Scale (1-3) Al Hydroxide/Mg Hydroxide (Magnesium Hydrox/Alum Hydrox 30 Ml Oral.Susp) 30 ml PO Q6H PRN PRN Reason: Heartburn/Nausea Amoxicillin/Clavulanate Potassium (Amoxicillin/Potassium Clav 875 Mg Tablet) 875 mg PO BID [facility] Last Admin: 01/03/24 09:44 Dose: Not Given Buprenorphine/Naloxone (Buprenorphine/Naloxone 8/2 Mg Film) 1 film SUBLINGUAL DAILY [facility] Last Admin: 01/03/24 09:11 Dose: 1 film Diphenoxylate HCl/Atropine (Diphenoxylate/Atrop 2.5/0.025 Tablet) 2 tab PO QID PRN PRN Reason: Diarrhea Last Admin: 01/02/24 22:21 Dose: 2 tab Hydroxyzine HCl (Hydroxyzine Hcl 25 Mg Tablet) 25 mg PO Q6H PRN PRN Reason: Anxiety Last Admin: 01/02/24 20:53 Dose: 25 mg Magnesium Hydroxide (Milk Of Magnesia 30 Ml Oral.Susp) 30 ml PO DAILY PRN PRN Reason: Constipation Magnesium Oxide (Magnesium Oxide 400 Mg Tablet) 400 mg PO BIDPC PRETTY Last Admin: 01/03/24 09:09 Dose: 400 mg Nicotine Polacrilex (Nicotine Polacrilex 2 Mg Gum) 2 mg BUCCAL Q2H PRN PRN Reason: Nicotine Cravings Ondansetron HCl (Ondansetron Odt 8 Mg Tab.Rapdis) 8 mg TRANSLINGU Q8H PRN PRN Reason: Nausea and Vomiting Last Admin: 12/31/23 13:20 Dose: 8 mg Trazodone HCl (Trazodone Hcl 50 Mg Tablet) 50 mg PO BEDTIME MRX1 PRN PRN Reason: Insomnia Last Admin: 01/02/24 22:21 Dose: 50 mg Allergies Allergies Allergy/AdvReac Type Severity Reaction Status Date / Time No Known Allergies Allergy Verified 12/28/23 17:20 [No Known Allergies*] Assessment & Plan Assessment & Plan (1) MDD (major depressive disorder), recurrent episode, moderate: Status: Acute Code(s): F33.1 - Major depressive disorder, recurrent, moderate Plan 01/01 guarded and superficially cooperative, minimizes events leading to this admission, denies SI/HI. requests that he is discharge soon, finally agreed to team communicating with therapist and family. Patient educated on: diagnosis, medication risk/benefits and substance abuse Informed Consent: understands Reason for continued inpatient stay Substantial Risk for: harm to self Time Spent With Patient Time: Total time managing care of this patient today ____ minutes.
[2024-01-03] MEDS: hydrOXYzine HCL 25 MG TABLET PO ×2 (13:31→20:11)
[2024-01-03 20:00] VITALS: BP 163/93; PULSE 66; RESP 16; TEMP 36.5; O2SAT 100
[2024-01-03] MEDS: traZODone HCL 50 MG TABLET PO ×2 (20:11→21:20)
[2024-01-03] MEDS: Diphenoxylate/Atrop 2.5/0.025 TABLET 2 TAB PO (20:17)
--- NOTE | 2024-01-03 22:25 | HO.PSYCHPN ---
Subjective Subjective Date of Service: 01/03/24 Reason For Visit: Depression Alcohol Abuse Interim History: initially calm, polite, cooperative. reports he only relapsed for 2 days on alcohol and has been using cocaine QOwk. on being told he would not be discharging today became loud, aggressive, verbally abusive, menacing. per staff, 3-day up tomorrow. withdrawn, guarded. refusing augmentin 2/2 diarrhea. Mental Status Exam Mental Status Exam Narrative: adequately dressed and groomed. initially cooperative, ultimately not. calm to agitated. speech WNL to loud yelling. thoughts linear and questionably logical. affect full range, labile. mood euthymic to angry. denies SI. no HI/AVH expressed. Diagnostics Vital Signs (24Hr): Vital Signs - 24 hr 01/03/24 07:25 01/03/24 08:00 Temperature 98.5 F 98.5 F Pulse Rate 56 56 Respiratory Rate 18 18 Blood Pressure 118/62 118/62 Pulse Oximetry 98 98 Oxygen Delivery Method Room Air Room Air BMI result Body Mass Index 21.9 Labs 01/01/24 08:28 Medications Medications Current Medications Acetaminophen (Acetaminophen 325 Mg Tablet) 650 mg PO Q6H PRN PRN Reason: Headache/Pain Mild Scale (1-3) Al Hydroxide/Mg Hydroxide (Magnesium Hydrox/Alum Hydrox 30 Ml Oral.Susp) 30 ml PO Q6H PRN PRN Reason: Heartburn/Nausea Amoxicillin/Clavulanate Potassium (Amoxicillin/Potassium Clav 875 Mg Tablet) 875 mg PO BID [facility] Last Admin: 01/03/24 20:13 Dose: Not Given Buprenorphine/Naloxone (Buprenorphine/Naloxone 8/2 Mg Film) 1 film SUBLINGUAL DAILY [facility] Last Admin: 01/03/24 09:11 Dose: 1 film Diphenoxylate HCl/Atropine (Diphenoxylate/Atrop 2.5/0.025 Tablet) 2 tab PO QID PRN PRN Reason: Diarrhea Last Admin: 01/03/24 20:17 Dose: 2 tab Hydroxyzine HCl (Hydroxyzine Hcl 25 Mg Tablet) 25 mg PO Q6H PRN PRN Reason: Anxiety Last Admin: 01/03/24 20:11 Dose: 25 mg Magnesium Hydroxide (Milk Of Magnesia 30 Ml Oral.Susp) 30 ml PO DAILY PRN PRN Reason: Constipation Magnesium Oxide (Magnesium Oxide 400 Mg Tablet) 400 mg PO BIDPC PRETTY Last Admin: 01/03/24 17:06 Dose: 400 mg Nicotine Polacrilex (Nicotine Polacrilex 2 Mg Gum) 2 mg BUCCAL Q2H PRN PRN Reason: Nicotine Cravings Ondansetron HCl (Ondansetron Odt 8 Mg Tab.Rapdis) 8 mg TRANSLINGU Q8H PRN PRN Reason: Nausea and Vomiting Last Admin: 12/31/23 13:20 Dose: 8 mg Trazodone HCl (Trazodone Hcl 50 Mg Tablet) 50 mg PO BEDTIME MRX1 PRN PRN Reason: Insomnia Last Admin: 01/03/24 21:20 Dose: 50 mg Allergies Allergies Allergy/AdvReac Type Severity Reaction Status Date / Time No Known Allergies Allergy Verified 12/28/23 17:20 [No Known Allergies*] Assessment & Plan Assessment & Plan (1) MDD (major depressive disorder), recurrent episode, moderate: Status: Acute Code(s): F33.1 - Major depressive disorder, recurrent, moderate Plan 01/01 guarded and superficially cooperative, minimizes events leading to this admission, denies SI/HI. requests that he is discharge soon, finally agreed to team communicating with therapist and family. 01/02: explosively labile when not getting his way. verbally aggressive, abusive, menacing. lying regarding his thought process and actions leading up to his overdose (per texts sent to his therapist, he knowingly took clonidine overdose with the intention of ending his life). 3-day up tomorrow. Reason for continued inpatient stay Substantial Risk for: harm to self Time Spent With Patient Time: Total time managing care of this patient today __35__ minutes.
[2024-01-04 07:27] VITALS: BP 115/57; PULSE 56; RESP 16; TEMP 36.7; O2SAT 97
[2024-01-04] MEDS: Buprenorphine/Naloxone 8/2 mg FILM 1 FILM SUBLINGUAL (09:03)
--- NOTE | 2024-01-04 10:48 | PM.PSYDC ---
DS: Providers Provider Date of Service: 01/04/24 Date of admission: 12/31/23 13:14 Primary care physician: Unknown Physician DS: Diagnosis Discharge Diagnosis (1) MDD (major depressive disorder), recurrent episode, moderate: Status: Acute DS: Medications Discharge Medications Home Medications: Previous Rx's ?Medication ?Instructions ?Recorded magnesium oxide 400 mg (241.3 mg 800 mg (2 x 400 mg (241.3 mg 12/31/23 magnesium) tablet magnesium)) PO DAILY #1 tab ondansetron 4 mg disintegrating 4 mg translingual Q6H PRN Nausea 12/31/23 tablet And Vomiting #1 tab buprenorphine 2 mg-naloxone 0.5 mg 1 film sublingual DAILY #0 ea 01/04/24 sublingual film (Suboxone) hydroxyzine HCl 25 mg tablet 25 mg PO Q6H PRN Anxiety 30 days 01/04/24 #120 tabs mirtazapine 15 mg tablet (Remeron) 15 mg PO BEDTIME 30 days #30 tabs 01/04/24 naloxone 4 mg/actuation nasal 4 mg intranasal Q2M PRN opioid 01/04/24 spray (Narcan) overdose 1 day #2 ea Mental Status Exam Mental Status Exam Narrative: adequately dressed and groomed. cooperative. calm. speech WNL. thoughts linear and logical. affect full range, non-labile. mood fair. denies SI/SIBI/HI/AVH. Data Data Completed and Pending Completed studies during hospitalization [Text1]: 01/01/24 08:28 Sodium 139 Potassium 3.5 Chloride 102 Carbon Dioxide 29 Anion Gap 12 BUN 10 Creatinine 0.85 Estim Creat Clear Calc 90.8 Estimated GFR > 60 Fasting Glucose 82 Calcium 8.6 D Total Bilirubin 0.4 AST 24 ALT 18 Alkaline Phosphatase 99 Total Protein 6.4 L Albumin 3.7 Triglycerides 123 Cholesterol 155 LDL Cholesterol, Calc 62 HDL Cholesterol 69 DS: Summary Hospital Course Hospital Course: per 12/30 admission note: HPI Subjective Notes: 3 Day Healthcare Proxy: No Guardianship: No Medical Problems Affecting Mental Status: No Narrative: 53 yo wm reports he hurt a muscle with swelling. 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) he didn't want to lose his job so - he started etoh/nips and that lead to od on clonidine- he denies it was planned out- Apparently on phone with his therapist ([facility]) he nodded out and they called ambulance- He denies past psychiatric history though he was hospitalized before- denies prior suicide attempt [facility] seen for anxiety on hydroxyzine and clonidine- doesn't know prescriber USed heroin for 6 months got hooked and now been on MAT which he wants to get off of- was tapering injectable sub to every 6 wks whenthis thing happened Past Psychiatric History: 1 prior psych hosp would not elaborate Medical Evaluation Reviewed: Yes (was seen thru imc after od) aspiration pneumonia thought- was put on abiotics- he is having diarrhea now and doesn't want to continue abiotics- [facility] Medical History (Updated 01/01/24 @ 19:40 by Kaci Perez MD) Chronic back pain Drug dependence Depression Gout Alcohol withdrawal seizure Anxiety Alcohol abuse Seizure disorder Adjustment disorder Schizophrenia Alcohol abuse Depression Anxiety Family History: denies family hx bipolar or suicides Social History: works at [employer] Substance History: MAT for opiates, hx etoh, had been mostly sober- Trauma History: likely - not reviewed he is too irritable to barely get hx from , annoyed to be here PT transfered from medical unit after OD on Clonidine #20-40 pt denies was suicide attempt however was on phone with [facility] therapist when he did so - denies current depression, is irritable of mood. Denies current si - dx Mood do nos - F39 Precis: 12/30: r/o mood do - given irritability but might be post od reaction- or personality or substance cravings- only wants 1 suboxone day to cover though refused pm dose yesterday. I think he will struggle to engage in care- 01/01 guarded and superficially cooperative, minimizes events leading to this admission, denies SI/HI. requests that he is discharge soon, finally agreed to team communicating with therapist and family. 01/02: explosively labile when not getting his way. verbally aggressive, abusive, menacing. lying regarding his thought process and actions leading up to his overdose (per texts sent to his therapist, he knowingly took clonidine overdose with the intention of ending his life). 3-day up tomorrow. 01/03: in better behavioral control today. seen with POONAM Damon and medical student. confronted with texts he had sent his therapist. still disputed his true intention, explained away saying he was very intoxicated and did not even recall sending those texts. future-oriented, discussing plans to return to work and keep his apartment, cooperative with aftercare planning. assuring safety. discharged as pt was felt not to be committable. Time Spent with Patient Time attestation: Total time managing care of this patient today __35__ minutes. Discharge Plan Discharge Anticipated Discharge Date/Time: 01/04/24 12:00 Patient Disposition: Home, Self-Care Discharge Diagnosis: Mood Disorder NOS Opioid Use Disorder Cocaine Use Disorder Alcohol Use Disorder Referrals: Therapist: Edith Wilkinson ([facility]) [Other] - 01/06/24 4:30 pm (Telehealth appointment) [facility] [Provider Group] - 1 Week ([facility] was added to patients chart. Please call [phone] for follow up appt.) Discharge Medications: New hydroxyzine HCl 25 mg Tablet 25 mg PO Q6H PRN (Reason: Anxiety) 30 Days Qty: 120 0RF mirtazapine [Remeron] 15 mg tablet 15 mg PO BEDTIME 30 Days Qty: 30 0RF buprenorphine-naloxone [Suboxone] 2-0.5 mg Film 1 film sublingual DAILY Qty: 0 0RF naloxone [Narcan] 4 mg/actuation spray,non-aerosol 4 mg intranasal Q2M PRN (Reason: opioid overdose) 1 Days Qty: 2 0RF Rx Instructions: spray 1 dose into ONE nostril; alternate nostrils w each dose until help arrives Continued magnesium oxide 400 mg (241.3 mg magnesium) Tablet 800 mg PO DAILY Qty: 1 0RF ondansetron 4 mg Tablet,Disintegrating 4 mg translingual Q6H PRN (Reason: Nausea And Vomiting) Qty: 1 0RF Discontinued amoxicillin-pot clavulanate 875-125 mg Tablet 1 tab PO BID Qty: 10 0RF Discharge Orders: Discharge Order (Routine); Ordered 01/04/24 Ordered By: Jorje Nails Diet: Advance to usual diet Activity on Discharge: As tolerated Stand Alone Forms: Patient Portal Discharge page, Community Support Print Language: Sri Lankan Care Plan Goals: remain safe and stable in the outpatient treatment setting Health Concerns: rectus sheath hematoma Plan of Treatment: take medications as prescribed, attend appointments as scheduled Assessment: not at imminent risk of harm to self or others Discharge Date/Time: 01/04/24 13:15
== END 2024-01-04 13:15 | disposition home or self-care (01) | DRG 751 ==
PROVIDERS: Admitting Provider Psychiatry & Neurology Psychiatry; Visit Provider Psychiatry & Neurology Psychiatry
DX: F33.1 Major depressive disorder, recurrent, moderate (principal); F10.90 Alcohol use, unspecified, uncomplicated; F11.20 Opioid dependence, uncomplicated; T46.5X1A Poisoning by other antihypertensive drugs, accidental (unintentional), initial encounter; F14.90 Cocaine use, unspecified, uncomplicated; Z79.899 Other long term (current) drug therapy
CPT/HCPCS: 36415; 80053; 80061

== ENCOUNTER → 2023-12-31 13:14 | Outpatient (BNV) | payer OTHER, SELFPAY | PROVIDERS: Admitting Provider Psychiatry & Neurology Psychiatry; Visit Provider Social Worker | DX: F33.1 Major depressive disorder, recurrent, moderate (principal) | CPT/HCPCS: 99232 ==

== ENCOUNTER 2024-01-10 10:07 | Emergency (ER) | payer MEDICAID, SELFPAY ==
[2024-01-10 10:10] VITALS: BP 174/89; PULSE 64; RESP 18; TEMP 36.6; O2SAT 98; BMI 22.5
--- NOTE | 2024-01-10 10:48 | ED.GENADULT ---
HPI - General Adult General Chief complaint: General Medical Stated complaint: Returning for work clearance Time Seen by Provider: 01/10/24 10:21 Source: patient and RN notes reviewed Mode of arrival: ambulatory Limitations: no limitations History of Present Illness ED Provider: Ailyn Santacruz PA-C HPI narrative: This is a 53-year-old male, with a past medical history of alcohol abuse, schizophrenia, adjustment disorder, anxiety and depression, who presents emergency department for work note. Patient states that he was seen in the emergency room where he was diagnosed with a torn muscle in his stomach and would like to return back to work. He states that he is feeling well and has no current complaints. He does lift at his work. He did not follow-up with the interventional radiologist as he was not given any instructions on when he could return back to work. No fevers or chills. No chest pain or shortness for breath. No other complaints or concerns at this time MD complaint: Work note Related Data Previous Rx's ?Medication ?Instructions ?Recorded magnesium oxide 400 mg (241.3 mg 800 mg (2 x 400 mg (241.3 mg 12/31/23 magnesium) tablet magnesium)) PO DAILY #1 tab ondansetron 4 mg disintegrating 4 mg translingual Q6H PRN Nausea 12/31/23 tablet And Vomiting #1 tab buprenorphine 2 mg-naloxone 0.5 mg 1 film sublingual DAILY #0 ea 01/04/24 sublingual film (Suboxone) hydroxyzine HCl 25 mg tablet 25 mg PO Q6H PRN Anxiety 30 days 01/04/24 #120 tabs mirtazapine 15 mg tablet (Remeron) 15 mg PO BEDTIME 30 days #30 tabs 01/04/24 naloxone 4 mg/actuation nasal 4 mg intranasal Q2M PRN opioid 01/04/24 spray (Narcan) overdose 1 day #2 ea Allergies Allergy/AdvReac Type Severity Reaction Status Date / Time No Known Allergies Allergy Verified 01/10/24 10:12 [No Known Allergies*] Review of Systems Review of Systems: Yes all other systems are reviewed and are negative Constitutional: Constitutional: Reports as per [facility] Past Medical History Attestation statement: The following information was validated with the patient. Medical History Chronic back pain Drug dependence Depression Gout Alcohol withdrawal seizure Anxiety Alcohol abuse Seizure disorder Adjustment disorder Schizophrenia Alcohol abuse Depression Anxiety Family History Family History Other Cancer Dementia Stroke Social History Social History Household Members: None Housing: Apartment Do you presently have visiting nurse or other home services: No Alcohol intake: current Alcohol intake frequency: 3 or more drinks per day Alcohol type: hard liquor Comment: 1:1 Patient Tobacco Use Status: Refuse Tobacco use screen Tobacco use type: Cigarette Cigarette Packs Per Day: 0.5 Cigarettes Per Day: 10 Second Hand Smoke Exposure: No Substance Use Type: Crack/Cocaine Advance Directives: No Advance Directives Information Provided: Yes Do you have a plan to hurt others: No Plan service: No Current occupational status: other Sexual orientation: Straight/Heterosexual Physical Exam ED Vital Signs: Vital Signs - 24 hr 01/10/24 10:10 01/10/24 11:12 Temperature 98 F 98 F Pulse Rate 64 64 Respiratory Rate 18 18 Blood Pressure 174/89 H 174/89 H Pulse Oximetry 98 98 Oxygen Delivery Method Room Air Room Air BMI result Body Mass Index 22.5 Const General: cooperative, comfortable and no acute distress Orientation/consciousness: patient oriented x3 Limitations: no limitations HENMT Head: Yes normal to inspection, Yes normocephalic and Yes atraumatic Ears: hearing grossly normal bilaterally General nose exam: Normal external nose present Face and sinus: Yes normal facial exam Mouth: Normal oral and palatal mucosa present, oropharynx normal and moist mucous membranes Throat: Yes posterior oropharynx normal Eyes General: appearance normal, both eyes and all related structures Eyelids: Yes eyelids normal Conjunctivae: conjunctivae normal Sclerae: sclerae normal Pupils: Equal, round and reactive pupils present EOM: EOMs intact bilaterally Neck Neck: Yes normal visual inspection, Yes full ROM and Yes no lymphadenopathy Lymphatic: no lymphadenopathy noted Chest Chest palpation & inspection: normal inspection of the chest Resp Effort & Inspection: normal respiratory effort and able to speak in complete sentences Auscultation: clear to auscultation bilaterally, no crackles, no rales, no rhonchi and no wheezes Cardio Rate: regular rate Rhythm: regular rhythm Heart sounds: S1 normal heart sound present and S2 normal heart sound present GI Other: Abdomen is soft, nontender, nondistended, he has scant healing multiple bruises measuring approximately 2 cm incise scattered throughout his lower abdomen. Inspection: Yes normal to inspection Skin General skin exam: no rashes or lesions noted Trauma: no lacerations or abrasions Wounds: no wounds Neuro General: patient oriented x3 and moves all extremities Cranial nerves: Yes Equal, round and reactive pupils present Extrem General: Yes normal to inspection Right upper extremity: normal to inspection Left upper extremity: normal to inspection Right lower extremity: normal to inspection Left lower extremity: normal to inspection Medical Decision Making Medical Decision Making [facility] Narrative: This is a 53-year-old male who presents emergency department for work note. Patient was seen here in the emergency room on 12/28/2023 after an intentional clonidine overdose. He was found to be hypotensive, and had a CT scan which revealed a rectus muscle hematoma. He was admitted to the ICU for a day and was discharged to the floor 1 day later, he was then seen by the interventional radiologist where they aspirated this hematoma. The hospitalist team discharged him on December 31, 2023. Patient states that he would like to return back to work. He was not given any return precautions or return to work instructions. I discussed case with my attending physician, Dr. Luna, who given patient has a hematoma in his abdominis rectus muscle, we can not creatinine him any returned to work precautions as often times this requires 2-4 weeks off from work. I discussed with patient that we are unable to provide him a work note to state that he can return back to work. I advised patient to follow-up with the workman's comp/occupational health facility and/or Interventional Radiology for further recommendations on when he can return back to work. He understands and agrees with plan. Patient stable for discharge Differential Diagnosis Differential Diagnoses: The differential diagnosis associated with the presentation includes Work note, abdominal rectus hematoma, sprain, strain contusion, anxiety, depression External Record Review External record reviewed: Inpatient record See [facility] for further details Discharge Plan Discharge Clinical Impression: Hematoma of rectus sheath Qualifiers: Encounter type: subsequent encounter Qualified Code(s): S30.1XXD - Contusion of abdominal wall, subsequent encounter Patient Disposition: Home, Self-Care Instructions: Contusion in Adults (ED) Additional Instructions: You were seen in the emergency department for a work note. You had this region aspirated by the interventional radiologist. You need to follow-up with them for medical clearance. You may also follow-up with the work shah connection facility as they can also provide you with further details on return to work precautions. We unfortunately are unable to give you medical clearance for work. If any new or worsening symptoms occur including but not limited to chest pain, shortness of breath, abdominal pain, please return for re-evaluation. [phone] Prescriptions: No Action magnesium oxide 400 mg (241.3 mg magnesium) Tablet 800 mg PO DAILY Qty: 1 0RF ondansetron 4 mg Tablet,Disintegrating 4 mg translingual Q6H PRN (Reason: Nausea And Vomiting) Qty: 1 0RF hydroxyzine HCl 25 mg Tablet 25 mg PO Q6H PRN (Reason: Anxiety) 30 Days Qty: 120 0RF mirtazapine [Remeron] 15 mg tablet 15 mg PO BEDTIME 30 Days Qty: 30 0RF buprenorphine-naloxone [Suboxone] 2-0.5 mg Film 1 film sublingual DAILY Qty: 0 0RF naloxone [Narcan] 4 mg/actuation spray,non-aerosol 4 mg intranasal Q2M PRN (Reason: opioid overdose) 1 Days Qty: 2 0RF Rx Instructions: spray 1 dose into ONE nostril; alternate nostrils w each dose until help arrives Referrals: Jake Fowler PA [Physician [employer] Helper] - Stand Alone Forms: Work/School Release Interventions: ED Discharge Assessment Last Done: 01/10/24 11:12 Discharge Date/Time: 01/10/24 11:13 Print Language: Slovenian
[2024-01-10 11:12] VITALS: BP 174/89; PULSE 64; RESP 18; TEMP 36.6; O2SAT 98
== END 2024-01-10 11:13 | disposition home or self-care (01) ==
PROVIDERS: Emergency Provider Emergency Medicine
DX: R10.30 Lower abdominal pain, unspecified (principal); F33.1 Major depressive disorder, recurrent, moderate; F41.9 Anxiety disorder, unspecified
CPT/HCPCS: 99282

== ENCOUNTER 2024-03-19 18:06 | Inpatient (IN) | payer MEDICAID, SELFPAY ==
[2024-03-19 18:19] VITALS: BP 142/86; BP 146/92; PULSE 90; PULSE 94; RESP 18; TEMP 36.6; O2SAT 96; O2SAT 97; BMI 21.1
--- NOTE | 2024-03-19 18:36 | PC.NURSE ---
Pt presented to ED via EMS from home, called himself for help, wants help with alcohol withdrawal and detox. Daily drinker, 15 nips a day, last drink approx 30 mins prior to arrival of EMS. Hx of DTs and alcohol seizures. Denies drug use, falls or illnesses. Alert and oriented, breathing even and unlabored, skin warm and dry. Endorses SI to this RN, reports he wants to off himself , vague. Denies HI. Changed into safety clothing, belongings secured. 1:1 sitter
--- NOTE | 2024-03-19 18:48 | ED.GENADULT ---
HPI - General Adult General Chief complaint: Psychiatric Symptoms Stated complaint: ALCOHOL WITHDRAWAL Time Seen by Provider: 03/19/24 18:22 Source: patient Limitations: no limitations History of Present Illness HPI narrative: Patient is a 53-year-old male who presents emergency department requesting assistance with alcohol withdrawal. He reports that he is a daily drinker consuming approximately 15 lips daily. He has been drinking since this morning and reports he last drank a few naps about 30 minutes prior to arrival. He endorsed vague SI to the nurse without any specific plan, he does not wish to talk to myself about this. He states ?I am alcohol sick, I need something now?, when asked for further elaboration he reports feeling weak and nauseous. He does state that he was sober from alcohol for about 2 years up until 2 months ago when he began drinking again. He states he is also supposed to be taking ?Suboxone injection? but it would seem as though he was not compliant with this due to his alcohol consumption. He reports that he is following with [facility] in [place], and he was recently given a 7 day supply of Suboxone films which he has not taken since the day prior to yesterday. Related Data Previous Rx's ?Medication ?Instructions ?Recorded buprenorphine 2 mg-naloxone 0.5 mg 1 film sublingual DAILY #0 ea 01/04/24 sublingual film (Suboxone) Allergies Allergy/AdvReac Type Severity Reaction Status Date / Time No Known Allergies Allergy Verified 03/19/24 18:22 [No Known Allergies*] Review of Systems Review of Systems: Yes all other systems are reviewed and are negative PMFSH Past Medical History Attestation statement: The following information was validated with the patient. Source: old records reviewed Medical History Chronic back pain Drug dependence Depression Gout Alcohol withdrawal seizure Anxiety Alcohol abuse Seizure disorder Adjustment disorder Schizophrenia Alcohol abuse Depression Anxiety Family History Family History Other Cancer Dementia Stroke Social History Social History Household Members: None Housing: Apartment Do you presently have visiting nurse or other home services: No Alcohol intake: current Alcohol intake frequency: 3 or more drinks per day Alcohol type: hard liquor Comment: 1:1 Patient Tobacco Use Status: Refuse Tobacco use screen Tobacco use type: Cigarette Cigarette Packs Per Day: 0.5 Cigarettes Per Day: 10 Smoked in Last 30 Days: Yes Second Hand Smoke Exposure: No Use of substances other than those prescribed or required for medical reasons: No Substance Use Type: Crack/Cocaine Advance Directives: No Advance Directives Information Provided: No service: No Current occupational status: other Sexual orientation: Straight/Heterosexual Physical Exam ED Vital Signs: Vital Signs - 24 hr 03/19/24 18:19 03/19/24 19:41 03/19/24 21:28 Temperature 98 F 97.6 F 98.4 F Pulse Rate 94 92 89 Respiratory Rate 18 20 13 Blood Pressure 146/92 H 155/98 H 100/64 Pulse Oximetry 97 98 95 Oxygen Delivery Method Room Air Room Air Room Air 03/20/24 04:18 03/20/24 07:29 03/20/24 08:42 Temperature 98.0 F 98.2 F Pulse Rate 92 91 97 Respiratory Rate 14 15 19 Blood Pressure 127/74 127/74 164/89 H Pulse Oximetry 96 97 97 Oxygen Delivery Method Room Air Room Air BMI result Body Mass Index 21.1 Appearance: Alert.?Oriented to person, place and time. No acute distress.?Normal affect. Eyes: Pupils equal, round and reactive to light.? ENT: Pharynx normal.?? Neck: Normal inspection.? Neck supple.?? CVS: Heart sounds normal. Normal heart rate and rhythm.? Pulses normal.?? Respiratory: No respiratory distress.? Lung sounds clear to auscultation bilaterally?? Abdomen: Soft and non-tender. Normoactive bowel sounds. ?? Skin: Skin warm and dry.? Normal skin color.? ?? Extremities: No lower extremity edema.? No calf ttp? Neuro: Moves all extremities spontaneously. Sensation intact bilaterally. CN II-XII intact. No focal neuro deficits. Ambulates with normal steady gait. Course Reevaluation(s) Reevaluation #1: Patient has been resting comfortably on the stretcher with the majority of the shift. No distress. Vital signs are stable. Time: 23:39 Reevaluation #2: I was called to patient's bedside. CIWA 15. he is alert and oriented. tremulous. answering all questions. he reports history of etoh withdrawal seizure. I see he was given a once time dose of ativan 1901 yesterday. I also see that there is a PRN ativan order however I do not seen any documentation that this was given at any time over night. 2mg Ativen given PO. I have also placed order for pheno protocol. Time: 08:48 Reevaluation #3: I spoke with hospitalist, Dr. Zamarripa who has agreed to admit patient for acute etoh withdrawal requiring phenobarb. Admission orders and bed request placed. Time: 11:31 Medications Administered Generic Name Dose Route Start Last Admin Trade Name Freq PRN Reason Stop Dose Admin Lorazepam 2 mg 03/19/24 18:53 03/20/24 08:45 Lorazepam 1 Mg Tablet PO 2 mg Q4H PRN Administration Alcohol Withdrawal Discontinued Medications Generic Name Dose Route Start Last Admin Trade Name Freq PRN Reason Stop Dose Admin Lorazepam 1 mg 03/19/24 19:01 03/19/24 19:22 Lorazepam 1 Mg Tablet PO 03/19/24 19:02 1 mg ONCE ONE Administration Ondansetron HCl 4 mg 03/19/24 19:15 03/19/24 19:22 Ondansetron Odt 4 Mg Tab.Rapdis TRANSLINGU 03/19/24 19:16 4 mg ONCE ONE Administration Phenobarbital Sodium 270 mg 03/20/24 09:00 03/20/24 09:31 Phenobarbital Sodium 130 Mg/Ml Im Once IM 03/20/24 09:01 270 mg ONCE ONE Administration Medical Decision Making Medical Decision Making [facility] Narrative: Patient is a 53-year-old male who presents emergency department requesting assistance with detox from alcohol as per HPI. He arrives intoxicated though endorsing so he felt as if he was going through withdrawal having some nausea and anxiety. Initial labs revealing mild leukopenia which he had been seen prior, no significant anemia, thrombocytopenia which is likely resultant of his alcohol use disorder. No electrolyte derangement. No LENNY. LFTs overall unremarkable, mildly elevated AST at 63. Urinalysis without evidence of infection. Tas is positive for bruit denies home as well as cocaine. Ethyl alcohol level 359. Planning to monitor CIWA, plan for management with oral lorazepam, once clinically sober will refer to care team for evaluation. Differential Diagnosis Differential Diagnoses: The differential diagnosis associated with the presentation includes (See narrative above and below for further detail) Admission/Observation Consideration of admission/observation: Escalation of care including admission/observation considered Patient is being observed in the Emergency Department for alcohol use disorder requesting assistance with detox, as well as anxiety. Observation time was started at 20:00 on 03/19/2024.?The patient is currently stable and non-toxic appearing. Observation is being initiated in the Emergency Department to allow time to help differentiate if the patient's anxiety is due to Substance Induced Mood Disorder and Anxiety versus Major Depressive Disorder, Bipolar Dimple, Bipolar Depression, and Schizophrenia. The patient will receive frequent assessments including CIWA scores from the provider as well as from nursing staff. The patient will also be monitored for the need of PRN agitation medications such as Haldol, Ativan, and Benadryl. Lab Data MDM Lab Attestation statement: I reviewed the patient's lab results. (See course narrative) 03/19/24 19:34 03/19/24 19:34 Labs: Lab Results 03/19/24 Range/Units 19:34 WBC 3.4 L (4.8-10.8) X10*3/uL RBC 4.54 L (4.60-5.80) X10*6/uL Hgb 14.6 D (14.0-18.0) g/dl Hct 40.9 L (42.0-52.0) % MCV 90.1 (80.0-98.0) fL MCH 32.2 (27.0-33.0) pg MCHC 35.7 (31.0-36.0) g/dl RDW 13.5 (11.0-16.0) % Plt Count 83 L D (160-400) X10*3/uL MPV 9.4 (9.4-12.4) fL Immature Gran % (Auto) 0.3 (0.0-0.4) % Neut % (Auto) 59.5 (45-73) % Lymph % (Auto) 25.7 (20-40) % [place] % (Auto) 11.8 H (2-11) % Eos % (Auto) 2.1 (0-4) % Baso % (Auto) 0.6 (0-2) % Lymph # (Auto) 0.9 L (1.2-4.9) X10*3/uL [place] # (Auto) 0.4 (0.1-1.2) X10*3/uL Eos # (Auto) 0.1 (0.0-0.4) X10*3/uL Baso # (Auto) 0.0 (0.0-0.2) X10*3/uL Abs Immat Gran (auto) 0.01 (0.00-0.03) X10*3/uL Absolute Neuts (auto) 2.0 (2.0-8.3) x10*3/uL Absolute Nucleated RBC 0.000 (0.0-0.012) X10*3/uL Nucleated RBC % (auto) 0.0 (0.0-0.2) /100WBC Sodium 144 (135-145) mmol/L Potassium 3.6 (3.3-5.1) mmol/L Chloride 101 (96-108) mmol/L Carbon Dioxide 26 (22-29) mmol/L Anion Gap 21 H (12-20) BUN 12 (9-16) mg/dL Creatinine 0.86 (0.5-1.4) mg/dL Estim Creat Clear Calc 86.6 Estimated GFR > 60 Random Glucose 85 (60-115) mg/dL Calcium 9.9 D (8.4-10.2) mg/dL Magnesium 2.1 (1.6-2.6) mg/dL Total Bilirubin 0.7 (0.0-1.0) mg/dL AST 63 H (5-37) U/L ALT 32 (0-40) U/L Alkaline Phosphatase 87 (39-117) U/L Total Protein 8.1 H (6.5-8.0) g/dL Albumin 4.9 (3.5-5.0) g/dL Urine Color Yellow Urine Appearance Clear Urine pH 6.5 (5.0-9.0) Ur Specific [place] <= 1.005 (1.005-1.025) Urine Protein Negative (Neg-Trace) mg/dL Urine Glucose (UA) Negative (Negative) mg/dL Urine Ketones Negative (Negative) mg/dL Urine Blood Small (1+) H (Negative) Urine Nitrite Negative (Negative) Ur Leukocyte Esterase Negative (Negative) Urine RBC 0-2 (0-2) /HPF Urine WBC 0-5 (0-5) /HPF Ur Squamous Epith Cells 0-2 (0-2) /HPF Urine Bacteria None Seen (None Seen) Hyaline Casts 0-2 (0-2) /LPF Salicylates < 5.0 L (15-30) mg/dL Urine Opiates Screen Not Detected (Not Detect) Ur Buprenorphine Scrn Positive H (Not Detect) ng/mL Ur Oxycodone Screen Not Detected (Not Detect) ng/mL Urine Methadone Screen Not Detected (Not Detect) ng/mL Urine Fentanyl Screen Not Detected (Not Detect) Ur Barbiturates Screen Not Detected (Not Detect) Ur Phencyclidine Scrn Not Detected (Not Detect) Ur Amphetamines Screen Not Detected (Not Detect) U Benzodiazepines Scrn Not Detected (Not Detect) Urine Cocaine Screen POSITIVE H (Not Detect) U Marijuana (THC) Screen Not Detected (Not Detect) Ethyl Alcohol 359 H* mg/dL Independent Historian Clinical information obtained from an independent historian. History obtained from or confirmed by: EMS External Record Review External record reviewed: Outpatient record Discharge Plan Discharge Clinical Impression: Alcohol withdrawal, Alcohol use disorder Patient Disposition: Admitted As Inpatient Interventions: [place]-Suicide Risk Severity Scale Last Done: 03/19/24 18:27
[2024-03-19] MEDS: Ondansetron ODT 4 MG TAB.RAPDIS TRANSLINGU (19:22)
[2024-03-19] MEDS: LORazepam 1 MG TABLET PO (19:22)
--- NOTE | 2024-03-19 19:24 | PC.NURSE ---
Took over care from RN Alma, Medicated pt per mar, pt a&o, denies any sob or chest pain at this time, pt changed over and on bedside monitor.
[2024-03-19 19:41] VITALS: BP 155/98; PULSE 92; RESP 20; TEMP 36.4; O2SAT 98
[2024-03-19 19:41] LABS: MANUAL DIFF FLAG NO
[2024-03-19 19:45] LABS: Basophils Percent Auto 0.6 % (0-2); Eosinophils Absolute Auto 0.1 X10*3/uL (0.0-0.4); Eosinophils Percent Auto 2.1 % (0-4); Hematocrit 40.9 % (42.0-52.0); Hemoglobin 14.6 g/dl (14.0-18.0); Imm Gran Abs Auto 0.01 X10*3/uL (0.00-0.03); Imm Gran Pct Auto 0.3 % (0.0-0.4); Lymphocytes Absolute Auto 0.9 X10*3/uL (1.2-4.9); Lymphocytes Percent Auto 25.7 % (20-40); Mean Corpuscular HGB Conc 35.7 g/dl (31.0-36.0); Mean Corpuscular Hemoglobin 32.2 pg (27.0-33.0); Mean Corpuscular Volume 90.1 fL (80.0-98.0); Mean Platelet Volume 9.4 fL (9.4-12.4); Monocytes Absolute Auto 0.4 X10*3/uL (0.1-1.2); Monocytes Percent Auto 11.8 % (2-11); Neutrophils Percent Auto 59.5 % (45-73); Red Blood Count 4.54 X10*6/uL (4.60-5.80); Red Cell Distribution Width 13.5 % (11.0-16.0); White Blood Count 3.4 X10*3/uL (4.8-10.8)
[2024-03-19 19:48] LABS: Appearance Urine Clear; Color Urine Yellow; Glucose Urine UA Negative (Negative); Leukocyte Esterase Urine Negative (Negative); Nitrite Urine Negative (Negative); PH 6.5 (5.0-9.0); Specific Gravity - Urine <= 1.005 (1.005-1.025); UMIC TRIGGER UACC YES; Urine Blood Small (1+) (Negative); Urine Ketones Negative (Negative); Urine Protein Negative (Neg-Trace)
[2024-03-19 19:56] LABS: Amphetamine Screen Urine Not Detected (Not Detect); Barbiturates, Urine Not Detected (Not Detect); Benzodiazepines Screen Urine Not Detected (Not Detect); Buprenorphine Scr Positive (Not Detect); Cannabinoid Screen Urine Not Detected (Not Detect); Cocaine Screen Urine POSITIVE (Not Detect); Fentanyl, urine Not Detected (Not Detect); Methadone Screen, Urine Not Detected (Not Detect); Opiate Screen Urine Not Detected (Not Detect); Oxycodone Screen Urine Not Detected (Not Detect); Phencyclidine Screen Urine Not Detected (Not Detect)
[2024-03-19 20:02] LABS: Bacteria Urine None Seen (None Seen); Hyaline Casts Urine 0-2 /LPF (0-2); RBC Urine 0-2 /HPF (0-2); Squamous Epithelial Cell Urine 0-2 /HPF (0-2); WBC Urine 0-5 /HPF (0-5)
[2024-03-19 20:09] LABS: Platelet Count 83 X10*3/uL (160-400)
[2024-03-19 20:11] LABS: Alanine Aminotransferase 32 U/L (0-40); Albumin Level 4.9 g/dL (3.5-5.0); Alkaline Phosphatase 87 U/L (39-117); Anion Gap 21 (12-20); Aspartate Amino Transferase 63 U/L (5-37); Bilirubin Total 0.7 mg/dL (0.0-1.0); Blood Urea Nitrogen 12 mg/dL (9-16); Calcium 9.9 mg/dL (8.4-10.2); Carbon Dioxide 26 mmol/L (22-29); Chloride 101 mmol/L (96-108); Creatinine Clr Calc Pharmacy 86.6; Estimated Glomerular Filt Rate > 60; Ethanol 359 mg/dL; Glucose Random 85 mg/dL (60-115); Magnesium 2.1 mg/dL (1.6-2.6); Potassium 3.6 mmol/L (3.3-5.1); Sodium 144 mmol/L (135-145); Total Protein 8.1 g/dL (6.5-8.0)
[2024-03-19 20:24] LABS: Salicylate < 5.0 mg/dL (15-30)
[2024-03-19 21:28] VITALS: BP 100/64; PULSE 89; RESP 13; TEMP 36.9; O2SAT 95
[2024-03-20] VITALS (7 sets, daily range): BP systolic 127–164; BP diastolic 74–97; PULSE 78–97; RESP 14–19; TEMP 36.7–37.1; O2SAT 94–97
--- NOTE | 2024-03-20 04:25 | PC.NURSE ---
pt is sleeping at this time, no sign of distress at this time.
--- NOTE | 2024-03-20 05:38 | PC.NURSE ---
pt is sleeping an co-operative at this time.
--- NOTE | 2024-03-20 06:55 | PC.NURSE ---
pt is sleeping, no sign of distress this morning.
--- NOTE | 2024-03-20 08:33 | PC.NURSE ---
called [facility] in [place] to verify the suboxone, left a voice message to attempt to verily the dose, waiting for a call back [phone]
[2024-03-20] MEDS: LORazepam 1 MG TABLET 2 MG PO (08:45)
[2024-03-20] MEDS: PHENobarbitaL sodium 130 MG/ML IM ONCE 270 MG IM (09:31)
--- NOTE | 2024-03-20 10:08 | MHC.CARE ---
Pt is seeking help with substance use. He has been assessed by CARE Team and does not meet the criteria for inpatient psychiatric admission. He has been referred to the Recovery Team.
--- NOTE | 2024-03-20 11:14 | PHA.MEDREC ---
Addendum entered by Светлана Mckay RPh 03/20/24 11:25: Reviewed by [facility] Original Note: Pharmacy Consult ? Medication Reconciliation Pharmacy has completed the medication reconciliation. Spoke to patient to confirm med list. Patient states his is only taking Suboxone 2 mg daily, last fill date 03/01/24 for 12 days. Patient states he last took his medication was 03/19/24
--- NOTE | 2024-03-20 11:24 | P.HPHOSP_ITS ---
History of Present Illness Date of Service: 03/20/24 Attending physician on admission: Kathy Paz Chief Complaint: etoh withdrawal Patient is a 53-year-old male with a past medical history significant for gout, depression, anxiety, alcohol abuse, alcohol withdrawal with seizure, schizophrenia and hypertension who presented to the ED wanting to withdrawal from alcohol. He drinks about 15 nips per day, last drink 30 minutes prior to arriving to the ED. He also admitted to [facility]. He was complaining of nausea and weakness which has improved in the ED. he reports he has been drinking for the past few months but was sober for 2 years prior. He denies headache, nausea, vomiting, diaphoresis visual or auditory hallucinations. Does have mild anxiety about who is taking care of his dog and mild agitation. Review of Systems 2 Constitutional: Constitutional: Reports fatigue, Denies headache(s) and Reports weakness Eyes: Eyes: Denies change in vision and Denies other visual disturbances ENT: Denies dizziness, Denies headache(s), Denies nasal congestion, Denies nasal discharge and Denies sore throat Cardiovascular: Cardiovascular: Denies chest pain, Denies rapid heart rate, Denies leg edema and Denies dyspnea Respiratory: Respiratory: Denies chest congestion, Denies cough and Denies dyspnea Gastrointestinal: Gastrointestinal: Denies constipation, Denies diarrhea, Denies nausea, Denies vomiting and Denies hematemesis Genitourinary: Genitourinary: Denies dysuria Musculoskeletal: Musculoskeletal: Denies numbness and Denies tingling Integumentary/Breasts: Skin/Breast: Denies rash Neurologic: Denies confusion, Denies dizziness, Denies headache(s), Denies numbness, Denies convulsions, Denies seizure-like activity, Denies tingling and Reports weakness Psychiatric: Psychiatric: Reports anxiety and Denies confusion Endocrine: Endocrine: Reports fatigue [facility] Medical History Chronic back pain Drug dependence Depression Gout Alcohol withdrawal seizure Anxiety Alcohol abuse Seizure disorder Adjustment disorder Schizophrenia Alcohol abuse Depression Anxiety Functional capacity: independent ambulation Family History Other Cancer Dementia Stroke Social History Household Members: None Housing: Apartment Do you presently have visiting nurse or other home services: No Alcohol intake: current Alcohol intake frequency: 3 or more drinks per day Alcohol type: hard liquor Comment: 1:1 Patient Tobacco Use Status: Refuse Tobacco use screen Tobacco use type: Cigarette Cigarette Packs Per Day: 0.5 Cigarettes Per Day: 10 Smoked in Last 30 Days: Yes Second Hand Smoke Exposure: No Use of substances other than those prescribed or required for medical reasons: No Substance Use Type: Crack/Cocaine Advance Directives: No Advance Directives Information Provided: No service: No Current occupational status: other Sexual orientation: Straight/Heterosexual Meds Allergies Allergy/AdvReac Type Severity Reaction Status Date / Time No Known Allergies Allergy Verified 03/19/24 18:22 [No Known Allergies*] Active Medications: Current Medications Acetaminophen (Acetaminophen 325 Mg Tablet) 650 mg PO Q6H PRN PRN Reason: Pain, Mild (Pain Scale 1-3), fever or headache Calcium Carbonate (Calcium Carbonate 750 Mg Tab.Chew) 750 mg PO Q4H PRN PRN Reason: Heartburn Enoxaparin Sodium (Enoxaparin Sodium 40 Mg/0.4 Ml Syringe) 40 mg SUBCUT Q24H [facility] Folic Acid (Folic Acid 1 Mg Tablet) 1 mg PO DAILY [facility] Stop: 03/24/24 08:59 Lorazepam (Lorazepam 1 Mg Tablet) 2 mg PO Q4H PRN PRN Reason: Alcohol Withdrawal Last Admin: 03/20/24 08:45 Dose: 2 mg Magnesium Hydroxide (Milk Of Magnesia 30 Ml Oral.Susp) 30 ml PO DAILY PRN PRN Reason: Constipation Melatonin (Melatonin 3 Mg Tablet) 6 mg PO BEDTIME PRN PRN Reason: Insomnia Multivitamins/Vitamin C (Multivitamin Tablet) 1 tab PO DAILY [facility] Stop: 03/24/24 08:59 Ondansetron HCl (Ondansetron Hcl 4 Mg/2 Ml Vial) 4 mg IVPUSH Q8H PRN PRN Reason: Nausea and Vomiting Pharmacy Consult (Consult Rx Etoh Phenob Im/Po) 1 each MISCELLANE ONCE PRN; Protocol PRN Reason: Consult order Phenobarbital (Phenobarbital 15 Mg Tablet) 45 mg PO BID [facility] Stop: 03/22/24 09:01 Phenobarbital (Phenobarbital 30 Mg Tablet) 30 mg PO BID [facility] Stop: 03/24/24 09:01 Phenobarbital (Phenobarbital 30 Mg Tablet) 30 mg PO BEDTIME [facility] Stop: 03/25/24 21:01 Phenobarbital Sodium (Phenobarbital Sodium 130 Mg/Ml Vial Im Q3hx2) 200 mg IM Q3H [facility] Stop: 03/20/24 15:01 Sodium Chloride (0.9 % Sodium Chloride Flush 3 Ml Syringe) 3 ml IVFLUSH QSHIFT PRETTY Thiamine HCl (Thiamine Hcl 100 Mg Tablet) 100 mg PO DAILY [facility] Stop: 03/24/24 08:59 Physical Exam 2 Vital Signs and Narrative: Vital Signs: Last Vital Signs Temp 98.2 F 03/20/24 07:29 Pulse 97 03/20/24 08:42 Resp 19 03/20/24 08:42 BP 164/89 H 03/20/24 08:42 Pulse Ox 97 03/20/24 08:42 O2 Del Method Room Air 03/20/24 07:29 BMI result Body Mass Index 21.1 General: AOx3, no acute distress Resp: CTA bilaterally CVS: S1, S2, RRR GI: +BS, NT, no distention Skin: Warm, dry Neuro: Cranial nerves II-XII grossly intact bilaterally. Motor grossly intact bilaterally Extremities: No edema, no tremor visualized or felt at fingertip Psych: Appropriate affect Const: General: No confusion Orientation/consciousness: No confusion Neuro: General: No confusion Results Labs 03/19/24 19:34 03/19/24 19:34 Labs: Laboratory Results - last 24 hr 03/19/24 19:34 MCV 90.1 MCH 32.2 MCHC 35.7 RDW 13.5 Plt Count 83 L D MPV 9.4 Immature Gran % (Auto) 0.3 Neut % (Auto) 59.5 Lymph % (Auto) 25.7 [place] % (Auto) 11.8 H Eos % (Auto) 2.1 Baso % (Auto) 0.6 Lymph # (Auto) 0.9 L [place] # (Auto) 0.4 Eos # (Auto) 0.1 Baso # (Auto) 0.0 Abs Immat Gran (auto) 0.01 Absolute Neuts (auto) 2.0 Absolute Nucleated RBC 0.000 Nucleated RBC % (auto) 0.0 Anion Gap 21 H Estim Creat Clear Calc 86.6 Estimated GFR > 60 Random Glucose 85 Calcium 9.9 D Magnesium 2.1 Total Bilirubin 0.7 AST 63 H ALT 32 Alkaline Phosphatase 87 Total Protein 8.1 H Albumin 4.9 Urine Color Yellow Urine Appearance Clear Urine pH 6.5 Ur Specific [place] <= 1.005 Urine Protein Negative Urine Glucose (UA) Negative Urine Ketones Negative Urine Blood Small (1+) H Urine Nitrite Negative Ur Leukocyte Esterase Negative Urine RBC 0-2 Urine WBC 0-5 Ur Squamous Epith Cells 0-2 Urine Bacteria None Seen Hyaline Casts 0-2 Salicylates < 5.0 L Urine Opiates Screen Not Detected Ur Buprenorphine Scrn Positive H Ur Oxycodone Screen Not Detected Urine Methadone Screen Not Detected Urine Fentanyl Screen Not Detected Ur Barbiturates Screen Not Detected Ur Phencyclidine Scrn Not Detected Ur Amphetamines Screen Not Detected U Benzodiazepines Scrn Not Detected Urine Cocaine Screen POSITIVE H U Marijuana (THC) Screen Not Detected Ethyl Alcohol 359 H* Assessment and Plan (1) Alcohol use disorder: Status: Acute (2) Alcohol withdrawal: Status: Acute (3) Substance use disorder: Status: Acute Plan Patient is a 53-year-old male with a past medical history significant for gout, depression, anxiety, alcohol abuse, alcohol withdrawal with seizure, substance use disorder, schizophrenia and hypertension who presented to the ED wanting to withdrawal from alcohol. He was feeling nauseous and weak which has improved since arriving to the ED. Alcohol withdrawal - CIWA currently 2, continue CIWAs Q4H - phenobarb protocol - folic acid, thiamine and multivitamin daily - magnesium normal, 2.1 - seizure precautions - addiction med consult - admit to med tele Alcohol abuse - cessation discussed and encouraged - addiction med consult Substance use disorder - toxicology positive for cocaine - continue Suboxone - addiction med consult as above Mood disorder/schizophrenia - no current medications - CARE team evaluated patient - no need for inpatient stay Hypertension - no home meds - we will monitor while here Full code VTE prophylaxis: Lovenox Patient here for alcohol withdrawal complicated by previous history of alcohol withdrawal seizure, requiring admission for at least 2 midnights stay for medical withdrawal and monitoring. Quality Stroke Does the patient have a stroke diagnosis?: No VTE Prior VTE?: No VTE Risk Level:: Medical - moderate - high VTE Device Contraindication: Treatment Not Indicated VTE Drug Contraindication: N/A - Med Ordered
[2024-03-20] MEDS: Lactated Ringers 1,000 ML 80 ML IVCONT (12:22)
[2024-03-20] MEDS: Enoxaparin Sodium 40 MG/0.4 ML SYRINGE SUBCUT (12:22)
[2024-03-20] MEDS: Buprenorphine/Naloxone 2/0.5mg FILM 1 FILM SUBLINGUAL (12:22)
[2024-03-20] MEDS: PHENobarbitaL sodium 130 MG/ML VIAL IM Q3Hx2 200 MG IM ×2 (12:22→15:14)
--- NOTE | 2024-03-20 12:28 | PC.NURSE ---
alert, speech clear, skin wpd, sr on monitor, denies si/hi
--- NOTE | 2024-03-20 19:57 | MHC.EDTECH ---
This tech took over care of patient at 1900,rounded and introduced self to pt,vitals taken,patient appears to be comfortable,resting with eyes closed,call alejo in reach
--- NOTE | 2024-03-20 20:15 | MHC.EDTECH ---
Offered patient his dinner tray,pt refused,RN aware
[2024-03-20] MEDS: PHENobarbitaL 15 MG TABLET 45 MG PO (22:03)
--- NOTE | 2024-03-20 22:30 | PC.NURSE ---
Assumed care of pt at 1999. pt a/ox3. denies pain, vss, CIWA 4. Able to answer questions appropriately. Fluids running at 80mls, pt on satellite project site monitor NSR 80 bpm. PT requesting t/w to get in touch with Quinn from [facility]- he was supposed to get his dog and bring dog to [place]. Plan of care ongoing
--- NOTE | 2024-03-21 02:33 | PC.NURSE ---
pt cleared by care team and being admitted medically. Discussed situation with CCs- appropriate for pt to have cell phone ad other belongings. Changed into hospital gown.
--- NOTE | 2024-03-21 02:46 | PC.NURSE ---
provider notified of pts elevated bp- no new orders at this time.
[2024-03-21] MEDS: Lactated Ringers 1,000 ML 80 ML IVCONT (03:37)
[2024-03-21 04:00] VITALS: BP 156/92; PULSE 74; RESP 18; TEMP 36.6; O2SAT 97
--- NOTE | 2024-03-21 04:34 | PC.NURSE ---
Pt reports feeling fine and hopeful that he's discharged. CIWA is 1. Pt attributes lesser sx d/t period of recent sobriety 2 months previously
[2024-03-21 05:17] LABS: MANUAL DIFF FLAG NO
[2024-03-21 05:23] LABS: Basophils Percent Auto 0.4 % (0-2); Eosinophils Absolute Auto 0.1 X10*3/uL (0.0-0.4); Eosinophils Percent Auto 1.1 % (0-4); Hematocrit 35.2 % (42.0-52.0); Hemoglobin 12.3 g/dl (14.0-18.0); Imm Gran Abs Auto 0.01 X10*3/uL (0.00-0.03); Imm Gran Pct Auto 0.2 % (0.0-0.4); Lymphocytes Absolute Auto 0.7 X10*3/uL (1.2-4.9); Lymphocytes Percent Auto 15.4 % (20-40); Mean Corpuscular HGB Conc 34.9 g/dl (31.0-36.0); Mean Corpuscular Volume 91.7 fL (80.0-98.0); Monocytes Absolute Auto 0.3 X10*3/uL (0.1-1.2); Monocytes Percent Auto 7.3 % (2-11); Neutrophils Absolute Auto 3.4 x10*3/uL (2.0-8.3); Neutrophils Percent Auto 75.6 % (45-73); Red Blood Count 3.84 X10*6/uL (4.60-5.80); Red Cell Distribution Width 13.2 % (11.0-16.0); White Blood Count 4.6 X10*3/uL (4.8-10.8)
[2024-03-21 05:26] LABS: Platelet Count 72 X10*3/uL (160-400)
[2024-03-21 05:38] LABS: Anion Gap 15 (12-20); Blood Urea Nitrogen 11 mg/dL (9-16); Calcium 9.1 mg/dL (8.4-10.2); Carbon Dioxide 26 mmol/L (22-29); Chloride 99 mmol/L (96-108); Estimated Glomerular Filt Rate > 60; Glucose Random 98 mg/dL (60-115); Potassium 3.3 mmol/L (3.3-5.1); Sodium 137 mmol/L (135-145)
--- NOTE | 2024-03-21 06:15 | PC.NURSE ---
up to BR with steady gait.
[2024-03-21] MEDS: Buprenorphine/Naloxone 2/0.5mg FILM 1 FILM SUBLINGUAL (08:45)
[2024-03-21] MEDS: Folic Acid 1 MG TABLET PO (08:46)
[2024-03-21] MEDS: Thiamine HCL 100 MG TABLET PO (08:46)
[2024-03-21] MEDS: PHENobarbitaL 15 MG TABLET 45 MG PO (08:46)
[2024-03-21] MEDS: Multivitamin TABLET 1 TAB PO (08:46)
[2024-03-21 10:18] VITALS: BP 147/86; PULSE 67; RESP 18; TEMP 36.8; O2SAT 96
--- NOTE | 2024-03-21 10:46 | MHC.CM.PN ---
Pt lives alone (with his dog), he has no home health services, or DME. HCP discussed, he declined to complete one, said maybe he will later. He said he goes to [facility], PCP is Kuldeep De Leon. He will need assistance with transportation home at [place]. DCP: TBD to have addiction medicine eval. CM to follow for DC needs.
--- NOTE | 2024-03-21 11:01 | P.DS_ITS ---
DS: Providers Provider Date of Service: 03/21/24 Date of admission: 03/20/24 11:19 Date of discharge: 03/21/24 Primary care physician: Unknown Physician Consults: 03/19/24 20:13 Consult to Care Team Stat Comment: Reason for consultation: vague SI , assistance with ETOH detox 03/21/24 09:29 Addiction Medicine Routine Consulting Provider: Addiction Covering Reason for consultation: etoh abuse, etoh withdrawal Has provider been notified: No DS: Diagnosis Discharge Diagnosis (1) Alcohol use disorder: Status: Acute (2) Alcohol withdrawal: Status: Acute (3) Substance use disorder: Status: Acute DS: Summary Hospital Course Hospital Course: H&P on admission: Patient is a 53-year-old male with a past medical history significant for gout, depression, anxiety, alcohol abuse, alcohol withdrawal with seizure, schizophrenia and hypertension who presented to the ED wanting to withdrawal from alcohol. He drinks about 15 nips per day, last drink 30 minutes prior to arriving to the ED. He also admitted to [facility]. He was complaining of nausea and weakness which has improved in the ED. he reports he has been drinking for the past few months but was sober for 2 years prior. He denies headache, nausea, vomiting, diaphoresis visual or auditory hallucinations. Does have mild anxiety about who is taking care of his dog and mild agitation. Hospital course: Patient was admitted to the hospital yesterday for alcohol withdrawal, nausea and weakness. Placed on phenobarb per protocol and patient tolerating well, would like to go home today. No nausea, vomiting, headache, tremor, visual or auditory hallucinations. CIWA scale has been low, currently 0. Has outpatient services for addiction med at [facility] where he receives his Suboxone. Status at Discharge Functional status at discharge: independent ambulation Overall status at discharge: patient is back to baseline Time Attestation Discharge Coordination Time (in mins): 40 Quality: Safe Use of Opioids Does Pt have an Active Cancer Diagnosis on the Problem List?: No Quality: Stroke Does the patient have a stroke diagnosis?: No Physical Exam Vital Signs: Vital Signs: Last Vital Signs Temp 98.2 F 03/21/24 10:18 Pulse 67 03/21/24 10:18 Resp 18 03/21/24 10:18 BP 147/86 H 03/21/24 10:18 Pulse Ox 96 03/21/24 10:18 O2 Del Method Room Air 03/21/24 10:18 BMI result Body Mass Index 21.1 General: AOx3, no acute distress Resp: CTA bilaterally CVS: S1, S2, RRR GI: +BS, NT, no distention Skin: Warm, dry Neuro: Cranial nerves II-XII grossly intact bilaterally. Motor grossly intact bilaterally Extremities: No edema, no tremor Psych: Appropriate affect DS: Data Data Completed and Pending Completed studies during hospitalization [Text1]: Procedures Detoxification Services for Substance Abuse Treatment (12/28/23) Drainage of Abdominal Wall, Percutaneous Approach (12/28/23) Introduction of Vasopressor into Peripheral Vein, Percutaneous Approach (12/28/23) Labs on day of discharge: Laboratory Results - last 24 hr 03/21/24 04:26 WBC 4.6 L RBC 3.84 L Hgb 12.3 L Hct 35.2 L MCV 91.7 MCH 32.0 MCHC 34.9 RDW 13.2 Plt Count 72 L MPV 10.0 Immature Gran % (Auto) 0.2 Neut % (Auto) 75.6 H Lymph % (Auto) 15.4 L [place] % (Auto) 7.3 Eos % (Auto) 1.1 Baso % (Auto) 0.4 Lymph # (Auto) 0.7 L [place] # (Auto) 0.3 Eos # (Auto) 0.1 Baso # (Auto) 0.0 Abs Immat Gran (auto) 0.01 Absolute Neuts (auto) 3.4 Absolute Nucleated RBC 0.000 Nucleated RBC % (auto) 0.0 Sodium 137 Potassium 3.3 Chloride 99 Carbon Dioxide 26 Anion Gap 15 BUN 11 Creatinine 0.76 Estim Creat Clear Calc 98.0 Estimated GFR > 60 Random Glucose 98 Calcium 9.1 D Discharge Plan Discharge Anticipated Discharge Date/Time: 03/21/24 12:07 Patient Disposition: Home, Self-Care Discharge Diagnosis: alcohol withdrawal, alcohol abuse, substance use disorder Referrals: Physician,Unknown J [Primary Care Provider] - 1 Week Discharge Medications: Continued buprenorphine-naloxone [Suboxone] 2-0.5 mg Film 1 film sublingual DAILY Qty: 0 0RF Diet: Advance to usual diet Activity on Discharge: As tolerated Stand Alone Forms: Patient Portal Discharge page Print Language: Vietnamese Care Plan Goals: safe alcohol withdrawal and cessation Health Concerns: alcohol withdrawal alcohol abuse substance use disorder chronic anemia Plan of Treatment: continue alcohol cessation follow up with U[facility] regarding alcohol cessation follow up with PCP in 1-2 weeks Assessment: see above
[2024-03-21 12:41] VITALS: BP 138/78; PULSE 72; RESP 18; TEMP 36.8; O2SAT 97
--- NOTE | 2024-03-21 15:07 | MHC.RECOVRN ---
Met with pt in ED9 this morning prior to discharge after Addiction Medicine consult received for alcohol use. Pt currently admitted for alcohol withdrawal. Pt laying in bed, awake, alert, engages in conversation but somewhat dismissive of t/w. Pt reports he had been in recovery x 2 years with a recurrence 2 months ago. Pt reports 10 nips Black [place] daily since recurrence. Pt reports this was his longest time in recovery. Pt had gone to [facility]/residential program, total of 14 months. Upon going home, pt continued to maintain recovery utilizing therapy. Pt reports he has had his therapist through [facility] for 8-10 years. Reports total of 4 ATS admissions. Pt reports hx of one alcohol withdrawal related seizure. Reports in 2020 he was in [facility] x 2 months for a complicated alcohol withdrawal. Reports hx RAYRAY, is not interested in restarting, states they don't work. Pt reports his brother is supportive. Discussed recovery supports and resources, pt declines referrals at this time. Plans to dc home and follow up with therapist and psychiatrist. Pt reports he is well connected with [facility] and [facility]. Denies questions or concerns for t/w. Discussed with Cata Arteaga APRN.
== END 2024-03-21 12:34 | disposition home or self-care (01) | DRG 773 ==
LOC: HO.ED 03-20 10:50 → HO.EDOVER 03-20 11:25 → HO.IMC 03-21 09:23 → HO.EDOVER 03-21 11:28
PROVIDERS: Admitting Provider Physician Assistant; Emergency Provider Emergency Medicine; Visit Provider Physician Assistant
DX: F10.139 Alcohol abuse with withdrawal, unspecified (principal); F11.20 Opioid dependence, uncomplicated; F10.129 Alcohol abuse with intoxication, unspecified; Y90.8 Blood alcohol level of 240 mg/100 ml or more; I10 Essential (primary) hypertension; F20.9 Schizophrenia, unspecified
CPT/HCPCS: 36415; 80048; 80053; 80179; 80307; 81001; 83735; 85025; 99285; J1650; J2560; J7120; S9485

== ENCOUNTER → 2024-03-20 11:19 | Outpatient (BNV) | payer MEDICAID, SELFPAY | PROVIDERS: Admitting Provider Physician Assistant; Emergency Provider Emergency Medicine; Visit Provider Physician Assistant | DX: F10.90 Alcohol use, unspecified, uncomplicated (principal); F10.939 Alcohol use, unspecified with withdrawal, unspecified; F19.90 Other psychoactive substance use, unspecified, uncomplicated | CPT/HCPCS: 99223; 99239 ==